=== PATIENT | female | born 1985 | race Caucasian/White ===

== ENCOUNTER 2024-01-22 07:29 | Outpatient (OUT) | payer BC, SELFPAY ==
--- NOTE | 2024-01-22 07:35 | MM_ITS ---
Patient Name: ANGELINA EDWARDS MR#: [id number] : 1985 Exam Date: 01/22/2024 Ordering Doctor: NON-STAFF PHYSICIAN RADIOLOGY REPORT PROCEDURE: MM TOMOSYNTHESIS SCREENING BI COMPARISON: MG MAMM SCREEN 3D JESS CAD, 01/12/2023. INDICATIONS: Screening Calculator Name NCI Breast Cancer Risk Assessment Tool 5 Year Breast Cancer Risk 1.20% Lifetime Breast Cancer Risk 18.60% Personal Breast Cancer No Personal Ovarian Cancer No Treatments None Family Cancers Mother with breast cancer at age ~50. LOCATION: [facility] BREAST COMPOSITION: There are scattered areas of fibroglandular density. FINDINGS: DIAGNOSTIC CATEGORY 1--NEGATIVE. NO CHANGE FROM COMPARISON ASSESSMENT. Scattered benign-appearing calcifications are present. Scattered benign-appearing lymph nodes are present. RIGHT BREAST: No significant suspicious finding. LEFT BREAST: No significant suspicious finding. RECOMMENDATIONS: ROUTINE MAMMOGRAM AND CLINICAL EVALUATION IN 12 MONTHS. PLEASE NOTE: A NORMAL MAMMOGRAM DOES NOT EXCLUDE THE POSSIBILITY OF BREAST CANCER. A CLINICALLY SUSPICIOUS PALPABLE LUMP SHOULD BE BIOPSIED. Dictated by: Radames Figueredo MD on 01/22/2024 at 09:18 Approved by: Radames Figueredo MD on 01/22/2024 at 09:19
== END 2024-01-22 07:30 | disposition home or self-care (01) ==
LOC: RAD 07:32
PROVIDERS: PCP Family Medicine
DX: Z12.31 Encounter for screening mammogram for malignant neoplasm of breast (principal); Z80.3 Family history of malignant neoplasm of breast
CPT/HCPCS: 77063; 77067

== ENCOUNTER 2024-05-23 06:59 | Outpatient (OUT) | payer BC, SELFPAY ==
--- OUTSIDE RECORDS SUMMARY | 2024-05-23 07:03 | XMS_ITS | CCD ---
Author Organization [facility] Inform ion Partnership [facility] Care Team Providers Care Photolettering Machine Operator Name Role Phone ShaijonassharitaDenice Ada Primary Care Physician Abby Patterson Attending Unavailable Abby Patterson Admitting Unavailable QUANG, DR JUAREZ Admitting Unavailable QUANG, DR JUAREZ Attending Unavailable NADERER, DR NYDIA Valentine Primary Care Unavailable QUANG, DR JUAREZ Consulting Unavailable WEST, DR TROY Pineda Consulting Unavailable LAUREL, ANASTACIO Admitting Unavailable LAUREL, ANASTACIO Attending Unavailable LAUREL, ANASTACIO Consulting Unavailable HOY ., DR MALLORY Admitting Unavailable HOY ., DR MALLORY Attending Unavailable HOY ., DR MALLORY Consulting Unavailable NADERER, DR NYDIA Valentine Admitting Unavailable NADERER, DR NYDIA Valentine Attending Unavailable NADERER, DR NYDIA Valentine Primary Care Unavailable NADERER, DR NYDIA Valentine Consulting Unavailable LAURENT FUENTES Attending Unavailable Allergies Allergy Classification Reported Allergen(s) Allergy Type Date of Onset Reaction(s) Facility (2 sources) Erythromycin; Translations: [erythromycin] Drug Allergy [facility] (1 source) Erythromycin Drug Allergy 07-24-2022 [facility] Repository Problems Active Problems Problem Classification Problem Date Documented Da te Episodic/Chronic Other screening for suspected conditions (not mental disorders or infectious disease) (4 sources) Encounter for screening mammogram for malignant neoplasm of breast; Translations: [ENC SCR MAMMO MALIG NEOPLASM BREAST] Onset: 01-12-2023 Episodic Residual codes; unclassified (1 source) Family history of malignant neoplasm of breast; Translations: [FAMILY HX MALIG NEOPLASM OF BREAST] Onset: 01-20-2023 Episodic Past or Other Problems Problem Classification Problem Date Documented Da te Episodic/Chronic Administrative/social admission (4 sources) Encounter for pre-employment examination; Translations: [ENCOUNTER FOR PRE-EMPLOYMENT EXAM] Onset: 03-26-2022 Episodic Results Test Name Value Interpretation Reference Range Facility MG MAMM SCREEN 3D JESS CADon 01-12-2023 MG MAMM SCREEN 3D JESS CAD Patient: ANGELINA EDWARDS Exam Date: 01/12/2023 : 1985 Gender:F Ordering : DR LARRY DEL RIO M.D. Admission #: [id number] Family : Order #: [id number] CLICK HERE TO VIEW EXAM RADIOLOGY REPORT PROCEDURE: MAMMOGRAM SCREENING 3D BILATERAL CAD COMPARISON: None. INDICATIONS: Family history of malignant neoplasm of breast Calculator Name NCI Breast Cancer Risk Assessment Tool 5 Year Breast Cancer Risk 1.10% Lifetime Breast Cancer Risk 18.80% Personal Breast Cancer No Personal Ovarian Cancer No Treatments None Family Cancers Mother with breast cancer at age 50. LOCATION: [facility] BREAST COMPOSITION: Scattered areas fibroglandular density. FINDINGS: DIAGNOSTIC CATEGORY 1--NEGATIVE. Scattered benign-appearing calcifications are present. Scattered benign-appearing lymph nodes are present. RIGHT BREAST: No significant suspicious finding. LEFT BREAST: No significant suspicious finding. RECOMMENDATIONS: ROUTINE MAMMOGRAM AND CLINICAL EVALUATION IN 12 MONTHS. PLEASE NOTE: A NORMAL MAMMOGRAM DOES NOT EXCLUDE THE POSSIBILITY OF BREAST CANCER. A CLINICALLY SUSPICIOUS PALPABLE LUMP SHOULD BE BIOPSIED. Dictated by: Troy Figueredo MD on 01/12/2023 at 10:38 Approved by: Troy Figueredo MD on 01/12/2023 at 10:40 Normal [facility] PAP [id number] 01-01-2023 Cytology report Cyto stain Doc (Cvx/Vag) Note Invalid Interpretation Code [facility] Comment on above: Result Comment: TEST S RESULT FLAG UNITS REF RANGE LAB Clinician Provided Cytology Information Source.............Endocervix No. of containers..01 ThinPrep Vial DIAGNOSIS: 01 NEGATIVE FOR INTRAEPITHELIAL LESION OR MALIGNANCY. Specimen adequacy: 01 Satisfactory for evaluation. Endocervical and/or squamous metaplastic cells (endocervical component) are present. Performed by: Felix Moctezuma Surveillance Systems Engineer (ASCP) . 01 Note: Note 01 The Pap smear is a screening test designed to aid in the detection of premalignant and malignant conditions of the uterine cervix. It is not a diagnostic procedure and should not be used as the sole means of detecting cervical cancer. Both false-positive and false-negative reports do occur. Test Methodology: Note 01 This liquid based ThinPrep(R) pap test was screened with the use of an image guided system. FLAG LEGEND: L-Low Normal,H-High Normal,LL-Alert Low,HH-Alert High <-Panic Low,>-Panic High,A-Abnormal,AA-Critical Abnormal Performed at: [address] [place] [address] Orin Acharya MD, Performed By: #### 3 [id number] #### [facility] [address] [place] [address] HPV 16+18+31+33+35+39+45 +51+52+56+58+59+66+6 8 DNA Probe+sig amp Ql (Cvx) Negative Invalid Interpretation Code Negative [facility] Comment on above: Result Comment: This nucleic acid amplification test detects fourteen high-risk HPV types (16,18,31,33,35,39,45,51,52,56,58,59,66,68) without differentiation. Performed at: [facility] [place] [id number] MD Patrizia Sr Performed at: =[facility] [address] [id number] MD Patrizia Sr Performed By: #### 3 [id number] #### [facility] [address] [place] [address] [place] [address] Coding Summary.on 12-31-2022 Coding Summary. CD:[id number] Ww +PGhlYWQ+HV5IDEDmD83ss PXcrH1qR6WTAHiEDbqmSSY LNAtWOyBsbxSfUM4drNBvH XJu IC8+IJ3pSIZxUzldhAVnj8 F9mCH6A77jxc7qDPwspIV6 RXVpPfKjlbubc3yjcCf4PH cuNmluOyBt AHSsoZ35WSG3sF28Rv85oX LoqPFdw7lwbHn1WhMkSLEz ABY0sXycTZtvv3MhZOGzU3 6abHQtm8U0 EXEjiZiseHWmCxElbMS0aF 3qFQezckrna6slbvhzTrt0 fm45zOOko2X0vUU4S1Rsnr P2SQDfySTx NmylpCGOyA4cnzfnu9fwdt hpZnChWXVuNOl6QJq1BHZq hJnsJoJcLY60SXZ2CVOkxf ViH2TdTGWu xUguOoI2m3T0Lc6NR3ULRb ucU1NDRDAYQEwtbOT+PC90 aj05R3AfVaelWhj8FHHdRB T5dNA0dV7r PUTgCSyus5Z7aQH2L6Mcpr Fyel7kb5yoUFXjNVkeZ80d iMJoz6A8WETnfGU8RBDaoA xkDzYyrB18 Oyc+NUGptTouv3ZhEclqi5 efr2pjmOr7CieaFSEsbqGg tLcvUEQ7m3GfFb6gBQKxbA W1rAR9iC1t BjBtOwE7FNbyT534QbNnjS XtZxipU20jH7YxjEQ+PHRy Mkt3GYXfiPtiES4qW3InZP RpbmctbGVm jVywSH1pPHLflokeKHWgrT 2dFAXqQ6o1BeIoQxQ1UDll F9PeUTNswnguPn52qQ2iGc ThQfS8HQbq D2QodqD4PFAlhSBgXAjpWE G0K79oi2M1QWLsJHAmUSW9 yNM5oN6rlLxfsogmdPHroI sgdmVydGlj NVleAXgyW542YDGvfDiuSs NvZGluZyBEYXRlOiAgMDQv MDUvMjAyMzwvdGQ+PHRkIH M4jVurMGVo zIDhPPusQc5ijQegmYahCF 0hVOEubkpiWPIqpY3qPGUy gPVtvVprEI1gFACcoqblr4 66NiNcNKP7 USXrpGGxT6BchQ9qHrZdTR UbQLWdJ3QddRPwIPodA468 ULisJdR6NKIokfVpY5HrZH FsaWduOiB0 k5Q1Ep6Yu2IcnkxbR8PokO BnLsJcMwupRRv5U5TpKyzi dHI+OK18KGNpSE25LMk8BZ R8gOlrWDgd JQSgG3KruD8bHhRjDKEnOX RkOyc+PHRhYmxlIHdpZHRo SNoiNNUjLuRaxPsvXX1rSc 9yZGVyLWNv aXmnfTRsGcWsm1ucPIUeNA hcJU2ddNwjJ2TbhYW5AFLc t3l4Cv56R61rE2MygBT+PG YciUD0yKN3 jT1lSwKeQeX3XZjnD945Vy WulYLrQkfyn0edb4avaTp1 OpN2JLKwpzUylIxtJJV1o6 KgDu52Y37m IHdpZHRoPSIxNSUiIHZhbG mzad5tmK2sCh0+PGNvbCB3 uKL7eF6uMuIoAuY5EZloQ9 49InRvcCIv Qhtfs7bhd0ltmNm9OgNmSD PyhhOnkNxkFQB3r4CiJs25 X6VooLpqo2AiMph6xq21nU Uct5P9lJM0 T8AmLBGwdcostBQrwZgtPT 2xPSXhnmjeJCUdcL8mFKVr F2s2LlIxIlE7DLpmK6Buen X5EMFvzBNl AKFfzMMGrU4xvwrbz6tnft ebLrFiOCSaTQc2QQr6DMRj fViyOyLrHKS6RnB1IXP4xN GkiM7qoJso nokbzC2mUlr+CXU4zNEhcD ERYT5wHlappUU+PHRkIHN0 pVioTTlaOZBwpX4mBCDrX3 r2GfXdNcB4 PRqcR1ZllsH4UBOphNLlOZ IwfDYQpZ7vwvdto5hdwxtj McDrOPMwSId7IGp9GVFrcN duOiBsZWZ0 FsO6NKJ4rMGkoO5viXpdif mndF1yTfb+QmlydGggRGF0 RXa0L2NwYyy7CCAthMytZL 0ncGFkZGlu Wb2hdPlheRrmVW1mXBEjub egh161CpEvl5scMVJzkLJh XUcgNYP0I94lo0H2VDPtGZ HjOJB3xFQ1 oW1wyPdebatywTFqoLnplx MzlCcdHDvmNPidD984IBRh lYjbUtZjTGk8J0KhTbv9XD ZwzSrjEM6i uIHvXZnyTn4whIhdeKbcJU 2vINBpsxdmw971WaOaq6ql WKCnpAXpRXlcNFD4S25nn0 P1LTXiOXXm EFG7jKT3uJ2rfQxtujipbU VmdDsgdmVydGljYWwtYWxp K284TLDyyXasAcEckNc4H8 LeQff3CJHd kWtuVY5iuFTjTBzbCo1yeD crvBhpJR4xQWFnhokqu664 RtIsn9ajMNUhyUHnEVpuRC U3O50ga5K8 RQQvPNXhUVP8dRR9cC8poI lnbjogbGVmdDsgdmVydGlj HKvhNEzqW678DROvgZxrTx BhdGllbnQg CCohZTf6B3ZwXfbyrMC+PC 47MQUxEZ46uLUwmOSwx3jj vIp6FjCwIAOeGIB7dEadNA djr2UpWTLm F60pxUPec6V3DODyfEsitA ScBjZdoUT4vR4aDAxusxan r5jalsazSwbqo1ekrx48xN 09R92wTCek ZHRoPSIzMCUiIHZhbGlnbj 7piP8eZq3+TGTntFP6wCE8 vQ9xUBHnFvQ5DLobK735Ju RvcCIvPjxj x1vsh6doaVa3TmF2ELEazf RcrHyoZGE8p6CjRp19W29e IHdpZHRoPSIyMCUiIHZhbG mthm1agB3v Ii8+WTZtvCV3uCA4iT7gBt NoUeE3DHcbR815BySfeOPq XmmzB85hV7OgyTX+PHRyPj l1TJWymNsl YK6qeOZuRXztFx3xPJC8Nn IkSsRaNLbzQ0AwPAQkgyuk qahlnVB8LQGiWVNskR94Zn 9udDogMTBw jJHDpF4ladfit1geapywKu LdJIOpIPg6HWg4PZFgrPly HhIxQBV1TbG5LUD4zBMwaD 1hbGlnbjog iA0zY7BwEHOlzoxeXz25eS 7pQrPiLbB7RHabFvz+S0FN ZO7CWEOAIG7PN9QZHL30V4 KrFfn0QWMv zXnqNX1mvMIwSHqqGx2beQ awcZdqKD5xXUAjtpxlLBWr bS8hPUCmnACwqMmgJK3jMO Zclcxfm474 NiEnVJJ0KHVtiMTeX5SjfK 3iSrUbJGSjJONlZ6SawSGv TXztN344SUoqBiC0UXUwfx MaQ5JmNZAb oEjuGtN1r6P1Br2nWN5rLZ 5gXJdaWZ82FB47lVXfb1Z4 kFI2F2SvVNXpdrvurkydeK G3QUJwHNBn uJ74qOXnFLllTp8fs8B0p4 72DILgMBHznQ16Kq7xpDyf FAHazWBRtN1jurxro6glgo ogIzAwMDAw XKg3STb2IGMnsSzrQbZoAR A0CsD3MWZ8wSUpyW5pgCzt bmpczN8mHxt+MzkgWWVhcn M6L5PaGms2 IFBdlBkvLL0vwYEwXUgzJb 8xpLglvVtaOK4rYUFmwctp CFIslB5xRWGauYMrqMxtYM 4wNTBpbjtm v508IuViWLH3IZRbrFQgT1 IqyC3bVzLtRGDoCWAoG0Mq tZOhEDefL978PXobMvN4QA CidtBgH6En IOUkrAggMrO3u5E4Yo0RAT 7csBC7E2CyJlr9RQAnlTzb YJ4iwLPwAPkxYs9fdDecbN qxJO8dUGPm xesnIVYgnT9iORNtkIOigB zjAO3cVCBbwxgwu790XkFu LBI9HUVaqQHrE3MhlI6wJb AjMDAwMDAw M8GqhWWdZLrhF811XArmVm H4ACAqosHyO4FiHOEnhGra GyE3v1K1Ca8WSWJcEPRfmP QuSqX6K4Oh PjwvdHI+GB68FAFxRF33uW XesZFup3lmkEo0UdZaAXKx LXP7oSjaOHwao4CfCFXhV7 7kkJYzw5Y9 ZMRnyStnjAOhXkKohZC5lJ 3uMIngdnrqe0cobhpyYpfp b0kduv86xY17Q29uLHanSH RoPSIzMCUi OINoeNgjlx4jfW1gHq4+PG TgsSX3xXC5uH3qKuLeNvZ1 HAkwT407SpQmzBIuHcwjc2 grc9imsKy2 QhWwVUQhkjKcsWunPCM9r9 FqHq53J96bIIdaUYZnKHEf LXJjZIBmtWnuzn7kaC5fNu 8+LO3qn9qy sq95oI38wOX+SZDzUXT8lA tuGCvxTPNmsB8iVPdvJqK9 MENpGbRkvT17wNWlZNmfSh 1yaWdodDog DU9kDXMndubpu401AzHuo3 tdJJYvfRSaLEisAUY0M49e m1S2ATVbRCHaLTW0aYY6pG 1hbGlnbjog bGVmdDsgdmVydGljYWwtYW idT028FMCuaOqfEvWclZIa G1zeirXYJT5hXyqfgZL+PH RdDIU9aOcf KUpqEXUzkA5gOVLiA1f9Wl GmJfO0SFhaV1CoskJ6ZNCt mCTmUKLlxDOYoN2zcbfco5 xvcjogIzAw BCUiZFo4ELq5OXVkbIrtCq HbERT5UeK7IUM9eQDyaT4a tSqqfqvmoD8jLiz+RklOOj wvdGQ+PHRk QXH7aDagXGfoCYUcsW6lIW KqN4f9DvBbGmD3DXmsE0Db crW4TXKofQLkDRJlgIJSnF 0oybxtz8fk zmmlAmZvICVnPCi3FCd8ND WahHjuNfGmLAS6SjV1TSY8 jVEvhL0puYvueziroJ6eOl c+TVJOOjwv dGQ+GNTqZAN0xEtjVZelDF OxgD7qVBEqW1b5YqSdPiA1 CAojH0OjueA5LYDgvXJbXP CwoXUEoC7l ohqbs4udzxccLlVaDPAfIB b1DSk4AEOydSyrOuPfAVU4 FbB2YGP9hQFacA5rwQxbdb plaL5nVvv+ ZZB8JBP1UK15EH86C7YiPf wvdGFibGU+PHRhYmxlIHdp ZHRoPScxMDAlJyBzdHlsZT 3kEu4jOCHv LWNvbGxh (more content not included)... Normal [facility] CBC AUTO DIFFon 12-30-2022 BASO # 0.0 103/ul Normal 0.0-0.1 [facility] Comment on above: Performed By: #### C BC #### [facility] [address] [address] [address] Josephine Dutta Basophils/100 WBC (Bld) 0.4 % Normal 0.2-2.0 [facility] Comment on above: Performed By: #### C BC #### [facility] [address] [address] [address] Josephine Dutta EO # 0.2 103/ul Normal 0.0-0.7 [facility] Comment on above: Performed By: #### C BC #### [facility] [address] [address] [address] Josephine Dutta Eosinophils/100 WBC (Bld) 3.2 % Normal 0.9-7.0 [facility] Comment on above: Performed By: #### C BC #### [facility] [address] [address] [address] Josephine Dutta Erythrocyte distribution width (RBC) [Ratio] 12.9 % Normal 11.0-15.0 [facility] Comment on above: Performed By: #### C BC #### [facility] [address] [address] [address] Josephine Dutta Hematocrit (Bld) [Volume fraction] 40.9 % Normal 36.0-48.0 [facility] Comment on above: Performed By: #### C BC #### [facility] [address] [place] [address] Dr. Josephine Dutta Hemoglobin (Bld) [Mass/Vol] 14.5 g/dL Normal 12.0-16.0 [facility] Comment on above: Performed By: #### C BC #### [facility] [address] [place] [address] Dr. Josephine Dutta IG # 0.03 10e3/ul Normal 0.00-0.03 [facility] Comment on above: Performed By: #### C BC #### [facility] [address] [place] [address] Dr. Josephine Dutta IG % 0.4 % Normal 0.0-0.5 [facility] Comment on above: Performed By: #### C BC #### [facility] [address] [place] [address] Dr. Josephine Dutta LYMPH # 2.1 103/ul Normal 1.2-3.8 [facility] Comment on above: Performed By: #### C BC #### [facility] [address] [place] [address] Dr. Josephine Dutta Lymphocytes/100 WBC (Bld) 29.1 % Normal 20.5-60.0 [facility] Comment on above: Performed By: #### C BC #### [facility] [address] [place] [address] Dr. Josephine Dutta MANUAL DIFF REQ NO Normal [facility] Comment on above: Performed By: #### C BC #### [facility] [address] [place] [address] Dr. Josephine Dutta MCH (RBC) [Entitic mass] 31.0 pg Normal 26.7-34.0 [facility] Comment on above: Performed By: #### C BC #### [facility] [address] [place] [address] Dr. Josephine Dutta MCHC (RBC) [Mass/Vol] 35.5 g/dL Critically high 29.9-35.2 [facility] Comment on above: Performed By: #### C BC #### [facility] [address] [address] [address] Josephine Dutta MCV (RBC) [Entitic vol] 87.6 fL Normal 81.0-99.0 [facility] Comment on above: Performed By: #### C BC #### [facility] [address] [address] [address] Josephine Dutta MONO # 0.7 103/ul Normal 0.3-0.8 [facility] Comment on above: Performed By: #### C BC #### [facility] [address] [address] [address] Josephine Dutta Monocytes/100 WBC (Bld) 9.3 % Normal 1.7-12.0 [facility] Comment on above: Performed By: #### C BC #### [facility] [address] [place] [address] Dr. Josephine Dutta NEUT # 4.1 103/ul Normal 1.4-6.5 [facility] Comment on above: Performed By: #### C BC #### [facility] [address] [place] [address] Dr. Josephine Dutta Neutrophils/100 WBC (Bld) 57.6 % Normal 43.0-75.0 [facility] Comment on above: Performed By: #### C BC #### [facility] [address] [place] [address] Dr. Josephine Dutta Platelet mean volume (Bld) [Entitic vol] 9.6 fL Normal 9.5-13.5 [facility] Comment on above: Performed By: #### C BC #### [facility] [address] [place] [address] Dr. Josephine Dutta PLT 211 103/ul Normal 150-450 [facility] Comment on above: Performed By: #### C BC #### [facility] [address] [place] [address] Dr. Josephine Dutta RBC 4.67 106/ul Normal 4.20-5.40 [facility] Comment on above: Performed By: #### C BC #### [facility] [address] [place] [address] Dr. Josephine Dutta WBC 7.1 103/ul Normal 4.0-11.0 [facility] Comment on above: Performed By: #### C BC #### [facility] [address] [place] [address] Dr. Josephine Dutta GLYCOHEMOGLOBIN A1Con 2022 ADA RECOMMENDATION SEE BELOW Normal [facility] Comment on above: Result Comment: ADA RECOMMENDED LIMIT 4.0 - 6.0 ADA THERAPEUTIC TARGET < 7.0 ACTION SUGGESTED > 7.0 Performed By: #### A 1C #### [facility] [address] [place] [address] Dr. Josephine Dutta Glucose [Mass/Vol] 77 mg/dL Normal [facility] Comment on above: Performed By: #### A 1C #### [facility] [address] [place] [address] Dr. Josephine Dutta HbA1c (Bld) [Mass fraction] 4.3 % Critically low 4.5-6.2 [facility] Comment on above: Performed By: #### A 1C #### [facility] [address] [place] [address] Dr. Josephine Dutta LIPID PROFILEon 12-30-2022 CHOL-HDL RATIO NORM SEE BELOW Normal [facility] Comment on above: Result Comment: 3.3 - 4.4 LOW RISK 4.4 - 7.1 AVERAGE RISK 7.1 - 11.0 MODERATE RISK >11.0 HIGH RISK Performed By: #### C MP, LIPID, TSH #### [facility] [address] [place] [address] Dr. Josephine Dutta Cholesterol [Mass/Vol] 176 mg/dL Normal <=200 [facility] Comment on above: Performed By: #### C MP, LIPID, TSH #### [facility] [address] [place] [address] Dr. Josephine Dutta Cholesterol in HDL [Mass/Vol] 50 mg/dL Normal 40-60 [facility] Comment on above: Performed By: #### C MP, LIPID, TSH #### [facility] [address] [place] [address] Dr. Josephine Dutta Cholesterol in LDL [Mass/Vol] 99.0 mg/dL Normal [facility] Comment on above: Performed By: #### C MP, LIPID, TSH #### [facility] [address] [address] [address] Josephine Dutta Cholesterol.total/Ch olesterol in HDL [Mass ratio] 3.5 {ratio} Normal [facility] Comment on above: Performed By: #### C MP, LIPID, TSH #### [facility] [address] [address] [address] Josephine Dutta HDL NORMAL > or = 60 mg/dl - LO W CARDIOVASCULAR RISK <40 mg/dl - HIGH CARDIOVASCULAR RISK Normal [facility] Comment on above: Performed By: #### C MP, LIPID, TSH #### [facility] [address] [place] [address] Dr. Josephine Dutta LDL CALC NORMAL SEE BELOW Normal [facility] Comment on above: Result Comment: <100 mg/dl OPTIMAL 100 - 129 mg/dl NEAR OR ABOVE OPTIMAL 130 - 159 mg/dl BORDERLINE HIGH 160 - 189 mg/dl HIGH >190 mg/dl VERY HIGH Performed By: #### C MP, LIPID, TSH #### [facility] [address] [address] [address] Josephine Dutta Triglyceride [Mass/Vol] 135 mg/dL Normal <=150 [facility] Comment on above: Performed By: #### C MP, LIPID, TSH #### [facility] [address] [address] [address] Josephine Dutta VLDL CALC 27.0 mg/dL Normal [facility] Comment on above: Performed By: #### C MP, LIPID, TSH #### [facility] [address] [address] [address] Josephine Dutta PROF 14(COMP METB)on 023 Albumin [Mass/Vol] 4.1 g/dL Normal 3.4-5.0 [facility] Comment on above: Performed By: #### C MP, LIPID, TSH #### [facility] [address] [address] [address] Josephine Dutta Albumin/Globulin [Mass ratio] 1.2 {ratio} Normal [facility] Comment on above: Performed By: #### C MP, LIPID, TSH #### [facility] [address] [address] [address] Josephine Dutta ALP [Catalytic activity/Vol] 44 U/L Critically low 46-116 [facility] Comment on above: Performed By: #### C MP, LIPID, TSH #### [facility] [address] [address] [address] Josephine Dutta ALT [Catalytic activity/Vol] 34 U/L Normal 14-59 [facility] Comment on above: Performed By: #### C MP, LIPID, TSH #### [facility] [address] [place] [address] Dr. Josephine Dutta Anion gap [Moles/Vol] 13.6 mmol/L Normal [facility] Comment on above: Performed By: #### C MP, LIPID, TSH #### [facility] [address] [place] [address] Dr. Josephine Dutta AST [Catalytic activity/Vol] 24 U/L Normal 15-37 [facility] Comment on above: Performed By: #### C MP, LIPID, TSH #### [facility] [address] [place] [address] Dr. Josephine Dutta Bilirubin [Mass/Vol] 1.0 mg/dL Normal 0.2-1.0 [facility] Comment on above: Performed By: #### C MP, LIPID, TSH #### [facility] [address] [place] [address] Dr. Josephine Dutta Calcium [Mass/Vol] 9.4 mg/dL Normal 8.5-10.1 [facility] Comment on above: Performed By: #### C MP, LIPID, TSH #### [facility] [address] [place] [address] Dr. Josephine Dutta Chloride [Moles/Vol] 99 mmol/L Normal 98-107 [facility] Comment on above: Performed By: #### C MP, LIPID, TSH #### [facility] [address] [place] [address] Dr. Josephine Dutta CO2 [Moles/Vol] 27.5 mmol/L Normal 21.0-32.0 [facility] Comment on above: Performed By: #### C MP, LIPID, TSH #### [facility] [address] [address] [address] Josephine Dutta Creatinine [Mass/Vol] 0.66 mg/dL Normal 0.55-1.02 [facility] Comment on above: Performed By: #### C MP, LIPID, TSH #### [facility] [address] [address] [address] Josephine Dutta EGFR-AF CHILEAN >60 Normal >=60 [facility] Comment on above: Performed By: #### C MP, LIPID, TSH #### [facility] [address] [address] [address] Josephine Dutta EGFR-NON AF CHILEAN >60 Normal >=60 [facility] Comment on above: Performed By: #### C MP, LIPID, TSH #### [facility] [address] [address] [address] Josephine Dutta Globulin (S) [Mass/Vol] 3.3 g/dL Normal [facility] Comment on above: Performed By: #### C MP, LIPID, TSH #### [facility] [address] [address] [address] Josephine Dutta Glucose [Mass/Vol] 85 mg/dL Normal 74-106 [facility] Comment on above: Performed By: #### C MP, LIPID, TSH #### [facility] [address] [address] [address] Josephine Dutta Potassium [Moles/Vol] 4.1 mmol/L Normal 3.5-5.1 [facility] Comment on above: Performed By: #### C MP, LIPID, TSH #### [facility] [address] [address] [address] Josephine Dutta Protein [Mass/Vol] 7.4 g/dL Normal 6.4-8.2 [facility] Comment on above: Performed By: #### C MP, LIPID, TSH #### [facility] [address] [address] [address] Josephine Dutta Sodium [Moles/Vol] 136 mmol/L Normal 136-145 [facility] Comment on above: Performed By: #### C MP, LIPID, TSH #### [facility] [address] [place] [address] Dr. Josephine Dutta Urea nitrogen [Mass/Vol] 12.0 mg/dL Normal 7.0-18.0 [facility] Comment on above: Performed By: #### C MP, LIPID, TSH #### [facility] [address] [place] [address] Dr. Josephine Dutta Urea nitrogen/Creatinine [Mass ratio] 18.2 mg/mg Normal [facility] Comment on above: Performed By: #### C MP, LIPID, TSH #### [facility] [address] [place] [address] Dr. Josephine Dutta TSHon 12-30-2022 TSH 5.052 uIU/mL Critically high 0.358-3.740 [facility] Comment on above: Performed By: #### C MP, LIPID, TSH #### [facility] [address] [place] [address] Dr. Josephine Dutta PAP [id number] 12-24-2022 Collection Technique BRUSH-SPATULA Normal F [facility] Comment on above: Performed By: #### 3 [id number] #### [facility] [address] [place] [address] Gynecological Body Site ENDOCERVIX Normal [facility] Comment on above: Performed By: #### 3 [id number] #### [facility] [address] [place] [address] Previous Cytology Negative Normal [facility] Comment on above: Performed By: #### 3 [id number] #### [facility] [address] [place] [address] Previous Treatment NONE Normal [facility] Comment on above: Performed By: #### 3 [id number] #### [facility] [address] [place] [address] Physician Orderon 12-24-2022 Physician Order [id number] Normal [facility] QUANTIFERON TB GOLD PLUSon 0 03-28-2022 QuantiFERON Criteria Comment Normal [facility] Comment on above: Result Comment: The QuantiFERON-TB Gold Plus result is determined by subtracting the Nil value from either TB antigen (Ag) tube. The mitogen tube serves as a control for the test. Performed By: #### Q NTTB #### [facility] [address] [place] [address] Dr. Josephine Dutta QuantiFERON Incubation Incubation performed. Normal [facility] Comment on above: Performed By: #### Q NTTB #### [facility] [address] [place] [address] Dr. Josephine Dutta QuantiFERON Mitogen Value >10.00 Normal [facility] Comment on above: Performed By: #### Q NTTB #### [facility] [address] [place] [address] Dr. Josephine Dutta QuantiFERON Nil Value 0.00 IU/mL Normal [facility] Comment on above: Performed By: #### Q NTTB #### [facility] [address] [place] [address] Dr. Josephine Dutta QuantiFERON TB1 Ag Value 0.00 IU/mL Normal [facility] Comment on above: Performed By: #### Q NTTB #### [facility] [address] [place] [address] Dr. Josephine Dutta QuantiFERON TB2 Ag Value 0.01 IU/mL Normal [facility] Comment on above: Performed By: #### Q NTTB #### [facility] [address] [place] [address] Dr. Josephine Dutta QuantiFERON-TB Gold Plus Negative Normal Negative [facility] Comment on above: Result Comment: Chem iluminescence immunoassay methodology Performed By: #### Q NTTB #### [facility] [address] [place] [address] Dr. Josephine Dutta HEPATITIS B SURFACE ANTIBODY , QUANTon 03-27-2022 Hepatitis B Surf AB Quant >1000.0 Normal Immunity>9.9 [facility] Comment on above: Result Comment: Stat us of Immunity Anti-HBs Level Inconsistent with Immunity 0.0 - 9.9 Consistent with Immunity >9.9 Performed By: #### H EPBSRF #### [facility] [address] [place] [address] Dr. Josephine Dutta MMR IMMUNITYon 03-27-2022 Mumps Abs, IgG 94.8 AU/mL Normal Immune >10.9 [facility] Comment on above: Result Comment: Nega tive <9.0 Equivocal 9.0 - 10.9 Positive >10.9 A positive result generally indicates past exposure to Mumps virus or previous vaccination. Performed By: #### M MRIMMU #### [facility] [address] [place] [address] Dr. Josephine Dutta Rubella Antibodies, IgG 2.04 index Normal Immune >0.99 [facility] Comment on above: Result Comment: Non- immune <0.90 Equivocal 0.90 - 0.99 Immune >0.99 Performed By: #### M MRIMMU #### [facility] [address] [place] [address] Dr. Josephine Dutta Rubeola Ab, IgG >300.0 Normal Immune >16.4 [facility] Comment on above: Result Comment: Nega tive <13.5 Equivocal 13.5 - 16.4 Positive >16.4 Presence of antibodies to Rubeola is presumptive evidence of immunity except when acute infection is suspected. Performed By: #### M MRIMMU #### [facility] [address] [place] [address] Dr. Josephine Dutta VARICELLA IGG ABon 2 Varicella Zoster IgG 964 index Normal Immune >165 [facility] Comment on above: Result Comment: Nega tive <135 Equivocal 135 - 165 Positive >165 A positive result generally indicates exposure to the pathogen or administration of specific immunoglobulins, but it is not indication of active infection or stage of disease. Performed By: #### V CHAUNCEY #### [facility] [address] [place], [place] [address] Dr. Josephine Dutta Encounters Encounter Date Encounter Type Care Provider Facility Start: 05-18-2024 End: 05-18-2024 ambulatory LAURENT FUENTES Not Available Start: 01-12-2023 End: 01-13-[address] LARRY DEL RIO Facility:[facility] Start: 01-03-2023 Encounter for genera l adult medical examination without abnormal findings DR NYDIA INGRAM [facility] Start: 12-30-2022 End: 12-31-[address] NYDIA INGRAM Facility:[facility] Start: 12-30-2022 End: 12-31-2022 Encounter for general adult medical examination without abnormal findings DR NYDIA INGRAM Facility:[facility] Start: 12-24-2022 End: 12-25-2022 ambulatory Abby [place] [place]: 12-24-2022 End: 12-24-2022 Lab Drop off Abby Patterson [facility] Start: 07-24-2022 End: 07-25-[address] MOHAMUD VAUGHAN . Facility:[facility] Start: 03-26-2022 End: 03-27-2022 ambulatory ANASTACIO BARRAGAN Facility:[facility] Payers Date Payer Category Payer Unknown [id number] 1985 Unknown [id number] 2.16.8 [id number] 1985 Unknown [id number] 2.16.84 [id number] 1985 Unknown [id number] 2.16.84 [id number] 1983 Unknown [id number] 2.16.84 [id number] 1961 Self-pay Unknown [id number] 2.16.84 [id number] Unknown [id number] 2.16.84 [id number] Social History Date Type Detail Facility Tobacco smoking status No Smoking Status Entered [facility] Sex Assigned At Female [facility] Evaluation + Plan note 12-24-2022 Note Date & Type Note Facility 12-24-2022 Evaluation + Plan note Diagnostic Tests PendingPAP [id number]/24/22 [facility] Hospital course Narrative Note Date & Type Note Facility Hospital course Narrative No data available for this section [facility] Hospital Discharge instructions Note Date & Type Note Facility Hospital Discharge instructions No data available for this section [facility] Progress note Note Date & Type Note Facility Progress note No data available for this section [facility] Summary Purpose Family History No Family History Records FoundNo Family History Records FoundNo Family History Records Found Advance Directives No Advanced Directives Records FoundNo Advanced Directives Records FoundNo Advanced Directives Records Found Additional Source Comments Patient Care team informatio n (unrecognized section and content) Personnel Name: Denice Pedro DO Address: Address: [address] [place] [address] INFORMATION SOURCE (unrecogn ized section and content) DATE CREATED AUTHOR 01/02/2023 [facility] DATE CREATED AUTHOR AUTHOR'S ORGANIZ ATION 01/21/2023 [facility] DATE CREATED AUTHOR AUTHOR'S ORGANIZ ATION 05/20/2024 [facility] EPIC FOR RECORDS PERTAINING TO PATIENTS WHO ARE OR HAVE BEEN ENROLLED IN A CHEMICAL DEPENDENCY/SUBSTANCEABUSE PROGRAM, SOME INFORMATION MAY BE OMITTED. This clinical summary was aggregated from multiple sources. Caution should be exercised in using it in the provision of clinical care. This summary normalizes information from multiple sources, and as a consequence, information in this document may materially change the coding, format and clinical context of patient data. In addition, data may be omitted in some cases. CLINICAL DECISIONS SHOULD BE BASED ON THE PRIMARY CLINICAL RECORDS. [facility] [employer] provides no warranty or guarantee of the accuracy or completeness of information in this document.
[2024-05-23 07:38] LABS: Basophils Percent Auto 0.3 % (0.2-2.0); Eosinophils Absolute Auto 0.2 10^3/uL (0.0-0.7); Hematocrit 37.3 % (36.0-48.0); Hemoglobin 13.1 g/dL (12.0-16.0); Immature Granulocytes Abs Auto 0.02 10^3/uL (0.00-0.03); Immature Granulocytes Pct Auto 0.3 % (0.0-0.5); Lymphocytes Absolute Auto 1.9 10^3/uL (1.2-3.8); Lymphocytes Percent Auto 28.5 % (20.5-60.0); Mean Corpuscular HGB Conc 35.1 g/dL (29.9-35.2); Mean Corpuscular Volume 88.4 fL (81.0-99.0); Mean Platelet Volume 10.2 fL (9.5-13.5); Monocytes Absolute Auto 0.5 10^3/uL (0.3-0.8); Monocytes Percent Auto 7.8 % (1.7-12.0); Neutrophils Absolute Auto 4.1 10^3/uL (1.4-6.5); Neutrophils Percent Auto 60.1 % (43.0-75.0); Platelet Count 189 10^3/uL (150-450); Red Blood Count 4.22 10^6/uL (4.20-5.40); Red Cell Distribution Width 13.2 % (11.0-15.0); White Blood Count 6.8 10^3/uL (4.0-11.0)
[2024-05-23 07:58] LABS: Alanine Aminotransferase 25 U/L (14-59); Albumin Globulin Ratio 1.3; Albumin Level 3.6 g/dL (3.4-5.0); Alkaline Phosphatase 44 U/L (46-116); Anion Gap 12.8; Aspartate Amino Transferase 16 U/L (15-37); Bilirubin Total 0.7 mg/dL (0.2-1.0); Calcium 9.1 mg/dL (8.5-10.1); Carbon Dioxide 25.2 mmol/L (21.0-32.0); Chloride 105 mmol/L (98-107); Chol HDL Ratio 3.8; Cholesterol 150 mg/dL (<=200); Estimated GFR (African America >60 (>=60); Estimated GFR (Non-African Ame >60 (>=60); Globulin 2.8 g/dL; Glucose 88 mg/dL (74-106); HDL Cholesterol 40 mg/dL (40-60); Sodium 139 mmol/L (136-145); Thyroid Stimulating Hormone 5.246 uIU/mL (0.358-3.740); Total Protein 6.4 g/dL (6.4-8.2); Triglycerides 182 mg/dL (<=150); VLDL CHOLESTEROL 36.4 mg/dL
[2024-05-23 07:59] LABS: Estimated Average Glucose 74 mg/dL; Glycohemoglobin A1C 4.2 % (4.5-6.2)
== END 2024-05-23 07:00 | disposition home or self-care (01) ==
LOC: LAB 07:01
PROVIDERS: PCP Family Medicine; Visit Provider Family Medicine
DX: Z00.00 Encounter for general adult medical examination without abnormal findings (principal)
CPT/HCPCS: 36415; 80053; 80061; 83036; 84443; 85025

== ENCOUNTER 2024-09-07 09:47 | Outpatient (OUT) | payer BC, SELFPAY ==
[2024-09-07 11:53] LABS: Free T4 0.97 ng/dL (0.76-1.46)
--- OUTSIDE RECORDS SUMMARY | 2024-09-12 10:07 | XMS_ITS | CCD ---
Author Organization [facility] Care Team Providers Care Prepress Supervisor Name Role Phone Annabella Pedrofer Ada Primary Care Physician [phone] Abby Patterson Attending Unavailable Abby Patterson Admitting Unavailable QUANG, DR JUAREZ Admitting Unavailable QUANG, DR JUAREZ Attending Unavailable JUAN JOSE, DR NYDIA Valentine Primary Care Unavailable QUANG, DR JUAREZ Consulting Unavailable WINDSOR, DR TROY Pineda Consulting Unavailable LAUREL, ANASTACIO Admitting Unavailable LAUREL, ANASTACIO Attending Unavailable LAUREL, ANASTACIO Consulting Unavailable ALEXUS ., DR MALLORY Admitting Unavailable HOY ., DR MALLORY Attending Unavailable HOY ., DR MALLORY Consulting Unavailable JUAN JOSE, DR NYDIA Valentine Admitting Unavailable JUAN JOSE, DR NYDIA Valentine Attending Unavailable JUAN JOSE, DR NYDIA Valentine Primary Care Unavailable JUAN JOSE, DR NYDIA Valentine Consulting Unavailable LAURENT FUENTES Attending Unavailable Laurent Fuentes MD Primary Care Provider Allergies Allergy Classification Reported Allergen(s) Allergy Type Date of Onset Reaction(s) Facility (4 sources) Erythromycin; Translations: [erythromycin] Drug Allergy 05-18-2024 [facility] (1 source) Erythromycin Drug Allergy 07-24-2022 [facility] Repository Medications Current Medications Medication Drug Class(es) Dates Sig (Normalized) Sig (Original) cetirizine hydrochloride 10 mg oral tablet (2 sources) Histamine-1 Receptor Antagonist Start: 11-26-2023 take 1 tablet by mouth once daily cetirizine (ZyrTEC) 10 MG tablet Indications: Seasonal allergic rhinitis due to pollen Take 1 tablet (10 mg) by mouth Daily 90 tablet 3 11/26/2023 Active ethinyl estradiol 0.02 mg / levonorgestrel 0.1 mg oral tablet (2 sources) Progestin, Estrogen, Progestin-containi ng Intrauterine Device levonorgestrel-ethi nyl estradiol (Lessina) 0.1-20 MG-MCG tablet 1 (one) time each day at the same time Active ibuprofen 800 mg oral tablet (2 sources) Nonsteroidal Anti-inflammatory Drug Start: 05-18-2024 End: 05-18-2025 take 1 tablet by mouth every six hours for pain ibuprofen 800 MG tablet Indications: Polyarthralgia Take 1 tablet (800 mg) by mouth every 6 (six) hours if needed for mild pain 90 tablet 3 05/18/2024 05/18/2025 Active levothyroxine sodium 0.05 mg oral tablet (3 sources) l-Thyroxine Start: 06-08-2024 End: 08-13-2024 take 1 tablet by mouth before mealtime levothyroxine (Synthroid, Levoxyl) 50 MCG tablet Indications: Adult hypothyroidism (CMS/HCC) TAKE 1 TABLET BY MOUTH IN THE MORNING BEFORE A MEAL 90 tablet 08/13/2024 Active meclizine hydrochloride 25 mg oral tablet (2 sources) Antiemetic Start: 05-18-2024 End: 05-18-2025 take 1 tablet by mouth three times daily as needed for dizziness meclizine (Antivert) 25 MG tablet Indications: Dizziness Take 1 tablet (25 mg) by mouth 3 (three) times a day as needed for dizziness 20 tablet 3 05/18/2024 05/18/2025 Active omeprazole 20 mg delayed release oral capsule (2 sources) Proton Pump Inhibitor Start: 11-25-2023 take 1 capsule by mouth once daily omeprazole (PriLOSEC) [address] capsule Indications: Gastro-esophageal reflux disease without esophagitis , Esophageal reflux Take 1 capsule (20 mg) by mouth Daily 90 capsule 3 11/25/2023 Active Problems Active Problems Problem Classification Problem Date Documented Date Episodic/Chronic Esophageal disorders (2 sources) Gastroesophageal reflux disease without esophagitis; Translations: [Gastro-esophageal reflux disease without esophagitis] Onset: 11-26-2023 11-26-2023 Chronic Other screening for suspected conditions (not mental disorders or infectious disease) (4 sources) Encounter for screening mammogram for malignant neoplasm of breast; Translations: [ENC SCR MAMMO MALIG NEOPLASM BREAST] Onset: 01-12-2023 Episodic Other upper respiratory disease (2 sources) Allergic rhinitis due to pollen; Translations: [Allergic rhinitis due to pollen] Onset: 11-26-2023 11-26-2023 Chronic Residual codes; unclassified (1 source) Family history of malignant neoplasm of breast; Translations: [FAMILY HX MALIG NEOPLASM OF BREAST] Onset: 01-20-2023 Episodic Thyroid disorders (3 sources) Hypothyroidism; Translations: [Hypothyroidism, unspecified] Onset: 11-26-2023 08-09-2024 Chronic Past or Other Problems Problem Classification Problem Date Documented Da te Episodic/Chronic Administrative/social admission (4 sources) Encounter for pre-employment examination; Translations: [ENCOUNTER FOR PRE-EMPLOYMENT EXAM] Onset: 03-26-2022 Episodic Results Test Name Value Interpretation Reference Range Facility ALL THYROXINE (T4) FREEon Free T4 [Mass/Vol] 0.97 ng/dL 0.76 - 1. 46 ng/dL [facility] MG MAMM SCREEN 3D JESS CADon 01-12-2023 MG MAMM SCREEN 3D JESS CAD Patient: YEIMY EDWARDS Exam Date: 01/12/2023 : 1985 Gender:F Ordering : DR LARRY DEL RIO M.D. Admission #: [id number] Family : Order #: [id number] CLICK HERE TO VIEW EXAM RADIOLOGY REPORT PROCEDURE: MAMMOGRAM SCREENING 3D BILATERAL CAD COMPARISON: None. INDICATIONS: Family history of malignant neoplasm of breast Calculator Name NCI Breast Cancer Risk Assessment Tool 5 Year Breast Cancer Risk 1.10% Lifetime Breast Cancer Risk 18.80% Personal Breast Cancer No Personal Ovarian Cancer No Treatments None Family Cancers Mother with breast cancer at age 50. LOCATION: [facility] BREAST COMPOSITION: Scattered areas fibroglandular density. [...] MD on 01/12/2023 at 10:40 Normal [facility] PAP [id number] 01-01-2023 Cytology report Cyto stain Doc (Cvx/Vag) Note Invalid Interpretation Code [facility] Comment on above: Result Comment: TEST S RESULT FLAG UNITS REF RANGE LAB Clinician Provided Cytology Information Source.............[employer] No. of containers..01 ThinPrep Vial DIAGNOSIS: 01 NEGATIVE FOR INTRAEPITHELIAL LESION OR MALIGNANCY. Specimen adequacy: 01 Satisfactory for evaluation. Endocervical and/or squamous metaplastic cells (endocervical component) are present. Performed by: Felix Moctezuma Telegraph Lineman (ASC) . 01 Note: Note 01 The Pap [...] <-Panic Low,>-Panic High,A-Abnormal,AA-Critical Abnormal Performed at: [address] [facility] [address] [place] [id number] Orin Acharya MD, Performed By: #### 3 [id number] #### [facility] [address] [place] [address] HPV 16+18+31+33+35+39+4 5+51+52+56+58+59+66 +68 DNA Probe+sig amp Ql (Cvx) Negative Invalid Interpretation Code Negative [facility] Comment on above: Result Comment: This nucleic acid amplification test detects fourteen high-risk HPV types (16,18,31,33,35,39,45,51,52,56,58,59,66,68) without differentiation. Performed at: [address] [id number] MD Patrizia Sr Performed at: =G [address] [id number] MD Patrizia Sr Performed By: #### 3 [id number] #### [facility] [address] [place] [id number] Coding Summary.on 12-31-2022 Coding Summary. CD:[id number] W w+PGhlYWQ+PL9UNPNzO79 uiTApzF6xB6JDQWdSDhyl PRTPJHfLWfQfhqFzVT6tu XNjZXJu IC8+NU2wQYYjQpiltECsv 7C4eMC1P90ahn0gIWpvsH A1JFObDdRynqhjg1qsuQo 6IDcuNmluOyBt ZLUkfI60TOG0yC47Fp91l LQwlRKkj4yhoBn9MvKgCF OyHCP9pEvcAEfxl4LqGKH uI82gyPRup8M3 KFVzkMhxrLSgNaAaqTK5j S6rIUuvcpoge3vpxfftCq m0bu54zSDkd5M9vYA8F4M lkwL8HYFvdWXv GldfiINVeM7bklfsd0ygi driBmIqEBBxHWx2HPo3LM DblMsmTqSqWG96IET1QTJ aqoEsJ3BoJEBy sPaiMyZ1t9X1Jf9AP9NVE yqkQ4MDYTCNMUhgkYN+PC 33er81V1LnQgdiRap1BSE xOBR4yGU5rQ8w WZVfQCrha8I8hCN7K4Wjq uUqkx4dw2bsYAKqYYzzC5 8qpVWht9U6NCCrqWB9UTM ucIlbJzIctN41 Oyc+QXLkzCgka2PvRbdeo 3ucz6yxzNb6ClztBZDovv JfwTnrTWP0h3IfDe0uPTO wlNV2oXG6qY4u ZbGaGoL9YJfjS930IwLsq JHaLcehZ15yO4QlnNP+PH JdHjm7ZLYxzMolJR3pS0I hZGRpbmctbGVm gTxbZJ3kHRWmvhcoGFDqu K5eRJAkH5o4JxCfJwR2VV lgR4GwNSLmszmxCa30wZ8 uYdAxFzN4WIfv O4BifqH5PKGxwODwHWkjZ JC7N06yz2L7RCOhVARiYY Z8zHI3xS7kbYxijcvwrVP mdDsgdmVydGlj CVwxZCjoM768FYOdaPypA kNvZGluZyBEYXRlOiAgMD QvMDUvMjAyMzwvdGQ+PHR eEWW6zEnqNVTu iCXfXXpxLk8xwZiokNmlM C2fJCUfyrsdNIUcfJ6dTE ZudSHruFprYD3cXUWxktw nt459VnAbCGG9 WPVwuTAnA2UmaD8jIpRgE ZNzHBQqE8VseVUcVQzwY8 18QKtqEgH2OLPwnuBkK0U sLWFsaWduOiB0 j5J3Ce8Xw3WrllefN0Ghs HJeLpEwAaghETc6Q1GbRk wvdHI+WN75LKQkQM71VUw 3KMM8yRcjAJjm XXFaP6ArdM9bLhJeERHhM GRkOyc+PHRhYmxlIHdpZH RoPScxMDAlJyBzdHlsZT0 rOr2qWIUqFMFe aHoidVUrXdQqo5auUQAqD KdiBP7mgQihT5DabXH4ZF Bkx0z9Jx94R67yH9NviIF +YTEqxNI8rLC9 bJ9yCcZsEqD8UEgqP074G pZqvFJvWsmaj2qfa6gctF w0SyE1BOMiapNeaDrjJUW 9o7FuZy25J37m IHdpZHRoPSIxNSUiIHZhb Luotq9ouJ2kBg0+PGNvbC C5qFF5mD5vHgWxPoV9APa mV961VpQclFLl Mdrfh5odc9gnyGr0JnWhJ DClguSlrSwpHJM3o5AjGt 70H2UqfWhyn9VmGlf9mr4 9yOUlf8Y9nRO9 X5TvTFRupjcxcDDnxJdrP P3hCGZcsofeLKIirF8uLV AgT5g1RuDuSsW7YXpqO9F qpiY1MXUdcKRk ZNOcyZMIjV2mgepqg9lrc hdoRtVxRZXqLTa6IIn9UF PxnIvcBqLoBBS2SyQ8BYD 0iPJcgX4coUnk ytnqmB6qTxo+OIC2lXFul AEMEX3cLlklpCA+PHRkIH Y1mPprZSjxHJQlvR3gXQN zH6l1SfYgAgI6 PWhaN3JxszF5RTRktQHxU QHdeZBUxB5dkfexf4evvy jrEjTpCANlLNt1VTc0JJQ saWduOiBsZWZ0 UaC6GIK2wMArjH4feFsti hgncY7wBpw+QmlydGggRG X9BBh3A0RjMnt7NBMeqUr kXF0rxASvDXku Jl0olXrgnUtnET6aXPNxr jzvb510MoViw5aqBABzmN AtWCczTAN6K13iv6P1WBV kDMJcGTD1kZO6 sU1vtJlavpnigSVdqPgwj zTloJwcUQqjLNqhE626CO VfwXadTkDdONy2T2VtIjz 8UXSpcZmfYZ0k wZKlZPfvHy9kbNrplHymI H7tPHXnmajsn911RqQoc1 fpCIDolXJxFHfeLGA5Q44 tc6F7XIIbCTIu CCB9yOF2nE5bmWcplipfd GVmdDsgdmVydGljYWwtYW wuV289LIAeeUqbFyJqhDr 5B3BjKzu1QXDx wEalCB5oaHUwJWlrRk0qg EgicAseDP3xXPVckqpxn4 56FxBsw1ezKCDigGWxKCa bGKR8U16qt9C2 TNJoTXHwGOD4uCK7qX9yy GlnbjogbGVmdDsgdmVydG xaAIrnFBrjJ554ZDNfcXl nPlBhdGllbnQg WHqoVMx9V5JiNwtljPZ+P D94GZIcDV83sIUfwZUuo6 nknXx9XsIjOGUkQMK1xDn qTQpce3VwKPVe N21utTClz1H9GDCftIvcl CYrUkKdpSV1bF2uXJpwtx jeb8clwcdzOluvu7pzbk8 6xD36W67bEBst ZHRoPSIzMCUiIHZhbGlnb q4sqT8nLo0+DSJkwZF5bD T2uO6bNIIoNrY4CSkfV06 9InRvcCIvPjxj s4hep6iyfTy2ObI5YODfx qKctScuBQO0g9GzCj74P2 9sIHdpZHRoPSIyMCUiIHZ ncNazpb9yqW2c Ii8+FCRjgBA1tHM1aE7rF lYnDlZ1OTqhI761IqLbtA FjVcbxS54xN0MijTR+PHR iBde1XEXebYbq FQ1ucOOsEPnbYa2tSFM4K wLgHhSnGLnbX9TmFDTnbi amucjyrAL4THHbZRZehZ2 2Ol8dlGcxOGIx nSEQxV6obdsex1qqvqoyY yLiMMBaZSt3PDl7AMZhwF rsQjZtGXG3AtG5XDN6cBR fuJ0hvXedjdnv tX4sZ8YmGQXbiygvBr32l N5mNcUjAvS9SNfbVns+S0 LBQM3RFDGDNB8DM9JZYE2 4C1DsBdh8ITVf nWzsDS5zyZRhUPuyVl5ax ZqnpQdrLR6fVULmhnvfIB LjtF5wXPPhnTJsbZwlHC3 kIWZitvgqw597 RfUbQLC2STKndMLgI9Hqn K0tSaJmERJxSCVrV3PmzL OfDIwnT157WBxvThH1OJX qwzSeQ8LfDSOs aNngObQ0j7U9Pl8sUB0sX F5dAPbwMM64IY76sQGtm5 D5dWD9U6UcIGHxoppwils ksWE2QPZqNPEb hU81tXDdPDuyMp4cp4F8j 534RKYqFSQqxS19Na4vnR ofSMAvaZWJhO4qvapqx6x vcjogIzAwMDAw QQh5LAe1VZAupPgxEoBuB VA1YaX6YKS0vFAibZ5khF aomcpdwD3dIun+MzkgWWV pcdU2G6LbKum1 SRJuaQqqIG4suZWtSDupT k3miDnueJaxLY7sSHLunu hbKVCyhT0qYIEygJSbqHz gVJ4pFFUxpdpr e523OrMeHTP8IXNukKMrR 2MdaU8yYdWuKRXrWARdB8 GsoENsPAwlQ816TSebTaR 8RUJwrtQtW9Cy YWCixZjgMfD9z6U4Cc1LX I3gcEX7S4CjYhd3YNVthI yfPA5qbYNxPWgqYe6tmZu zpOjiHD2mELAa ccugPGVewI2yPVDawCIwm JqaXU3mBDIpiysfh213Nu IuCGM8UFQzvJTkY3PprY9 yOiAjMDAwMDAw M6AlaHUjQCcwN486HXvaH iV3DFKkbfYvM0KrODEaeG lvFwK8t5H1Kh9URFTyMLW ubTKtTwY3L4Os PjwvdHI+GP23RKYiAB56j XYcwDLoq2ewrMo1VdEoUV GgXMM9eGulNLshz1IfPPM oD75weOStv3U3 XYJbzVypjBGnVyFscFG6r K5zBHtoaimrs0ibxvftSv hgc2eaod70yS39B60bTCt pZHRoPSIzMCUi HWTkyPpkia4cjL1wQd5+P NEoaYV6cIH5oK9hHfIwHa Y4APrzG677PmJovAEzMif fj9hfq2pifMw0 YwBsYUJiinYhfJffOZD0v 4UxMx04Q65dYMawEZMxXH AgADRrGFAlcIrwfk4taU1 wIi8+GJ8ca3ps de86rI75jRJ+GFByZCJ3b QwvIZklLUFxiN1aDOjpCg O1OPHkYnIkzY89wZOpSSm cQx3kwJwdqEtd WS1zIVZqpjbgm275AzCqs 5ouBJMxbRGaJQebNHS4J1 8qj4N8GJWzZVWfIMJ6qQE 7fZ4ivCeuvfas bGVmdDsgdmVydGljYWwtY UlpA704AKQvjQygWtMtyJ VxL8swueUKAS4fWkcibPI +EGNzWDL1yGcb OMtoIIFeuH3wYEJhG3b5C dQsKaY9IQaqC6EzpzS9TR AkmVHuAOXheGIXmE7ikep ic6hkfefwXfDf NBEuJYf0LZy2APXhvTbdX hXmBQS1YpN0MEC0pRGzuC 0bqPgpxmtbiA4iAqh+Rkl OOjwvdGQ+PHRk CGE0dAcaVPpoDXNqmN3gH JGeO1x2IcFwHdM6YMsqV2 EjksC9AFIwqHGvQNQdwFK KoO8rzaqeh2fo dpvdYmKbLUTyCOt0HJz7S KRnhRosUkMnKLL7EkO9JA X3cWGywV9tdAqrampieT5 wOyc+TVJOOjwv dGQ+MYWgPUP2jUzmXAtmG CEqrB1nPUZzO7c0GhPgSn B9GEdjR4WvscA8SEAxyRE qDGFzjFRUbA2s jbrww6ycoomlFuScHWDrA Lj5NEb2PNMldKuaEaLsHL A7WxV2QSQ7cJZpiI4xrAv ugpcanK5eTmx+ HPC3UUR4QA35PC47R5GzD jwvdGFibGU+PHRhYmxlIH dpZHRoPScxMDAlJyBzdHl kKS5uLn9jDFOq LWNvbGxh (more content not included)... Normal [facility] CBC AUTO DIFFon 12-30-2022 BASO # 0.0 103/ul Normal 0.0-0.1 [facility] Comment on above: Performed By: #### C BC #### [facility] [address] [place] [address] Dr. Josephine Dutta Basophils/100 WBC (Bld) 0.4 % Normal 0.2-2.0 [facility] Comment on above: Performed By: #### C BC #### [facility] [address] [place] [address] Dr. Josephine Dutta EO # 0.2 103/ul Normal 0.0-0.7 [facility] Comment on above: Performed By: #### C BC #### [facility] [address] [place] [address] Dr. Josephine Dutta Eosinophils/100 WBC (Bld) 3.2 % Normal 0.9-7.0 [facility] Comment on above: Performed By: #### C BC #### [facility] [address] [place] [address] Dr. Josephine Dutta Erythrocyte distribution width (RBC) [Ratio] 12.9 % Normal 11.0-15.0 [facility] Comment on above: Performed By: #### C BC #### [facility] [address] [place] [address] Dr. Josephine Dutta Hematocrit (Bld) [Volume fraction] 40.9 % Normal 36.0-48.0 [facility] Comment on above: Performed By: #### C BC #### [facility] [address] [place] [address] Dr. Josephine Dutta Hemoglobin (Bld) [Mass/Vol] 14.5 g/dL Normal 12.0-16.0 [facility] Comment on above: Performed By: #### C BC #### [facility] [address] [place] [address] Dr. Josephine Dutta IG # 0.03 10e3/ul Normal 0.00-0.03 [facility] Comment on above: Performed By: #### C BC #### [facility] [address] [place] [address] Dr. Josephine Dutta IG % 0.4 % Normal 0.0-0.5 [facility] Comment on above: Performed By: #### C BC #### [facility] [address] [place] [address] Dr. Josephine Dutta LYMPH # 2.1 103/ul Normal 1.2-3.8 [facility] Comment on above: Performed By: #### C BC #### [facility] [address] [place] [address] Dr. Josephine Dutta Lymphocytes/100 WBC (Bld) 29.1 % Normal 20.5-60.0 [facility] Comment on above: Performed By: #### C BC #### [facility] [address] [place] [address] Dr. Josephine Dutta MANUAL DIFF REQ NO Normal [facility] Comment on above: Performed By: #### C BC #### [facility] [address] [place] [address] Dr. Josephine Dutta MCH (RBC) [Entitic mass] 31.0 pg Normal 26.7-34.0 [facility] Comment on above: Performed By: #### C BC #### [facility] [address] [place] [address] Dr. Josephine Dutta MCHC (RBC) [Mass/Vol] 35.5 g/dL Critically high 29.9-35.2 [facility] Comment on above: Performed By: #### C BC #### [facility] [address] [place] [address] Dr. Josephine Dutta MCV (RBC) [Entitic vol] 87.6 fL Normal 81.0-99.0 [facility] Comment on above: Performed By: #### C BC #### [facility] [address] [place] [address] Dr. Josephine Dutta MONO # 0.7 103/ul Normal 0.3-0.8 [facility] Comment on above: Performed By: #### C BC #### [facility] [address] [place] [address] Dr. Josephine Dutta Monocytes/100 WBC (Bld) 9.3 % Normal 1.7-12.0 [facility] Comment on above: Performed By: #### C BC #### [facility] [address] [place] [address] Dr. Josephine Dutta NEUT # 4.1 103/ul Normal 1.4-6.5 [facility] Comment on above: Performed By: #### C BC #### [facility] [address] [place] [address] Dr. Josephine Dutta Neutrophils/100 WBC (Bld) 57.6 % Normal 43.0-75.0 [facility] Comment on above: Performed By: #### C BC #### [facility] [address] [place] [address] Dr. Josephine Dutta Platelet mean volume (Bld) [Entitic vol] 9.6 fL Normal 9.5-13.5 [facility] Comment on above: Performed By: #### C BC #### [facility] [address] [place] [address] Dr. Josephine Dutta PLT 211 103/ul Normal 150-450 [facility] Comment on above: Performed By: #### C BC #### [facility] [address] [address] [address] Josephine Dutta RBC 4.67 106/ul Normal 4.20-5.40 [facility] Comment on above: Performed By: #### C BC #### [facility] [address] [place] [address] Dr. Josephine Dutta WBC 7.1 103/ul Normal 4.0-11.0 [facility] Comment on above: Performed By: #### C BC #### [facility] [address] [place] [address] Dr. Josephine Dutta GLYCOHEMOGLOBIN A1Con 2022 ADA RECOMMENDATION SEE BELOW Normal [facility] Comment on above: Result Comment: ADA RECOMMENDED LIMIT 4.0 - 6.0 ADA THERAPEUTIC TARGET < 7.0 ACTION SUGGESTED > 7.0 Performed By: #### A 1C #### [facility] [address] [place] [address] Dr. Josephine Dutta Glucose [Mass/Vol] 77 mg/dL Normal [facility] Comment on above: Performed By: #### A 1C #### [facility] [address] [place] [address] Dr. Josephine Dutta HbA1c (Bld) [Mass fraction] 4.3 % Critically low 4.5-6.2 [facility] Comment on above: Performed By: #### A 1C #### [facility] [address] [place] [address] Dr. Josephine Dutta LIPID PROFILEon 12-30-2022 CHOL-HDL RATIO NORM SEE BELOW Normal [facility] Comment on above: Result Comment: 3.3 - 4.4 LOW RISK 4.4 - 7.1 AVERAGE RISK 7.1 - 11.0 MODERATE RISK >11.0 HIGH RISK Performed By: #### C MP, LIPID, TSH #### [facility] [address] [address] [address] Josephine Dutta Cholesterol [Mass/Vol] 176 mg/dL Normal <=200 [facility] Comment on above: Performed By: #### C MP, LIPID, TSH #### [facility] [address] [address] [address] Josephine Dutta Cholesterol in HDL [Mass/Vol] 50 mg/dL Normal 40-60 [facility] Comment on above: Performed By: #### C MP, LIPID, TSH #### [facility] [address] [address] [address] Josephine Dutta Cholesterol in LDL [Mass/Vol] 99.0 mg/dL Normal [facility] Comment on above: Performed By: #### C MP, LIPID, TSH #### [facility] [address] [place] [address] Dr. Josephine Dutta Cholesterol.total/C holesterol in HDL [Mass ratio] 3.5 {ratio} Normal [facility] Comment on above: Performed By: #### C MP, LIPID, TSH #### [facility] [address] [place] [address] Dr. Josephine Dutta HDL NORMAL > or = 60 mg/dl - LO W CARDIOVASCULAR RISK <40 mg/dl - HIGH CARDIOVASCULAR RISK Normal [facility] Comment on above: Performed By: #### C MP, LIPID, TSH #### [facility] [address] [address] [address] Josehpine Dutta LDL CALC NORMAL SEE BELOW Normal [facility] Comment on above: Result Comment: <100 mg/dl OPTIMAL 100 - 129 mg/dl NEAR OR ABOVE OPTIMAL 130 - 159 mg/dl BORDERLINE HIGH 160 - 189 mg/dl HIGH >190 mg/dl VERY HIGH Performed By: #### C MP, LIPID, TSH #### [facility] [address] [address] [address] Josephine Dutta Triglyceride [Mass/Vol] 135 mg/dL Normal <=150 [facility] Comment on above: Performed By: #### C MP, LIPID, TSH #### [facility] [address] [address] [address] Josephine Dutta VLDL CALC 27.0 mg/dL Normal [facility] Comment on above: Performed By: #### C MP, LIPID, TSH #### [facility] [address] [address] [address] Josephine Dutta PROF 14(COMP METB)on 023 Albumin [Mass/Vol] 4.1 g/dL Normal 3.4-5.0 [facility] Comment on above: Performed By: #### C MP, LIPID, TSH #### [facility] [address] [address] [address] Josephine Dutta Albumin/Globulin [Mass ratio] 1.2 {ratio} Normal [facility] Comment on above: Performed By: #### C MP, LIPID, TSH #### [facility] [address] [address] [address] Josephine Dutta ALP [Catalytic activity/Vol] 44 U/L Critically low 46-116 [facility] Comment on above: Performed By: #### C MP, LIPID, TSH #### [facility] [address] [address] [address] Josephine Dutta ALT [Catalytic activity/Vol] 34 U/L Normal 14-59 [facility] Comment on above: Performed By: #### C MP, LIPID, TSH #### [facility] [address] [address] [address] Josephine Dutta Anion gap [Moles/Vol] 13.6 mmol/L Normal [facility] Comment on above: Performed By: #### C MP, LIPID, TSH #### [facility] [address] [address] [address] Josephine Dutta AST [Catalytic activity/Vol] 24 U/L Normal 15-37 [facility] Comment on above: Performed By: #### C MP, LIPID, TSH #### [facility] [address] [address] [address] Josephine Dutta Bilirubin [Mass/Vol] 1.0 mg/dL Normal 0.2-1.0 [facility] Comment on above: Performed By: #### C MP, LIPID, TSH #### [facility] [address] [address] [address] Josephine Dutta Calcium [Mass/Vol] 9.4 mg/dL Normal 8.5-10.1 [facility] Comment on above: Performed By: #### C MP, LIPID, TSH #### [facility] [address] [place] [address] Dr. Josephine Dutta Chloride [Moles/Vol] 99 mmol/L Normal 98-107 [facility] Comment on above: Performed By: #### C MP, LIPID, TSH #### [facility] [address] [place] [address] Dr. Josephine Dutta CO2 [Moles/Vol] 27.5 mmol/L Normal 21.0-32.0 [facility] Comment on above: Performed By: #### C MP, LIPID, TSH #### [facility] [address] [place] [address] Dr. Josephine Dutta Creatinine [Mass/Vol] 0.66 mg/dL Normal 0.55-1.02 [facility] Comment on above: Performed By: #### C MP, LIPID, TSH #### [facility] [address] [place] [address] Dr. Josephine Dutta EGFR-AF [place] >60 Normal >=60 [facility] Comment on above: Performed By: #### C MP, LIPID, TSH #### [facility] [address] [place] [address] Dr. Josephine Dutta EGFR-NON AF [place] >60 Normal >=60 [facility] Comment on above: Performed By: #### C MP, LIPID, TSH #### [facility] [address] [place] [address] Dr. Josephine Dutta Globulin (S) [Mass/Vol] 3.3 g/dL Normal [facility] Comment on above: Performed By: #### C MP, LIPID, TSH #### [facility] [address] [place] [address] Dr. Josephine Dutta Glucose [Mass/Vol] 85 mg/dL Normal 74-106 [facility] Comment on above: Performed By: #### C MP, LIPID, TSH #### [facility] [address] [place] [address] Dr. Josephine Dutta Potassium [Moles/Vol] 4.1 mmol/L Normal 3.5-5.1 [facility] Comment on above: Performed By: #### C MP, LIPID, TSH #### [facility] [address] [place] [address] Dr. Josephine Dutta Protein [Mass/Vol] 7.4 g/dL Normal 6.4-8.2 [facility] Comment on above: Performed By: #### C MP, LIPID, TSH #### [facility] [address] [place] [address] Dr. Josephine Dutta Sodium [Moles/Vol] 136 mmol/L Normal 136-145 [facility] Comment on above: Performed By: #### C MP, LIPID, TSH #### [facility] [address] [place] [address] Dr. Josephine Dutta Urea nitrogen [Mass/Vol] 12.0 mg/dL Normal 7.0-18.0 [facility] Comment on above: Performed By: #### C MP, LIPID, TSH #### [facility] [address] [place] [address] Dr. Josephine Dutat Urea nitrogen/Creatinine [Mass ratio] 18.2 mg/mg Normal [facility] Comment on above: Performed By: #### C MP, LIPID, TSH #### [facility] [address] [place] [address] Dr. Josephine Dutta TSHon 12-30-2022 TSH 5.052 uIU/mL Critically high 0.358-3.740 [facility] Comment on above: Performed By: #### C MP, LIPID, TSH #### [facility] [address] [place] [address] Dr. Josephine Dutta PAP [id number] 12-24-2022 Collection Technique BRUSH-SPATULA Normal [facility] Comment on above: Performed By: #### 3 [id number] #### [facility] [address] [place] [address] Gynecological Body Site ENDOCERVIX Normal [facility] Comment on above: Performed By: #### 3 [id number] #### [facility] [address] [place] [address] Previous Cytology Negative Normal [facility] Comment on above: Performed By: #### 3 [id number] #### [facility] [address] [place] [address] Previous Treatment NONE Normal [facility] Comment on above: Performed By: #### 3 [id number] #### [facility] [address] [place] [address] Physician Orderon 12-24-2022 Physician Order [id number] Normal [facility] QUANTIFERON TB GOLD PLUSon 0 03-28-2022 QuantiFERON Criteria Comment Normal [facility] Comment on above: Result Comment: The QuantiFERON-TB Gold Plus result is determined by subtracting the Nil value from either TB antigen (Ag) tube. The mitogen tube serves as a control for the test. Performed By: #### Q NTTB #### [facility] [address] [place] [address] Dr. Josephine Dutta QuantiFERON Incubation Incubation performed. Normal [facility] Comment on above: Performed By: #### Q NTTB #### [facility] [address] [place] [address] Dr. Josephine Dutta QuantiFERON Mitogen Value >10.00 [facility] Comment on above: Performed By: #### Q NTTB #### [facility] [address] [place] [address] Dr. Josephine Dutta QuantiFERON Nil Value 0.00 IU/mL [facility] Comment on above: Performed By: #### Q NTTB #### [facility] [address] [place] [address] Dr. Josephine Dutta QuantiFERON TB1 Ag Value 0.00 IU/mL [facility] Comment on above: Performed By: #### Q NTTB #### [facility] [address] [place] [address] Dr. Josephine Dutta QuantiFERON TB2 Ag Value 0.01 IU/mL Normal [facility] Comment on above: Performed By: #### Q NTTB #### [facility] [address] [place] [address] Dr. Josephine Dutta QuantiFERON-TB Gold Plus Negative Normal Negative [facility] Comment on above: Result Comment: Chem iluminescence immunoassay methodology Performed By: #### Q NTTB #### [facility] [address] [place] [address] Dr. Josephine Dutta HEPATITIS B SURFACE ANTIBODY , QUANTon 03-27-2022 Hepatitis B Surf AB Quant >1000.0 Normal Immunity>9.9 [facility] Comment on above: Result Comment: Stat us of Immunity Anti-HBs Level Inconsistent with Immunity 0.0 - 9.9 Consistent with Immunity >9.9 Performed By: #### H EPBSRF #### [facility] [address] [place] [address] Dr. Josephine Dutta MMR IMMUNITYon 03-27-2022 Mumps Abs, IgG 94.8 AU/mL Normal Immune >10.9 [facility] Comment on above: Result Comment: Nega tive <9.0 Equivocal 9.0 - 10.9 Positive >10.9 A positive result generally indicates past exposure to Mumps virus or previous vaccination. Performed By: #### M MRIMMU #### [facility] [address] [place] [address] Dr. Josephine Dutta Rubella Antibodies, IgG 2.04 index Normal Immune >0.99 [facility] Comment on above: Result Comment: Non- immune <0.90 Equivocal 0.90 - 0.99 Immune >0.99 Performed By: #### M MRIMMU #### [facility] [address] [place] [address] Dr. Josephine Dutta Rubeola Ab, IgG >300.0 Normal Immune >16.4 [facility] Comment on above: Result Comment: Nega tive <13.5 Equivocal 13.5 - 16.4 Positive >16.4 Presence of antibodies to Rubeola is presumptive evidence of immunity except when acute infection is suspected. Performed By: #### M MRIMMU #### [facility] [address] [place], [place] [address] Dr. Josephine Dutta VARICELLA IGG ABon 2 Varicella Zoster IgG 964 index Normal Immune >165 [facility] Comment on above: Result Comment: Nega tive <135 Equivocal 135 - 165 Positive >165 A positive result generally indicates exposure to the pathogen or administration of specific immunoglobulins, but it is not indication of active infection or stage of disease. Performed By: #### V ARCEL #### [facility] [address] [place] [address] [address] Josephine Dutta Encounters Encounter Date Encounter Type Care Provider Facility Start: 09-07-2024 End: 09-07-2024 Clinisync Result Encounter Laurent Fuentes MD Work Phone: [facility] Unsolicited Start: 09-07-2024 End: 09-07-2024 Clinisync Result Encounter Laurent Fuentes MD Work Phone: [facility] Unsolicited Start: 08-09-2024 End: 08-13-2024 Refill Laurent Fuentes MD Work Phone: [facility] Comment on above: Adult hypothyroidism (CMS/HCC) Start: 05-18-2024 End: 05-18-2024 ambulatory LAURENT FUENTES Not Available Start: 01-12-2023 End: 01-13-[address] LARRY DEL RIO Facility:[facility] Start: 01-03-2023 Encounter for genera l adult medical examination without abnormal findings DR NYDIA INGRAM [facility] Start: 12-30-2022 End: 12-31-[address] NYDIA INGRAM Facility:[facility] Start: 12-30-2022 End: 12-31-2022 Encounter for general adult medical examination without abnormal findings DR NYDIA INGRAM Facility: Start: 12-24-2022 End: 12-25-2022 ambulatory Abby Patterson Facility:[facility] Start: 12-24-2022 End: 12-24-2022 Lab Drop off Abby Patterson [facility] Start: 07-24-2022 End: 07-25-[address] MOHAMUD VAUGHAN . Facility:[facility] Start: 03-26-2022 End: 03-27-2022 ambulatory ANASTACIO BARRAGAN Facility: Procedures Date Procedure Procedure Detail Performing Clinician Start: 09-07-2024 ALL THYROXINE (T4) FREE Laurent Fuentes MD Work Phone: Start: 01-22-2024 Mammography Laurent khan MD Work Phone: Plan of Treatment Date Care Activity Detail Author Start: 01-21-2025 Screening for malign ant neoplasm of breast Mammogram [facility] Start: 05-29-2024 Influenza vaccination Influenza Vacc ine (#1) [facility] Start: 2013 Screening for malign ant neoplasm of cervix [facility] Start: 01-11-2004 Screening for malign ant neoplasm of cervix Pap Smear [facility] Payers Date Payer Category Payer [facility] BCBS [id number] 2022 Unknown [id number] 1983 Unknown [id number] 1983 Unknown [id number] 1983 Unknown [id number] [id number] 1983 Unknown [id number] 1959 Self-pay Unknown [id number] Unknown [id number] [id number] Social History Date Type Detail Facility Tobacco smoking status [facility] [place] [facility] Start: 05-18-2024 Sex Assigned At Female F [facility] Start: 05-18-2024 [facility] Start: 05-18-2024 Tobacco use and exposure Smokeless tobacco non-user [facility] Start: 05-18-2024 Alcoholic beverage intake Current drinker of alcohol (finding) [facility] Start: 05-18-2024 History of Social function [facility] Start: 1985 Sex assigned at Female [facility] Start: 05-17-2024 Gender identity Identifies as female gender (finding) [facility] Evaluation + Plan note 12-24-2022 Note Date & Type Note Facility 12-24-2022 [id number] Evaluation note Note Date & Type Note Facility Evaluation note Diagnosis Adult hypothyroidism (CMS/HCC) Unspecified hypothyroidism documented in this encounter [facility] Hospital course Narrative Note Date & Type Note Facility Hospital course Narrative No data available for this section [facility] Hospital Discharge instructions Note Date & Type Note Facility Hospital Discharge instructions No data available for this section [facility] Progress note Note Date & Type Note Facility Progress note No data available for this section [facility] Summary Purpose Family History No Family History Records FoundNo Family History Records FoundNo Family History Records Found Advance Directives No Advanced Directives Records FoundNo Advanced Directives Records FoundNo Advanced Directives Records Found Additional Source Comments Patient Care team informatio n (unrecognized section and content) Prepress Supervisor Relationship Specialty Start Date End Date Laurent Fuentes MD [address] [place] [address] PCP - General Family Medicine 05/18/24 Prepress Supervisor Relationship Specialty Start Date End Date Laurent Fuentes MD [address] [place] [address] PCP - General Family Medicine 05/18/24 INFORMATION SOURCE (unrecogn ized section and content) DATE CREATED AUTHOR 01/02/2023 [facility] DATE CREATED AUTHOR AUTHOR'S ORGANIZ ATION 01/21/2023 [facility] DATE CREATED AUTHOR AUTHOR'S ORGANIZ ATION 05/20/2024 [facility] EPIC Reason for Visit (unrecogniz ed section and content) Reason Comments Med Refill FOR RECORDS PERTAINING TO PATIENTS WHO ARE [...] BE BASED ON THE PRIMARY CLINICAL RECORDS. [employer] provides no warranty or guarantee of the accuracy or completeness of information in this document.
== END 2024-09-07 09:48 | disposition home or self-care (01) ==
LOC: LAB 09-12 09:48
PROVIDERS: PCP Family Medicine; Visit Provider Family Medicine
DX: E03.9 Hypothyroidism, unspecified (principal)
CPT/HCPCS: 36415; 84439; 84443

== ENCOUNTER 2024-12-16 06:54 | Outpatient (OUT) | payer BC, SELFPAY ==
--- OUTSIDE RECORDS SUMMARY | 2024-12-16 06:56 | XMS_ITS | CCD ---
Author Organization [facility] Care Team Providers Care Ordnance Officer Name Role Phone Denice Pedro Primary Care Physician Abby Patterson Attending Unavailable Abby Patterson Admitting Unavailable QUANG, DR JUAREZ Admitting Unavailable QUANG, DR JUAREZ Attending Unavailable NADERER, DR NYDIA Valentine Primary Care Unavailable QUANG, DR JURAEZ Consulting Unavailable WEST, DR TROY Pineda Consulting Unavailable LAUREL, ANASTACIO Admitting Unavailable LAUREL, ANASTACIO Attending Unavailable LAUREL, ANASTACIO Consulting Unavailable LAEXUS ., DR MALLORY Admitting Unavailable HOY ., DR MALLORY Attending Unavailable HOY ., DR MALLORY Consulting Unavailable JUAN JOSE, DR NYDIA Valentine Admitting Unavailable JUAN JOSE, DR NYDIA Valentine Attending Unavailable JUAN JOSE, DR NYDIA Valentine Primary Care Unavailable JUAN JOSE, DR NYDIA Valentine Consulting Unavailable Laurent Fuentes MD Primary Care Provider LAURENT FUENTES Attending Unavailable LAURENT FUENTES Attending Unavailable Allergies Allergy Classification Reported Allergen(s) Allergy Type Date of Onset Reaction(s) Facility (7 sources) Erythromycin; Translations: [erythromycin] Drug Allergy 05-18-2024 [facility] (1 source) Erythromycin Drug Allergy 07-24-[address] [facility] Repository Medications Current Medications Medication Drug Class(es) Dates Sig (Normalized) Sig (Original) cetirizine hydrochloride 10 mg oral tablet (7 sources) Histamine-1 Receptor Antagonist Start: 11-26-2023 End: 11-08-2024 take 1 tablet by mouth once daily cetirizine (ZyrTEC) 10 MG tablet Indications: Seasonal allergic rhinitis due to pollen TAKE 1 TABLET (10 MG) BY MOUTH DAILY. 90 tablet 3 11/08/2024 Active ethinyl estradiol 0.02 mg / levonorgestrel 0.1 mg oral tablet (5 sources) Progestin, Estrogen, Progestin-containi ng Intrauterine Device levonorgestrel-ethi nyl estradiol (Lessina) 0.1-20 MG-MCG tablet 1 (one) time each day at the same time Active ibuprofen 800 mg oral tablet (5 sources) Nonsteroidal Anti-inflammatory Drug Start: 05-18-2024 End: 05-18-2025 take 1 tablet by mouth every six hours for pain ibuprofen 800 MG tablet Indications: Polyarthralgia Take 1 tablet (800 mg) by mouth every 6 (six) hours if needed for mild pain 90 tablet 3 05/18/2024 05/18/2025 Active levothyroxine sodium 0.05 mg oral tablet (8 sources) l-Thyroxine Start: 09-23-2024 take 1 tablet by mouth before mealtime levothyroxine (Synthroid, Levoxyl) 50 MCG tablet Indications: Adult hypothyroidism (CMS/HCC) TAKE 1 TABLET BY MOUTH IN THE MORNING BEFORE A MEAL 90 tablet 3 09/23/2024 Active Start: 06-08-2024 End: 09-23-2024 take 1 tablet by mouth before mealtime levothyroxine (Synthroid, Levoxyl) 50 MCG tablet Indications: Adult hypothyroidism (CMS/HCC) TAKE 1 TABLET BY MOUTH IN THE MORNING BEFORE A MEAL 90 tablet 08/13/2024 09/23/2024 Discontinued Start: 11-25-2023 take 1 tablet by jewell th once daily levothyroxine (Synthroid, Levoxyl) 25 MCG tablet Indications: Gastro-esophageal reflux disease without esophagitis , Esophageal reflux Take 1 tablet (25 mcg) by mouth Daily 90 tablet 3 11/25/2023 Active meclizine hydrochloride 25 mg oral tablet (6 sources) Antiemetic Start: 05-18-2024 End: 05-18-2025 take 1 tablet by mouth three times daily as needed for dizziness meclizine (Antivert) 25 MG tablet Indications: Dizziness Take 1 tablet (25 mg) by mouth 3 (three) times a day as needed for dizziness 20 tablet 3 05/18/2024 05/18/2025 Active Start: 09-10-2023 take 1 tablet by jewell th every eight hours as needed for dizziness meclizine (Antivert) 25 MG tablet Indications: Dizziness TAKE 1 TABLET BY MOUTH EVERY 8 HOURS NEEDED FOR DIZZINESS 20 tablet 09/10/2023 Active omeprazole 20 mg delayed release oral capsule (7 sources) Proton Pump Inhibitor Start: 09-23-2024 take 1 capsule by mouth once daily omeprazole (PriLOSEC) [address] capsule Indications: Gastro-esophageal reflux disease without esophagitis , Esophageal reflux Take 1 capsule (20 mg) by mouth Daily 90 capsule 3 09/23/2024 Active Start: 11-25-2023 End: 09-23-2024 take 1 capsule by mouth once daily omeprazole (PriLOSEC) [address] capsule Indications: Gastro-esophageal reflux disease without esophagitis , Esophageal reflux Take 1 capsule (20 mg) by mouth Daily 90 capsule 3 11/25/2023 09/23/2024 Discontinued (Reorder) Problems Active Problems Problem Classification Problem Date Documented Date Episodic/Chronic Esophageal disorders (8 sources) Gastroesophageal reflux disease without esophagitis; Translations: [Gastro-esophageal reflux disease without esophagitis] Onset: 11-26-2023 11-26-2023 Chronic Other screening for suspected conditions (not mental disorders or infectious disease) (4 sources) Encounter for screening mammogram for malignant neoplasm of breast; Translations: [ENC SCR MAMMO MALIG NEOPLASM BREAST] Onset: 01-12-2023 Episodic Other upper respiratory disease (7 sources) Allergic rhinitis due to pollen; Translations: [Allergic rhinitis due to pollen] Onset: 11-26-2023 11-26-2023 Chronic Residual codes; unclassified (1 source) Family history of malignant neoplasm of breast; Translations: [FAMILY HX MALIG NEOPLASM OF BREAST] Onset: 01-20-2023 Episodic Thyroid disorders (8 sources) Hypothyroidism; Translations: [Hypothyroidism, unspecified] Onset: 11-26-2023 08-09-2024 Chronic Past or Other Problems Problem Classification Problem Date Documented Da te Episodic/Chronic Administrative/social admission (4 sources) Encounter for pre-employment examination; Translations: [ENCOUNTER FOR PRE-EMPLOYMENT EXAM] Onset: 03-26-2022 Episodic Results Test Name Value Interpretation Reference Range Facility ALL THYROXINE (T4) FREEon Free T4 [Mass/Vol] 0.97 ng/dL 0.76 - 1. 46 ng/dL [facility] ALL CBC WITH AUTO DIFFon BASOPHILS ABSOLUTE AUTO 0.0 [facility] Basophils/100 WBC (Bld) 0.3 % 0.2 - 2.0 % [facility] Eosinophils/100 WBC (Bld) 3.0 % 0.9 - 7.0 % [facility] Erythrocyte distribution width (RBC) [Ratio] 13.2 % 11.0 - 15.0 % [facility] Hematocrit (Bld) [Volume fraction] 37.3 % 36.0 - 48.0 % [facility] Hemoglobin (Bld) [Mass/Vol] 13.1 g/dL 12.0 - 16.0 g/dL [facility] IMMATURE GRANULOCYTES ABS AUTO 0.02 [facility] Immature granulocytes/100 WBC (Bld) 0.3 % 0.0 - 0.5 % [facility] LYMPHOCYTES ABSOLUTE AUTO 1.9 [facility] Lymphocytes/100 WBC (Bld) 28.5 % 20.5 - 60.0 % [facility] MCH (RBC) [Entitic mass] 31.0 pg 26.7 - 34.0 pg [facility] MCHC (RBC) [Mass/Vol] 35.1 g/dL 29.9 - 35.2 g/dL [facility] MCV (RBC) [Entitic vol] 88.4 fL 81.0 - 99.0 fL [facility] MONOCYTES ABSOLUTE AUTO 0.5 [facility] Monocytes/100 WBC (Bld) 7.8 % 1.7 - 12.0 % [facility] NEUTROPHILS ABSOLUTE AUTO 4.1 [facility] Neutrophils/100 WBC (Bld) 60.1 % 43.0 - 75.0 % [facility] Platelet mean volume (Bld) [Entitic vol] 10.2 fL 9.5 - 13.5 fL [facility] # 0.2 [facility]H PLT [address] [facility] RBC 4.22 [facility] WBC 6.8 [facility] MG MAMM SCREEN 3D JESS CADon 01-12-2023 MG MAMM SCREEN 3D JESS CAD Patient: YEIMY EDWARDS Exam Date: 01/12/2023 : 1985 Gender:F Ordering : DR LARRY DEL RIO M.D. Admission #: [id number] Family : Order #: [id number] CLICK HERE TO VIEW EXAM RADIOLOGY REPORT PROCEDURE: MAMMOGRAM SCREENING 3D BILATERAL CAD COMPARISON: None. INDICATIONS: Family history of malignant neoplasm of breast Calculator Name NCI Breast Cancer Risk Assessment Tool 5 Year Breast Cancer Risk 1.10% Lifetime Breast Cancer Risk 18.80% Personal Breast Cancer No Personal Ovarian Cancer No Treatments None Family Cancers Mother with breast cancer at age 50. LOCATION: [facility] BREAST COMPOSITION: Scattered areas fibroglandular density. [...] MD on 01/12/2023 at 10:[address] [facility] PAP [id number] 01-01-2023 Cytology report Cyto stain Doc (Cvx/Vag) Note Invalid Interpretation Code [facility] Comment on above: Result Comment: TEST S RESULT FLAG UNITS REF RANGE LAB Clinician Provided Cytology Information Source.............[employer] No. of containers..01 ThinPrep Vial DIAGNOSIS: 01 NEGATIVE FOR INTRAEPITHELIAL LESION OR MALIGNANCY. Specimen adequacy: 01 Satisfactory for evaluation. Endocervical and/or squamous metaplastic cells (endocervical component) are present. Performed by: Felix Moctezuma Ekg Monitor (ASCP) . 01 Note: Note 01 The [...] <-Panic Low,>-Panic High,A-Abnormal,AA-Critical Abnormal Performed at: [address] [id number] Orin Acharya MD, Performed By: #### 3 [id number] #### [facility] [address] [place] [address] HPV 16+18+31+33+35+39+4 5+51+52+56+58+59+66 +68 DNA Probe+sig amp Ql (Cvx) Negative Invalid Interpretation Code Negative [facility] Comment on above: Result Comment: This nucleic acid amplification test detects fourteen high-risk HPV types (16,18,31,33,35,39,45,51,52,56,58,59,66,68) without differentiation. Performed at: [address] [id number] MD Patrizia Sr Performed at: =G [address] [id number] MD Patrizia Sr Performed By: #### 3 [id number] #### [facility] [address] [place] [address] Coding Summary.on 12-31-2022 Coding Summary. CD:[id number] W w+PGhlYWQ+UI1JKPRbW66 duSIhfW6uK0NQJZsBWnqm LSOBNYuWAfFgzjPgNU9ws XNjZXJu IC8+QB3jRGGgPepknGTfu 2X7gOL1Z55ump1kCXtvcK K0VLGnWuSehksqf3bcrCa 6IDcuNmluOyBt QLAfsJ18EFA7cR15Ob18x EBowBQps1awbRs8KrQfDP TiEEU5bUovBMqgl5BdCTH kZ23hiZRfn3D1 ZMWoiQcxlMEsZzSuhOT3e Q1nGHvsvlfkf6thyzykQh g3jr31oFWsv3X5zEG9H1D csaF9APFioDVu WgswxPFZfB1moocig0tdp xagHoFvVEFdKQn7QBt3LU QkrMrzKjQgFM20UGD9YRV hvpQfR5QcCCNg jAksNwZ9i9N8Dp3GP7DLT zxoE6LESPBCCFdsdHO+PC 09ku52Y8UvMjfwIca6LAL bUHJ1mZF1iF1k FLBeYFlst7E1aOU4P9Icl aGbkz7eb9rjIAOvPOyyC6 3otUIxg5Z5POZpgFW1GNA htMdeQcDmjJ91 Oyc+QJKaiRcvy8HcPlelc 3csc5hkeYh8VxsbMHWbpn LqsPocTWG1f8XjAx0bAHI gcCP7zFV9dU5v ElTjLzZ7IRgeB383QpFrc QYuXgmeP55dS4PzbTU+PH NzZob0DJDxaCkvCA8xM7E hZGRpbmctbGVm fSusGE0oHDRdzkdsBKBli W4dPORqN2v5VgPtZnQ4EL fgD5ZcKIMpbbvwCk58wD4 kRtUmRfF2FEci C9WuzvE3HKBnwLBvSIdjV JF0N93ge6K7WZBrYZVvHF S5dJI7oV3jgTrfmscjlVW mdDsgdmVydGlj CPodWInsL866YORnyKvjH kNvZGluZyBEYXRlOiAgMD QvMDUvMjAyMzwvdGQ+PHR fFWK6sFqvWNYq aKNpVQwjZi9srHtcqAkuH Z6uLTIjogwgCICqwY9wBH WizQXjkErdYC3yNLHtklt ca256ZnKdVDV8 VPOmrONaP0HmvM4rFcHhS YFtDKXqR7VxsTGcFUywE8 69PXarVeH2DQUcymFvI8S sLWFsaWduOiB0 k8R3Bq5Nt0BoxyiaC2Nya OCmNrDfCzypJUq5S0YzZz wvdHI+IZ49HJBwGS44DXo 4AJQ5cVbrKXcm CWKsM5LkxY7mDzDyOSXjW GRkOyc+PHRhYmxlIHdpZH RoPScxMDAlJyBzdHlsZT0 yKb9eHCVcLXRy qSmbjUTbNwJgn1tmTRKsE JzwDJ3cmZxlF7MawLR5KF Yjs4y0Pp07M21gI2NlxPX +VTUdhRT0bFQ9 zW4aRlPbBnK8ZIoxQ585F iAqmMSzOoonz5jgu8tedX j4BnI4ZZDmzoMipGukPVT 5j2GlVl37Q60r IHdpZHRoPSIxNSUiIHZhb Luapx8esB1cNh0+PGNvbC Q5pUN2xE5mXzTcViQ0MUc dA590CbYjjDGd Zmwbn1uom1yswRe9PxWfC BAflmTpmXjnWAU3o1EtAo 98B4KvjZsig9OkEaz0yk6 6yMBsi5G3gWS4 J8DuKDGjjfubzPNboNfbA D2vCIBczyahQNVssW5fSO WjD6e8GvYoGiO7GAenD0K kngK1EGLsjGWj WWAswIMThZ1cmpgnb1tgu uspDkUzVZQvHDg8BWz1NT AfuEdjMsGkRNC8GzQ9RWI 6xKOhgU2plCdj wgedwH0vJun+YFH7iBNmf ZWFSR0iAiiarCY+PHRkIH T7iFigJVbjKDEabI5aXZG dV4a7DfMbWaD0 XPovW9OtymZ6MMOpdUUdG FKwqJETtP9crucfn0negz cwBeUzZRJgIPh4RFn1PGO saWduOiBsZWZ0 EnW5QRU8hVNzlN0yzLzdv betlS3vFsj+QmlydGggRG P8PZa7N6SiCif1EMFzhSg dSP5xnLTdAPbu Oh6xzVbecXbjRY2wEZRbf kqfa849TzUrv0vtMBVtbH KfKDijXBM2Y89np4H9ELW uTEGsVBD6oXI9 aS8olJamtmdylVOacTwqw uVhpCulRHekBAcyS605GF RrhUtpXqPwDCz1A3AoJns 3AKRxyWyhRL8o sHPyHTkiAd2neShyjJarM C5aIBPmpnspc478WoAfw5 ujEGPrbJXiBDkjHZD3P43 sh5P5HIBhQONt BMF0cKZ1fK1ldYfadvlhy GVmdDsgdmVydGljYWwtYW gjK510OLSewCiqHiZklNj 6O6BzXgl1DQXn qNvuXQ9lzGVdDAegFe4qe OjudPuvYB1cBGXxyetil7 92NdHvn4hoWYKysUOgXSg mFNN7E80jk2P3 GGWoAIRlKWY4kKH1lW9do GlnbjogbGVmdDsgdmVydG fgGMfyEEieC456BFAnxYo nPlBhdGllbnQg DKpoRWe7T7WwPxtcwLO+P M87SZPuDP48wBUxsAXoy0 wppRr8QjQgFNOwLEU4fCp nAChyv1IkMVGa C92mjJJnr8B1LCPibQtro XPrBxYhjRP9wH0uBVgbht dar1uhnlrxIbdxw1fiev6 3iH54U01kDCdh ZHRoPSIzMCUiIHZhbGlnb t7zaM0cVz9+RIUcaAA8jM N4yH5sATSuXpQ1ZMkdM21 9InRvcCIvPjxj w8iou2rpcGs8HdO4BWRhe uPhuMvjGSJ4a0PdUl74F0 9sIHdpZHRoPSIyMCUiIHZ cqIknec6srG0f Ii8+JTPrhTV2cGS5dQ5sG cKlItE3LVglL394DjUwfD IqOokrT77xE3KfvQE+PHR tVku5IHZlbMwk SH9ncBNhAStbFn8wBVJ4B jOtNsNxUJnjH0GyEBIrwu kacibycNR4EPBjAJWgwA8 6Kp0mfKhgUFBd zMQPaY3gadqqa0pprnxjA rFmHMBiWVh8LQa6XEBivH xeDvCrPTH9OoX8VTE9lYX gbH8kzHzhvjya vH7gT6GcOMBmrpwhEq54b A0aBbUtAgJ5YYqgZuy+S0 KTFC9JOTBXRN0NM2QNFN9 8U4BwUjp9KFPl oZqqPP8sgDKqINosCv3ly YlfqZksWX1iXLWdydpfIE PsbI6wUIKluSAflCpuFN5 xFKMczvrmw196 IxMqAYR0LMJmqXNlN7Nkc R8oOqYsXXJkYSEeF0LzrA QjWIarI925JKvtAvG9NYN vqvAqX5HdGZYb zSmzVzF2k8U1Cb5dRW4bS B5lISgfGA63VU69bNGmi3 E7yTT2L6IdAUGtdwlrkum leKP8LODqUBWp iP46xMVjQCqaGl7ex3Y6c 366VBVkMZTlgF78Ns1awD xuDLHkxCTPkK8nivxkm4r vcjogIzAwMDAw CUb8DKg6FTDheLntMeUxO WW1TcZ3NKL7oXBiyX7duW bkyogqzH3uZxw+MzkgWWV achA0J6FxTaw5 BKPwrPyoOF3vfSFfMVofZ q6dyUtwnTmeLS7qEPIydz vpWOOfzA0wPAXheAOtkRy qXP6tCYDpqtaw q479WlVcKON5YUDohCUxS 5JttO3tHdDzHDRxUQZsP6 BavCGkNQmzN538HRlnUeQ 9RKKvrhRwC0Ut FYCsgPizDwJ4k7O1Jw5CL V2caXX1K2OsDwe3UUAfrU toGM5tfXQdFIhnKx2fwVm seKleBP9yYBTa ulijMJLluT1gZJEniKCqg UzuVC8uXYVrigyic383Vu HkBEF4JAQqsDPcS3AqwY0 yOiAjMDAwMDAw Q8RvaURsPOroB516WNjmM kE2OYNpjwYdR4LwGFFjkE ojRnK8v1E3Sq2BDDEvOLE dcZSkTrW1Q1Eh PjwvdHI+UM19UPXtEU07j BEekHXeb1nosLk9BjBkYP UbQCM8hReaFGdti3SqRPF tF62exLTzf7Y4 YZGzpMlmxWDqMbKapBO8t O8dOMfyjaqeh5sxqfulNu mgj2gtqs87xS92Z19lBPq pZHRoPSIzMCUi XXUucEmwfm4xfS6kWp2+P XPswAM7cVI2xK7qQeDlPr J3UBzqO359LjEkqHWqZmo fs3ght8ewwSq5 SbMzPTPmezCnbJfcEWV4h 6GsVe05A60dMUsaZQRiPY TvGUFeKQLczUmlcp9bfR7 wIi8+PK5ba4sv kq40tA21tFH+FASlILK2n YrqODsgHIQyzL6kYBnuBh E4JKHgRwWerE32rLPoKWo nGi7jyMqjrKdj XG2hRSOvgojca958SxQye 4aeCDHdtMBzVDoaYLC7Q8 3rm3P1QTLjSCDvYYF0dLH 3qK7zhMqelpvn bGVmdDsgdmVydGljYWwtY WamP099TALzbKpdWyPfpB HmA1dlngEZNE3iBkrfvQX +YQDhTVF0hXnb BVhfMSLcuH9aTOBbC4h9L eRaUoE3AVmcF5FproU1EN SyvWYkBHXnmAGKpI1dlle fq6cwcuwmLoTc YUHzZKu5NFb4QNVreMgpX xUdDTO1RhO6AUQ7vEFplF 8mmFdoeuwlbH9jLxy+Rkl OOjwvdGQ+PHRk RVB9fUysZNqyYRBrjU3jU SBkP1j9TpTtNaX9OVcyO8 UtbjO8WMXtyWGnYLWdoED FuJ8invqhg2ip fauxDjYuXCWdQJm1BNq8I XCcvKmoCiRgWOW5MaD9TE J9bFQrzN3xoTmgxcqkgI1 wOyc+TVJOOjwv dGQ+EWJtDZM4dLkkHXbyP TYiuE3hNFXoW7a9UiXeCh L0CPqgG5VuhiH5PFKpaAZ pWKMsmXAClH6h astee2wsypfpFwRkJLCbM Rk9WZq0ALUpqXmbMbItQY X3TxK4USI6dQNchE7akBf zcqfokT1zVjx+ TBA1WPR1SR03CI90J1MaB jwvdGFibGU+PHRhYmxlIH dpZHRoPScxMDAlJyBzdHl mKC6lOu7lIAYj LWNvbGxh (more content not included)... Normal [facility] CBC AUTO DIFFon 12-30-2022 BASO # 0.0 103/ul Normal 0.0-0.[address] [facility] Comment on above: Performed By: #### C BC #### [facility] [address] [address] [address] Josephine Dutta Basophils/100 WBC (Bld) 0.4 % Normal 0.2-2.[address] [facility] Comment on above: Performed By: #### C BC #### [facility] [address] [address] [address] Josephine Dutta EO # 0.2 103/ul Normal 0.0-0.[address] [facility] Comment on above: Performed By: #### C BC #### [facility] [address] [address] [address] Josephine Dutta Eosinophils/100 WBC (Bld) 3.2 % Normal 0.9-7.[address] [facility] Comment on above: Performed By: #### C BC #### [facility] [address] [address] [address] Josephine Dutta Erythrocyte distribution width (RBC) [Ratio] 12.9 % Normal 11.0-15.[address] [facility] Comment on above: Performed By: #### C BC #### [facility] [address] [address] [address] Josephine Dutta Hematocrit (Bld) [Volume fraction] 40.9 % Normal 36.0-48.[address] [facility] Comment on above: Performed By: #### C BC #### [facility] [address] [address] [address] Josephine Dutta Hemoglobin (Bld) [Mass/Vol] 14.5 g/dL Normal 12.0-16.[address] [facility] Comment on above: Performed By: #### C BC #### [facility] [address] [address] [address] Josephine Dutta IG # 0.03 10e3/ul Normal 0.00-0.[address] [facility] Comment on above: Performed By: #### C BC #### [facility] [address] [place] [address] Dr. Josephine Dutta IG % 0.4 % Normal 0.0-0.[address] [facility] Comment on above: Performed By: #### C BC #### [facility] [address] [place] [address] Dr. Josephine Dutta LYMPH # 2.1 103/ul Normal 1.2-3.[address] [facility] Comment on above: Performed By: #### C BC #### [facility] [address] [place] [address] Dr. Josephine Dutta Lymphocytes/100 WBC (Bld) 29.1 % Normal 20.5-60.[address] [facility] Comment on above: Performed By: #### C BC #### [facility] [address] [place] [address] Dr. Josephine Dutta MANUAL DIFF REQ NO Normal [facility] Comment on above: Performed By: #### C BC #### [facility] [address] [place] [address] Dr. Josephine Dutta MCH (RBC) [Entitic mass] 31.0 pg Normal 26.7-34.[address] [facility] Comment on above: Performed By: #### C BC #### [facility] [address] [place] [address] Dr. Josephine Dutta MCHC (RBC) [Mass/Vol] 35.5 g/dL Critically high 29.9-35.[address] [facility] Comment on above: Performed By: #### C BC #### [facility] [address] [place] [address] Dr. Josephine Dutta MCV (RBC) [Entitic vol] 87.6 fL Normal 81.0-99.[address] [facility] Comment on above: Performed By: #### C BC #### [facility] [address] [place] [address] Dr. Josephine Dutta MONO # 0.7 103/ul Normal 0.3-0.[address] [facility] Comment on above: Performed By: #### C BC #### [facility] [address] [place] [address] Dr. Josephine Dutta Monocytes/100 WBC (Bld) 9.3 % Normal 1.7-12.[address] [facility] Comment on above: Performed By: #### C BC #### [facility] [address] [place] [address] Dr. Josephine Dutta NEUT # 4.1 103/ul Normal 1.4-6.[address] [facility] Comment on above: Performed By: #### C BC #### [facility] [address] [place] [address] Dr. Josephine Dutta Neutrophils/100 WBC (Bld) 57.6 % Normal 43.0-75.[address] [facility] Comment on above: Performed By: #### C BC #### [facility] [address] [place] [address] Dr. Josephine Dutta Platelet mean volume (Bld) [Entitic vol] 9.6 fL Normal 9.5-13.[address] [facility] Comment on above: Performed By: #### C BC #### [facility] [address] [place] [address] Dr. Josephine Dutta PLT 211 103/ul Normal 150-[address] [facility] Comment on above: Performed By: #### C BC #### [facility] [address] [place] [address] Dr. Josephine Dutta RBC 4.67 106/ul Normal 4.20-5.[address] [facility] Comment on above: Performed By: #### C BC #### [facility] [address] [place] [address] Dr. Josephine Dutta WBC 7.1 103/ul Normal 4.0-11.[address] [facility] Comment on above: Performed By: #### C BC #### [facility] [address] [place] [address] Dr. Josephine Dutta GLYCOHEMOGLOBIN A1Con 2022 ADA RECOMMENDATION SEE BELOW Normal [facility] Comment on above: Result Comment: ADA RECOMMENDED LIMIT 4.0 - 6.0 ADA THERAPEUTIC TARGET < 7.0 ACTION SUGGESTED > 7.0 Performed By: #### A 1C #### [facility] [address] [address] [address] Josephine Dutta Glucose [Mass/Vol] 77 mg/dL Normal [facility] Comment on above: Performed By: #### A 1C #### [facility] [address] [address] [address] Josephine Dutta HbA1c (Bld) [Mass fraction] 4.3 % Critically low 4.5-6.[address] [facility] Comment on above: Performed By: #### A 1C #### [facility] [address] [place] [address] Dr. Josephine Dutta LIPID PROFILEon 12-30-2022 CHOL-HDL RATIO NORM SEE BELOW Normal [facility] Comment on above: Result Comment: 3.3 - 4.4 LOW RISK 4.4 - 7.1 AVERAGE RISK 7.1 - 11.0 MODERATE RISK >11.0 HIGH RISK Performed By: #### C MP, LIPID, TSH #### [facility] [address] [place] [address] Dr. Josephine Dutta Cholesterol [Mass/Vol] 176 mg/dL Normal <=[address] [facility] Comment on above: Performed By: #### C MP, LIPID, TSH #### [facility] [address] [place] [address] Dr. Josephine Dutta Cholesterol in HDL [Mass/Vol] 50 mg/dL Normal 40-[address] [facility] Comment on above: Performed By: #### C MP, LIPID, TSH #### [facility] [address] [address] [address] Josephine Dutta Cholesterol in LDL [Mass/Vol] 99.0 mg/dL Normal [facility] Comment on above: Performed By: #### C MP, LIPID, TSH #### [facility] [address] [place] [address] Dr. Josephine Dutta Cholesterol.total/C holesterol in HDL [Mass ratio] 3.5 {ratio} Normal [facility] Comment on above: Performed By: #### C MP, LIPID, TSH #### [facility] [address] [place] [address] Dr. Josephine Dutta HDL NORMAL > or = 60 mg/dl - LO W CARDIOVASCULAR RISK <40 mg/dl - HIGH CARDIOVASCULAR RISK Normal [facility] Comment on above: Performed By: #### C MP, LIPID, TSH #### [facility] [address] [address] [address] Josephine Dutta LDL CALC NORMAL SEE BELOW Normal [facility] Comment on above: Result Comment: <100 mg/dl OPTIMAL 100 - 129 mg/dl NEAR OR ABOVE OPTIMAL 130 - 159 mg/dl BORDERLINE HIGH 160 - 189 mg/dl HIGH >190 mg/dl VERY HIGH Performed By: #### C MP, LIPID, TSH #### [facility] [address] [address] [address] Josephine Dutta Triglyceride [Mass/Vol] 135 mg/dL Normal <=[address] [facility] Comment on above: Performed By: #### C MP, LIPID, TSH #### [facility] [address] [place] [address] Dr. Josephine Dutta VLDL CALC 27.0 mg/dL Normal [facility] Comment on above: Performed By: #### C MP, LIPID, TSH #### [facility] [address] [address] [address] Josephine Dutta PROF 14(COMP METB)on 023 Albumin [Mass/Vol] 4.1 g/dL Normal 3.4-5.0 [facility] Comment on above: Performed By: #### C MP, LIPID, TSH #### [facility] [address] [place] [address] Dr. Josephine Dutta Albumin/Globulin [Mass ratio] 1.2 {ratio} Normal [facility] Comment on above: Performed By: #### C MP, LIPID, TSH #### [facility] [address] [place] [address] Dr. Josephine Dutta ALP [Catalytic activity/Vol] 44 U/L Critically low 46-[address] [facility] Comment on above: Performed By: #### C MP, LIPID, TSH #### [facility] [address] [place] [address] Dr. Josephine Dutta ALT [Catalytic activity/Vol] 34 U/L Normal 14-[address] [facility] Comment on above: Performed By: #### C MP, LIPID, TSH #### [facility] [address] [place] [address] Dr. Josephine Dutta Anion gap [Moles/Vol] 13.6 mmol/L Normal [facility] Comment on above: Performed By: #### C MP, LIPID, TSH #### [facility] [address] [place] [address] Dr. Josephine Dutta AST [Catalytic activity/Vol] 24 U/L Normal 15-[address] [facility] Comment on above: Performed By: #### C MP, LIPID, TSH #### [facility] [address] [place] [address] Dr. Josephine Dutta Bilirubin [Mass/Vol] 1.0 mg/dL Normal 0.2-1.[address] [facility] Comment on above: Performed By: #### C MP, LIPID, TSH #### [facility] [address] [place] [address] Dr. Josephine Dutta Calcium [Mass/Vol] 9.4 mg/dL Normal 8.5-10.1 [facility] [facility] Comment on above: Performed By: #### C MP, LIPID, TSH #### [facility] [address] [place] [address] Dr. Josephine Dutta Chloride [Moles/Vol] 99 mmol/L Normal 98-[address] [facility] Comment on above: Performed By: #### C MP, LIPID, TSH #### [facility] [address] [place] [address] Dr. Josephine Dutta CO2 [Moles/Vol] 27.5 mmol/L Normal 21.0-32.0 [facility] Comment on above: Performed By: #### C MP, LIPID, TSH #### [facility] [address] [place] [address] Dr. Josephine Dutta Creatinine [Mass/Vol] 0.66 mg/dL Normal 0.55-1.[address] [facility] Comment on above: Performed By: #### C MP, LIPID, TSH #### [facility] [address] [address] [address] Josephine Dutta EGFR-AF GREEK >60 Normal >=60 [facility] Comment on above: Performed By: #### C MP, LIPID, TSH #### [facility] [address] [address] [address] Josephine Dutta EGFR-NON AF GREEK >60 Normal >=[address] [facility] Comment on above: Performed By: #### C MP, LIPID, TSH #### [facility] [address] [address] [address] Josephine Dutta Globulin (S) [Mass/Vol] 3.3 g/dL Normal [facility] Comment on above: Performed By: #### C MP, LIPID, TSH #### [facility] [address] [place] [address] Dr. Josephine Dutta Glucose [Mass/Vol] 85 mg/dL Normal 74-106 [facility] Comment on above: Performed By: #### C MP, LIPID, TSH #### [facility] [address] [place] [address] Dr. Josephine Dutta Potassium [Moles/Vol] 4.1 mmol/L Normal 3.5-5.[address] [facility] Comment on above: Performed By: #### C MP, LIPID, TSH #### [facility] [address] [place] [address] Dr. Josephine Dutta Protein [Mass/Vol] 7.4 g/dL Normal 6.4-8.2 [facility] Comment on above: Performed By: #### C MP, LIPID, TSH #### [facility] [address] [place] [address] Dr. Josephine Dutta Sodium [Moles/Vol] 136 mmol/L Normal 136-145 [facility] Comment on above: Performed By: #### C MP, LIPID, TSH #### [facility] [address] [place] [address] Dr. Josephine Dutta Urea nitrogen [Mass/Vol] 12.0 mg/dL Normal 7.0-18.[address] [facility] Comment on above: Performed By: #### C MP, LIPID, TSH #### [facility] [address] [address] [address] Josephine Dutta Urea nitrogen/Creatinine [Mass ratio] 18.2 mg/mg [facility] Comment on above: Performed By: #### C MP, LIPID, TSH #### [facility] [address] [address] [address] Josephine Dutta TSHon 12-30-2022 TSH 5.052 uIU/mL Critically high 0.358-3.740 [facility] Comment on above: Performed By: #### C MP, LIPID, TSH #### [facility] [address] [address] [address] Josephine Dutta PAP [id number] 12-24-2022 Collection Technique BRUSH-SPATULA Normal [facility] Comment on above: Performed By: #### 3 [id number] #### [facility] [address] [place] [address] Gynecological Body Site ENDOCERVIX Normal [facility] Comment on above: Performed By: #### 3 [id number] #### [facility] [address] [place] [address] Previous Cytology Negative Normal [facility] Comment on above: Performed By: #### 3 [id number] #### [facility] [address] [place] [address] Previous Treatment NONE Normal [facility] Comment on above: Performed By: #### 3 [id number] #### [facility] [address] [id number] Physician Orderon 12-24-2022 Physician Order [id number] Normal [facility] QUANTIFERON TB GOLD PLUSon 0 03-28-2022 QuantiFERON Criteria Comment Normal [facility] Comment on above: Result Comment: The QuantiFERON-TB Gold Plus result is determined by subtracting the Nil value from either TB antigen (Ag) tube. The mitogen tube serves as a control for the test. Performed By: #### Q NTTB #### [facility] [address] [place] [address] Dr. Josephine Dutta QuantiFERON Incubation Incubation performed. Normal [facility] Comment on above: Performed By: #### Q NTTB #### [facility] [address] [place] [address] Dr. Josephine Dutta QuantiFERON Mitogen Value >10.[address] [facility] Comment on above: Performed By: #### Q NTTB #### [facility] [address] [place] [address] Dr. Josephine Dutta QuantiFERON Nil Value 0.00 IU/mL Normal [facility] Comment on above: Performed By: #### Q NTTB #### [facility] [address] [place] [address] Dr. Josephine Dutta QuantiFERON TB1 Ag Value 0.00 IU/mL Normal [facility] Comment on above: Performed By: #### Q NTTB #### [facility] [address] [place] [address] Dr. Josephine Dutta QuantiFERON TB2 Ag Value 0.01 IU/mL Normal [facility] Comment on above: Performed By: #### Q NTTB #### [facility] [address] [place] [address] Dr. Josephine Dutta QuantiFERON-TB Gold Plus Negative Normal Negative [facility] Comment on above: Result Comment: Chem iluminescence immunoassay methodology Performed By: #### Q NTTB #### [facility] [address] [place] [address] Dr. Josephine Dutta HEPATITIS B SURFACE ANTIBODY , QUANTon 03-27-2022 Hepatitis B Surf AB Quant >1000.0 Normal Immunity>9.[address] [facility] Comment on above: Result Comment: Stat us of Immunity Anti-HBs Level Inconsistent with Immunity 0.0 - 9.9 Consistent with Immunity >9.9 Performed By: #### H EPBSRF #### [facility] [address] [place] [address] Dr. Josephine Dutta MMR IMMUNITYon 03-27-2022 Mumps Abs, IgG 94.8 AU/mL Normal Immune >10.9 [facility] Comment on above: Result Comment: Nega tive <9.0 Equivocal 9.0 - 10.9 Positive >10.9 A positive result generally indicates past exposure to Mumps virus or previous vaccination. Performed By: #### M MRIMMU #### [facility] [address] [place], [place] [address] Dr. Josephine Dutta Rubella Antibodies, IgG 2.04 index Normal Immune >0.[address] [facility] Comment on above: Result Comment: Non- immune <0.90 Equivocal 0.90 - 0.99 Immune >0.99 Performed By: #### M MRIMMU #### [facility] [address] [address] [address] Josephine Dutta Rubeola Ab, IgG >300.0 Normal Immune >16.4 [facility] Comment on above: Result Comment: Nega tive <13.5 Equivocal 13.5 - 16.4 Positive >16.4 Presence of antibodies to Rubeola is presumptive evidence of immunity except when acute infection is suspected. Performed By: #### M MRIMMU #### [facility] [address] [place], [place] [address] Dr. Josephine Dutta VARICELLA IGG ABon 2 Varicella Zoster IgG 964 index Normal Immune >[address] [facility] Comment on above: Result Comment: Nega tive <135 Equivocal 135 - 165 Positive >165 A positive result generally indicates exposure to the pathogen or administration of specific immunoglobulins, but it is not indication of active infection or stage of disease. Performed By: #### V ARCEL #### [facility] [address] [place], [place] [address] Dr. Josephine Dutta Encounters Encounter Date Encounter Type Care Provider Facility Start: 12-06-2024 End: 12-06-2024 ambulatory LAURENT FUENTES Not Available Start: 11-08-2024 End: 11-08-2024 Yuan Fuentes MD Work Phone: [facility] Comment on above: Seasonal allergic rh initis due to pollen Start: 09-23-2024 End: 09-23-2024 Refcristy Fuentes MD Work Phone: [facility] Comment on above: Adult hypothyroidism (CMS/HCC); Gastro-esophageal reflux disease without esophagitis; Esophageal reflux Start: 09-07-2024 End: 09-07-2024 Clinisync Result Encounter Laurent Fuentes MD Work Phone: [facility] Unsolicited Start: 09-07-2024 End: 09-07-2024 Clinisync Result Encounter Laurent Fuentes MD Work Phone: [facility] Unsolicited Start: 08-09-2024 End: 08-13-2024 Refill Laurent Fuentes MD Work Phone: [facility] Comment on above: Adult hypothyroidism (CMS/HCC) Start: 05-23-2024 End: 05-23-2024 Clinisync Result Encounter Laurent Fuentes MD Work Phone: [facility] Unsolicited Start: 05-23-2024 End: 05-23-2024 Clinisync Result Encounter Laurent Fuentes MD Work Phone: [facility] Unsolicited Start: 05-18-2024 End: 05-18-2024 Bamboo flowsheet Laurent Fuentes MD Work Phone: [facility] Start: 05-18-2024 End: 05-18-2024 Bamboo flowsheet Laurent Fuentes MD Work Phone: [facility] Start: 05-18-2024 End: 05-18-2024 ambulatory LAURENT FUENTES Not Available Start: 01-12-2023 End: 01-13-[address] LARRY DEL RIO Facility:[facility] Start: 01-03-2023 Encounter for genera l adult medical examination without abnormal findings DR NYDIA INGRAM [facility] Start: 12-30-2022 End: 12-31-[address] NYDIA INGRAM Facility:[facility] Start: 12-30-2022 End: 12-31-2022 Encounter for general adult medical examination without abnormal findings DR NYDIA INGRAM Facility:[facility] Start: 12-24-2022 End: 12-25-2022 ambulatory Abby Patterson Facility:[facility] Start: 12-24-2022 End: 12-24-2022 Lab Drop off Abby Patterson [facility] Start: 07-24-2022 End: 07-25-[address] MOHAMUD VAUGHAN . Facility:[facility] Start: 03-26-2022 End: 03-27-2022 ambulatory ANASTACIO BARRAGAN Facility: Procedures Date Procedure Procedure Detail Performing Clinician Start: 09-07-2024 ALL THYROXINE (T4) FREE Laurent Fuentes MD Work Phone: Start: 05-23-2024 ALL CBC WITH AUTO DIFF Laurent Fuentes MD Work Phone: Start: 01-22-2024 Mammography Laurent khan MD Work Phone: Plan of Treatment Date Care Activity Detail Author Start: 01-21-2025 Screening for malign ant neoplasm of breast Mammogram [facility] Start: 05-29-2024 Influenza vaccination Influenza Vacc ine (#1) [facility] Start: 05-18-2024 End: 05-18-2024 Patient encounter procedure 05/18/2024 1:45 PM EDT Office Visit [facility] [address] [place] [phone] Laurent Fuentes MD [address] [place] [phone] Arrived [facility] Comment on above: Arrived Start: 2013 Screening for malign ant neoplasm of cervix [facility] Start: 01-11-2004 Screening for malign ant neoplasm of cervix Pap Smear [facility] Payers Date Payer Category Payer [facility] Shield BCBS [id number] 2022 Unknown BCBS BCBS [id number] 2022-Present [phone] [address] [place] [address] [id number] 2022 Unknown [id number] 1985 Unknown [id number] [id number] 1985 Unknown [id number] [id number] 1985 Unknown [id number] [id number] 1985 Unknown [id number] [id number] 1985 Unknown [id number] [id number] 1961 Self-pay Unknown [id number] [id number] Unknown [id number] [id number] Social History Date Type Detail Facility Tobacco smoking status [facility] Start: 05-18-2024 Sex Assigned At Female F [facility] Start: 05-18-2024 [facility] Start: 05-18-2024 Tobacco use and exposure Smokeless tobacco non-user [facility] Start: 05-18-2024 Alcoholic beverage intake Current drinker of alcohol (finding) [facility] Start: 05-18-2024 History of Social function [facility] Start: 1985 Sex assigned at Female [facility] Start: 05-17-2024 Gender identity Identifies as female gender (finding) [facility] Tobacco smoking stat us NHIS Tobacco smoking consumption unknown [facility] Evaluation + Plan note 12-24-2022 Note Date & Type Note Facility 12-24-2022 Evaluation + Plan note Diagnostic Tests PendingPAP [id number]/24/22 [facility] Evaluation note Note Date & Type Note Facility Evaluation note Diagnosis Adult hypothyroidism (CMS/HCC) Unspecified hypothyroidism documented in this encounter [facility] Evaluation note Note Date & Type Note Facility Evaluation note Diagnosis Adult hypothyroidism (CMS/HCC) Unspecified hypothyroidism Gastro-esophageal reflux disease without esophagitis Esophageal reflux documented in this encounter [facility] Evaluation note Note Date & Type Note Facility Evaluation note Diagnosis Seasonal allergic rhinitis due to pollen documented in this encounter [facility] Hospital course Narrative Note Date & Type Note Facility Hospital course Narrative No data available for this section [facility] Hospital Discharge instructions Note Date & Type Note Facility Hospital Discharge instructions No data available for this section [facility] Progress note Note Date & Type Note Facility Progress note No data available for this section [facility] Summary Purpose Family History No Family History Records FoundNo Family History Records FoundNo Family History Records Found Advance Directives No Advanced Directives Records FoundNo Advanced Directives Records FoundNo Advanced Directives Records Found Additional Source Comments Patient Care team informatio n (unrecognized section and content) Ordnance Officer Relationship Specialty Start Date End Date Laurent Fuentes MD [address] [place] [phone] PCP - General Family Medicine 05/18/24 Ordnance Officer Relationship Specialty Start Date End Date Laurent Fuentes MD [address] [place] [phone] PCP - General Family Medicine 05/18/24 Ordnance Officer Relationship Specialty Start Date End Date Laurent Fuentes MD [address] [place] [address] PCP - General Family Medicine 05/18/24 Ordnance Officer Relationship Specialty Start Date End Date Laurent Fuentes MD [address] [place] [phone] PCP - General Family Medicine 05/18/24 Ordnance Officer Relationship Specialty Start Date End Date Laurent Fuentes MD [address] [place] [phone] PCP - General Family Medicine 05/18/24 INFORMATION SOURCE (unrecogn ized section and content) DATE CREATED AUTHOR 01/02/2023 [facility] DATE CREATED AUTHOR AUTHOR'S ORGANIZ ATION 01/21/2023 [facility] DATE CREATED AUTHOR AUTHOR'S ORGANIZ ATION 12/08/2024 [facility] EPIC Reason for Visit (unrecogniz ed [...] BE BASED ON THE PRIMARY CLINICAL RECORDS. [employer] provides no warranty or guarantee of the accuracy or completeness of information in this document.
[2024-12-16 08:53] LABS: Chol HDL Ratio 3.7; Cholesterol 131 mg/dL (<=200); Glucose 92 mg/dL (74-106); HDL Cholesterol 35 mg/dL (40-60); Thyroid Stimulating Hormone 2.532 uIU/mL (0.358-3.740); Triglycerides 175 mg/dL (<=150)
== END 2024-12-16 06:55 | disposition home or self-care (01) ==
LOC: LAB 06:54
PROVIDERS: PCP Family Medicine; Visit Provider Family Medicine
DX: E03.9 Hypothyroidism, unspecified (principal); Z13.220 Encounter for screening for lipoid disorders; Z13.1 Encounter for screening for diabetes mellitus
CPT/HCPCS: 36415; 80061; 82947; 84443

== ENCOUNTER 2025-02-08 06:59 | Outpatient (OUT) | payer BC, SELFPAY ==
--- NOTE | 2025-02-08 | MM_ITS ---
Patient Name: ANGELINA EDWARDS MR#: [id number] : 1985 Exam Date: 02/08/2025 Ordering Doctor: [facility] REPORT PROCEDURE: MM TOMOSYNTHESIS SCREENING BI COMPARISON: MM TOMOSYNTHESIS SCREENING BI, 01/22/2024. MG MAMM SCREEN 3D JESS CAD, 01/12/2023. INDICATIONS: SCREENING Calculator Name NCI Breast Cancer Risk Assessment Tool 5 Year Breast Cancer Risk 1.30% Lifetime Breast Cancer Risk 18.50% Personal Breast Cancer No Personal Ovarian Cancer No Treatments None Family Cancers Mother with breast cancer at age ~50. LOCATION: [facility] BREAST COMPOSITION: There are scattered areas of fibroglandular density. FINDINGS: DIAGNOSTIC CATEGORY 2--BENIGN FINDING: RIGHT BREAST: No significant suspicious finding. Punctate benign-appearing calcifications are present. Benign-appearing lymph nodes are noted along the chest wall. LEFT BREAST: No significant suspicious finding. Punctate benign-appearing calcifications are present. Benign-appearing lymph nodes are noted along the chest wall. RECOMMENDATIONS: ROUTINE MAMMOGRAM AND CLINICAL EVALUATION IN 12 MONTHS. PLEASE NOTE: A NORMAL MAMMOGRAM DOES NOT EXCLUDE THE POSSIBILITY OF BREAST CANCER. A CLINICALLY SUSPICIOUS PALPABLE LUMP SHOULD BE BIOPSIED. Dictated by: Erick Alvarenga MD on 02/08/2025 at 09:48 Approved by: Erick Alvarenga MD on 02/08/2025 at 09:52
--- OUTSIDE RECORDS SUMMARY | 2025-02-08 07:01 | XMS_ITS | CCD ---
Author Organization [facility] Care Team Providers Care Service Coordinator Elderly Facility Name Role Phone Annabella Pedrofer Ada Primary Care Physician QUANG, DR JUAREZ Admitting Unavailable QUANG, DR JUAREZ Attending Unavailable JUAN JOSE, DR NYDIA Valentine Primary Care Unavailable QUANG, DR JUAREZ Consulting Unavailable GREENBRAE, DR TROY Pineda Consulting Unavailable LAUREL, ANASTACIO Admitting Unavailable LAUREL, ANASTACIO Attending Unavailable LAUREL, ANASTACIO Consulting Unavailable HOAsad ., DR MALLORY Admitting Unavailable HOY ., DR MALLORY Attending Unavailable HOY ., DR MALLORY Consulting Unavailable JUAN JOSE, DR NYDIA Valentine Admitting Unavailable NADERER, DR NYDIA Valentine Attending Unavailable JUAN JOSE, DR NYDIA Valentine Primary Care Unavailable JUAN JOSE, DR NYDIA Valentine Consulting Unavailable Laurent Fuentes MD Primary Care Provider LAURENT FUENTES Attending Unavailable LAURENT FUENTES Attending Unavailable Abby Patterson Attending Unavailable Allergies Allergy Classification Reported Allergen(s) Allergy Type Date of Onset Reaction(s) Facility (8 sources) Erythromycin; Translations: [erythromycin] Drug Allergy 05-18-2024 [facility] (1 source) Erythromycin Drug Allergy 07-24-2022 [facility] Repository Medications Current Medications Medication Drug [...] Test Name Value Interpretation Reference Range Facility PAP [id number] 01-30-2025 Cytology report Cyto stain Doc (Cvx/Vag) Note Invalid Interpretation Code [facility] Comment on above: Result Comment: TEST S RESULT FLAG UNITS REF RANGE LAB Clinician Provided Cytology Information Source.............[employer] No. of containers..01 ThinPrep Vial DIAGNOSIS: 01 NEGATIVE FOR INTRAEPITHELIAL LESION OR MALIGNANCY. FUNGAL ORGANISMS MORPHOLOGICALLY CONSISTENT WITH ANG SPECIES ARE PRESENT. CELLULAR CHANGES ASSOCIATED WITH INFLAMMATION ARE PRESENT. Specimen adequacy: 01 Satisfactory for evaluation. No endocervical component is identified. Performed by: 01 Humza Valdes Dredge Operator ([facility]) . 01 Note: Note 01 The Pap [...] <-Panic Low,>-Panic High,A-Abnormal,AA-Critical Abnormal Performed at: [address] [facility] [id number] Orin Acharya MD, Performed By: #### 3 [id number] #### [facility] [address] [place] [id number] HPV 16+18+31+33+35+39+4 5+51+52+56+58+59+66 +68 DNA Probe+sig amp Ql (Cvx) Negative Invalid Interpretation Code Negative [facility] Comment on above: Result Comment: This nucleic acid amplification test detects fourteen high-risk HPV types (16,18,31,33,35,39,45,51,52,56,58,59,66,68) without differentiation. Performed at: [facility] [address], [place] [id number] MD Patrizia Sr Performed at: =[facility] [address], [place] [id number] MD Patrizia Sr Performed By: #### 3 [id number] #### [facility] [address] [place] [address] PAP [id number] 01-25-2025 Collection Technique BRUSH-SPATULA Normal [facility] Comment on above: Performed By: #### 3 [id number] #### [facility] [address] [place] [address] Gynecological Body Site ENDOCERVIX Normal [facility] Comment on above: Performed By: #### 3 [id number] #### [facility] [address] [place] [address] ALL THYROXINE (T4) FREEon Free T4 [Mass/Vol] 0.97 ng/dL 0.76 - 1. 46 ng/dL [facility] ALL CBC WITH AUTO DIFFon BASOPHILS ABSOLUTE AUTO 0.0 [facility] Basophils/100 WBC (Bld) 0.3 % 0.2 - 2.0 % [facility] Eosinophils/100 WBC (Bld) 3.0 % 0.9 - 7.0 % [facility] Erythrocyte distribution width (RBC) [Ratio] 13.2 % 11.0 - 15.0 % [facility] Hematocrit (Bld) [Volume fraction] 37.3 % 36.0 - 48.0 % [facility] Hemoglobin (Bld) [Mass/Vol] 13.1 g/dL 12.0 - 16.0 g/dL [facility] IMMATURE GRANULOCYTES ABS AUTO 0.02 [facility] Immature granulocytes/100 WBC (Bld) 0.3 % 0.0 - 0.5 % [facility] LYMPHOCYTES ABSOLUTE AUTO 1.9 [facility] Lymphocytes/100 WBC (Bld) 28.5 % 20.5 - 60.0 % [facility] MCH (RBC) [Entitic mass] 31.0 pg 26.7 - 34.0 pg [facility] MCHC (RBC) [Mass/Vol] 35.1 g/dL 29.9 - 35.2 g/dL [facility] MCV (RBC) [Entitic vol] 88.4 fL 81.0 - 99.0 fL [facility] MONOCYTES ABSOLUTE AUTO 0.5 [facility] Monocytes/100 WBC (Bld) 7.8 % 1.7 - 12.0 % [facility] NEUTROPHILS ABSOLUTE AUTO 4.1 [facility] Neutrophils/100 WBC (Bld) 60.1 % 43.0 - 75.0 % [facility] Platelet mean volume (Bld) [Entitic vol] 10.2 fL 9.5 - 13.5 fL [facility] TBH EO # 0.2 [facility]H PLT 189 [facility] TB RBC 4.22 [facility] TBH WBC 6.8 [facility] MG MAMM SCREEN 3D JESS CADon 01-12-2023 MG MAMM SCREEN 3D JESS CAD Patient: YEIMY EDWARDS Exam Date: 01/12/2023 : 1985 Gender:F Ordering : DR LARRY DEL RIO M.D. Admission #: [id number] Family : Order #: [id number] CLICK HERE TO VIEW EXAM RADIOLOGY REPORT PROCEDURE: MAMMOGRAM SCREENING 3D BILATERAL CAD COMPARISON: None. INDICATIONS: Family history of malignant neoplasm of breast Calculator Name NCI Breast Cancer Risk Assessment Tool 5 Year Breast Cancer Risk 1.10% Lifetime Breast Cancer Risk 18.80% Personal Breast Cancer No Personal Ovarian Cancer No Treatments None Family Cancers Mother with breast cancer at age 50. LOCATION: [facility] BREAST COMPOSITION: Scattered areas fibroglandular density. FINDINGS: [...] MD on 01/12/2023 at 10:40 Normal [facility] CBC AUTO DIFFon 12-30-2022 BASO # 0.0 103/ul Normal 0.0-0.1 [facility] Comment on above: Performed By: #### C BC #### [facility] [address] [place] [address] Dr. Josephine Dutta Basophils/100 WBC (Bld) 0.4 % Normal 0.2-2.0 [facility] Comment on above: Performed By: #### C BC #### [facility] [address] [place] [address] Dr. Josephine Dutta EO # 0.2 103/ul Normal 0.0-0.7 [facility] Comment on above: Performed By: #### C BC #### [facility] [address] [place] [address] Dr. Josephine Dutta Eosinophils/100 WBC (Bld) 3.2 % Normal 0.9-7.0 [facility] Comment on above: Performed By: #### C BC #### [facility] [address] [place] [address] Dr. Josephine Dutta Erythrocyte distribution width (RBC) [Ratio] 12.9 % Normal 11.0-15.0 [facility] Comment on above: Performed By: #### C BC #### [facility] [address] [place] [address] Dr. Josephine Dutta Hematocrit (Bld) [Volume fraction] 40.9 % Normal 36.0-48.0 [facility] Comment on above: Performed By: #### C BC #### [facility] [address] [place] [address] Dr. Josephine Dutta Hemoglobin (Bld) [Mass/Vol] 14.5 g/dL Normal 12.0-16.0 [facility] Comment on above: Performed By: #### C BC #### [facility] [address] [place] [address] Dr. Josephine Dutta IG # 0.03 10e3/ul Normal 0.00-0.03 [facility] Comment on above: Performed By: #### C BC #### [facility] [address] [place] [address] Dr. Josephine Dutta IG % 0.4 % Normal 0.0-0.5 [facility] Comment on above: Performed By: #### C BC #### [facility] [address] [place] [address] Dr. Josephine Dutta LYMPH # 2.1 103/ul Normal 1.2-3.8 [facility] Comment on above: Performed By: #### C BC #### [facility] [address] [place] [address] Dr. Josephine Dutta Lymphocytes/100 WBC (Bld) 29.1 % Normal 20.5-60.0 [facility] Comment on above: Performed By: #### C BC #### [facility] [address] [place] [address] Dr. Josephine Dutta MANUAL DIFF REQ NO Normal [facility] Comment on above: Performed By: #### C BC #### [facility] [address] [place] [address] Dr. Josephine Dutta MCH (RBC) [Entitic mass] 31.0 pg Normal 26.7-34.0 [facility] Comment on above: Performed By: #### C BC #### [facility] [address] [place] [address] Dr. Josephine Dutta MCHC (RBC) [Mass/Vol] 35.5 g/dL Critically high 29.9-35.2 [facility] Comment on above: Performed By: #### C BC #### [facility] [address] [place] [address] Dr. Josephine Dutta MCV (RBC) [Entitic vol] 87.6 fL Normal 81.0-99.0 [facility] Comment on above: Performed By: #### C BC #### [facility] [address] [place] [address] Dr. Josephine Dutta MONO # 0.7 103/ul Normal 0.3-0.8 [facility] Comment on above: Performed By: #### C BC #### [facility] [address] [place] [address] Dr. Josephine Dutta Monocytes/100 WBC (Bld) 9.3 % Normal 1.7-12.0 [facility] Comment on above: Performed By: #### C BC #### [facility] [address] [place] [address] Dr. Josephine Dutta NEUT # 4.1 103/ul Normal 1.4-6.5 [facility] Comment on above: Performed By: #### C BC #### [facility] [address] [place] [address] Dr. Josephine Dutta Neutrophils/100 WBC (Bld) 57.6 % Normal 43.0-75.0 [facility] Comment on above: Performed By: #### C BC #### [facility] [address] [place] [address] Dr. Josephine Dutta Platelet mean volume (Bld) [Entitic vol] 9.6 fL Normal 9.5-13.5 [facility] Comment on above: Performed By: #### C BC #### [facility] [address] [place] [address] Dr. Josephine Dutta PLT 211 103/ul Normal 150-450 [facility] Comment on above: Performed By: #### C BC #### [facility] [address] [place] [address] Dr. Josephine Dutta RBC 4.67 106/ul Normal 4.20-5.40 [facility] Comment on above: Performed By: #### C BC #### [facility] [address] [place] [address] Dr. Josephine Dutta WBC 7.1 103/ul Normal 4.0-11.0 [facility] Comment on above: Performed By: #### C BC #### [facility] [address] [place] [address] Dr. Josephine Dutta GLYCOHEMOGLOBIN A1Con 2022 ADA RECOMMENDATION SEE BELOW Normal [facility] Comment on above: Result Comment: ADA RECOMMENDED LIMIT 4.0 - 6.0 ADA THERAPEUTIC TARGET < 7.0 ACTION SUGGESTED > 7.0 Performed By: #### A 1C #### [facility] [address] [place] [address] [address] Josephine Dutta Glucose [Mass/Vol] 77 mg/dL Normal [facility] Comment on above: Performed By: #### A 1C #### [facility] [address] [place] [address] [address] Josephine Dutta HbA1c (Bld) [Mass fraction] 4.3 % Critically low 4.5-6.2 [facility] Comment on above: Performed By: #### A 1C #### [facility] [address] [place] [address] Dr. Josephine Dutta LIPID PROFILEon 12-30-2022 CHOL-HDL RATIO NORM SEE BELOW Normal [facility] Comment on above: Result Comment: 3.3 - 4.4 LOW RISK 4.4 - 7.1 AVERAGE RISK 7.1 - 11.0 MODERATE RISK >11.0 HIGH RISK Performed By: #### C MP, LIPID, TSH #### [facility] [address] [place] [address] Dr. Josephine Dutta Cholesterol [Mass/Vol] 176 mg/dL Normal <=200 [facility] Comment on above: Performed By: #### C MP, LIPID, TSH #### [facility] [address] [place] [address] Dr. Josephine Dutta Cholesterol in HDL [Mass/Vol] 50 mg/dL Normal 40-60 [facility] Comment on above: Performed By: #### C MP, LIPID, TSH #### [facility] [address] [place] [address] Dr. Josephine Dutta Cholesterol in LDL [Mass/Vol] 99.0 mg/dL Normal [facility] Comment on above: Performed By: #### C MP, LIPID, TSH #### [facility] [address] [place] [address] Dr. Josephine Dutta Cholesterol.total/C holesterol in HDL [Mass ratio] 3.5 {ratio} Normal [facility] Comment on above: Performed By: #### C MP, LIPID, TSH #### [facility] [address] [place] [address] [address] Josephine Dutta HDL NORMAL > or = 60 mg/dl - LO W CARDIOVASCULAR RISK <40 mg/dl - HIGH CARDIOVASCULAR RISK Normal [facility] Comment on above: Performed By: #### C MP, LIPID, TSH #### [facility] [address] [place] [address] [address] Josephine Dutta LDL CALC NORMAL SEE BELOW Normal [facility] Comment on above: Result Comment: <100 mg/dl OPTIMAL 100 - 129 mg/dl NEAR OR ABOVE OPTIMAL 130 - 159 mg/dl BORDERLINE HIGH 160 - 189 mg/dl HIGH >190 mg/dl VERY HIGH Performed By: #### C MP, LIPID, TSH #### [facility] [address] [place] [address] [address] Josephine Dutta Triglyceride [Mass/Vol] 135 mg/dL Normal <=150 [facility] Comment on above: Performed By: #### C MP, LIPID, TSH #### [facility] [address] [place] [address] [address] Josephine Dutta VLDL CALC 27.0 mg/dL Normal [facility] Comment on above: Performed By: #### C MP, LIPID, TSH #### [facility] [address] [place] [address] [address] Josephine Dutta PROF 14(COMP METB)on 023 Albumin [Mass/Vol] 4.1 g/dL Normal 3.4-5.0 [facility] Comment on above: Performed By: #### C MP, LIPID, TSH #### [facility] [address] [place] [address] [address] Josephine Dutta Albumin/Globulin [Mass ratio] 1.2 {ratio} Normal [facility] Comment on above: Performed By: #### C MP, LIPID, TSH #### [facility] [address] [place] [address] [address] Josephine Dutta ALP [Catalytic activity/Vol] 44 U/L Critically low 46-116 [facility] Comment on above: Performed By: #### C MP, LIPID, TSH #### [facility] [address] [place] [address] [address] Josephine Dutta ALT [Catalytic activity/Vol] 34 U/L Normal 14-59 [facility] Comment on above: Performed By: #### C MP, LIPID, TSH #### [facility] [address] [place] [address] [address] Josephine Dutta Anion gap [Moles/Vol] 13.6 mmol/L Normal [facility] Comment on above: Performed By: #### C MP, LIPID, TSH #### [facility] [address] [place] [address] [address] Josephine Dutta AST [Catalytic activity/Vol] 24 U/L Normal 15-37 [facility] Comment on above: Performed By: #### C MP, LIPID, TSH #### [facility] [address] [place] [address] [address] Josephine Dutta Bilirubin [Mass/Vol] 1.0 mg/dL Normal 0.2-1.0 [facility] Comment on above: Performed By: #### C MP, LIPID, TSH #### [facility] [address] [place] [address] Dr. Josephine Dutta Calcium [Mass/Vol] 9.4 mg/dL Normal 8.5-10.1 [facility] Comment on above: Performed By: #### C MP, LIPID, TSH #### [facility] [address] [place] [address] Dr. Josephine Dutta Chloride [Moles/Vol] 99 mmol/L Normal 98-107 [facility] Comment on above: Performed By: #### C MP, LIPID, TSH #### [facility] [address] [place] [address] Dr. Josephine Dutta CO2 [Moles/Vol] 27.5 mmol/L Normal 21.0-32.0 [facility] Comment on above: Performed By: #### C MP, LIPID, TSH #### [facility] [address] [place] [address] Dr. Josephine Dutta Creatinine [Mass/Vol] 0.66 mg/dL Normal 0.55-1.02 [facility] Comment on above: Performed By: #### C MP, LIPID, TSH #### [facility] [address] [place] [address] Dr. Josephine Dutta EGFR-AF MEXICAN >60 Normal >=60 [facility] Comment on above: Performed By: #### C MP, LIPID, TSH #### [facility] [address] [place] [address] Dr. Josephine Dutta EGFR-NON AF MEXICAN >60 Normal >=60 [facility] Comment on above: Performed By: #### C MP, LIPID, TSH #### [facility] [address] [place] [address] Dr. Josephine Dutta Globulin (S) [Mass/Vol] 3.3 g/dL Normal [facility] Comment on above: Performed By: #### C MP, LIPID, TSH #### [facility] [address] [place] [address] Dr. Josephine Dutta Glucose [Mass/Vol] 85 mg/dL Normal 74-106 [facility] Comment on above: Performed By: #### C MP, LIPID, TSH #### [facility] [address] [place] [address] Dr. Josephine Dutta Potassium [Moles/Vol] 4.1 mmol/L Normal 3.5-5.1 [facility] Comment on above: Performed By: #### C MP, LIPID, TSH #### [facility] [address] [place] [address] Dr. Josephine Dutta Protein [Mass/Vol] 7.4 g/dL Normal 6.4-8.2 [facility] Comment on above: Performed By: #### C MP, LIPID, TSH #### [facility] [address] [place] [address] Dr. Josephine Dutta Sodium [Moles/Vol] 136 mmol/L Normal 136-145 [facility] Comment on above: Performed By: #### C MP, LIPID, TSH #### [facility] [address] [place] [address] Dr. Josephine Dutta Urea nitrogen [Mass/Vol] 12.0 mg/dL Normal 7.0-18.0 [facility] Comment on above: Performed By: #### C MP, LIPID, TSH #### [facility] [address] [place] [address] Dr. Josephine Dutta Urea nitrogen/Creatinine [Mass ratio] 18.2 mg/mg [facility] Comment on above: Performed By: #### C MP, LIPID, TSH #### [facility] [address] [place] [address] Dr. Josephine Dutta TSHon 12-30-2022 TSH 5.052 uIU/mL Critically high 0.358-3.740 [facility] Comment on above: Performed By: #### C MP, LIPID, TSH #### [facility] [address] [place] [address] Dr. Josephine Dutta QUANTIFERON TB GOLD PLUSon 0 03-28-2022 QuantiFERON Criteria Comment [facility] Comment on above: Result Comment: The QuantiFERON-TB Gold Plus result is determined by subtracting the Nil value from either TB antigen (Ag) tube. The mitogen tube serves as a control for the test. Performed By: #### Q NTTB #### [facility] [address] [place] [address] Dr. Josephine Dutta QuantiFERON Incubation Incubation performed. Normal [facility] Comment on above: Performed By: #### Q NTTB #### [facility] [address] [place] [address] Dr. Josephine Dutta QuantiFERON Mitogen Value >10.00 [facility] Comment on above: Performed By: #### Q NTTB #### [facility] [address] [place] [address] Dr. Josephine Dutta QuantiFERON Nil Value 0.00 IU/mL [facility] Comment on above: Performed By: #### Q NTTB #### [facility] [address] [place] [address] Dr. Josephine Dutta QuantiFERON TB1 Ag Value 0.00 IU/mL [facility] Comment on above: Performed By: #### Q NTTB #### [facility] [address] [place] [address] Dr. Josephine Dutta QuantiFERON TB2 Ag Value 0.01 IU/mL [facility] Comment on above: Performed By: #### Q NTTB #### [facility] [address] [place] [address] Dr. Josephine Dutta QuantiFERON-TB Gold Plus Negative Normal Negative [facility] Comment on above: Result Comment: Chem iluminescence immunoassay methodology Performed By: #### Q NTTB #### [facility] [address] [place] [address] Dr. Josephine Dutta HEPATITIS B SURFACE ANTIBODY , QUANTon 03-27-2022 Hepatitis B Surf AB Quant >1000.0 Normal Immunity>9.9 [facility] Comment on above: Result Comment: Stat us of Immunity Anti-HBs Level Inconsistent with Immunity 0.0 - 9.9 Consistent with Immunity >9.9 Performed By: #### H EPBSRF #### [facility] [address] [place] [address] Dr. Josephine Dutta MMR IMMUNITYon 03-27-2022 Mumps Abs, IgG 94.8 AU/mL Normal Immune >10.9 [facility] Comment on above: Result Comment: Nega tive <9.0 Equivocal 9.0 - 10.9 Positive >10.9 A positive result generally indicates past exposure to Mumps virus or previous vaccination. Performed By: #### M MRIMMU #### [facility] [address] [place] [address] Dr. Josephine Dutta Rubella Antibodies, IgG 2.04 index Normal Immune >0.99 [facility] Comment on above: Result Comment: Non- immune <0.90 Equivocal 0.90 - 0.99 Immune >0.99 Performed By: #### M MRIMMU #### [facility] [address] [place] [address] Dr. Josephine Dutta Rubeola Ab, IgG >300.0 Normal Immune >16.4 [facility] Comment on above: Result Comment: Nega tive <13.5 Equivocal 13.5 - 16.4 Positive >16.4 Presence of antibodies to Rubeola is presumptive evidence of immunity except when acute infection is suspected. Performed By: #### M MRIMMU #### [facility] [address] [place], [place] [address] Dr. Josephine Dutta VARICELLA IGG ABon 2 Varicella Zoster IgG 964 index Normal Immune >165 [facility] Comment on above: Result Comment: Nega tive <135 Equivocal 135 - 165 Positive >165 A positive result generally indicates exposure to the pathogen or administration of specific immunoglobulins, but it is not indication of active infection or stage of disease. Performed By: #### V CHAUNCEY #### [facility] [address] [place], [place] [address] Dr. Josephine Dutta Encounters Encounter Date Encounter Type Care Provider Facility Start: 01-25-2025 End: 01-25-2025 ambulatory Abby Patterson Facility:[facility] Start: 01-25-2025 End: 01-25-2025 Lab Drop off Abby Juarez [facility] Start: 12-06-2024 End: 12-06-2024 ambulatory LAURENT FUENTES Not Available Start: 11-08-2024 End: 11-08-2024 Refill Laurent Fuentes MD Work Phone: [facility] Comment on above: Seasonal allergic rh initis due to pollen Start: 09-23-2024 End: 09-23-2024 Refill Laurent Fuentes MD Work Phone: [facility] [...] examination without abnormal findings DR NYDIA INGRAM [facility] Start: 12-30-2022 End: 12-31-[address] NYDIA INGRAM Facility:[facility]1 Start: 12-30-2022 End: 12-31-2022 Encounter for general adult medical examination without abnormal findings DR NYDIA INGRAM Facility:[facility] Start: 12-24-2022 End: 12-24-2022 Lab Drop off Abby Larry Patterson [facility] Start: 07-24-2022 End: 07-25-[address] MOHAMUD VAUGHAN . Facility:[facility] Start: 03-26-2022 End: 03-27-2022 ambulatory ANASTACIO BARRAGAN Facility:[facility]1 Procedures Date Procedure Procedure Detail Performing Clinician Start: 09-07-2024 ALL THYROXINE (T4) FREE Laurent Fuentes MD Work Phone: Start: 05-23-2024 ALL CBC WITH AUTO DIFF Laurent Fuentes MD Work Phone: Start: 01-22-2024 Mammography Laurent khan MD Work Phone: Plan of Treatment Date Care Activity Detail Author Start: 01-21-2025 Screening for malign ant neoplasm of breast Mammogram [facility] Start: 05-29-2024 Influenza vaccination Influenza Vacc ine (#1) [facility] Start: 05-18-2024 End: 05-18-2024 Patient encounter procedure 05/18/2024 1:45 PM EDT Office Visit [facility] [address] [place] [id number] Laurent Fuentes MD [address] [place] [address] Arrived [facility] Comment on above: Arrived Start: 2013 Screening for malign ant neoplasm of cervix [facility] Start: 01-11-2004 Screening for malign ant neoplasm of cervix Pap Smear [facility] Payers Date Payer Category Payer [facility] [id number] 2022 Unknown [id number] 2022 Unknown [id number] 1985 Unknown [id number] 1983 Unknown [id number] 1983 Unknown [id number] [id number] 1983 Unknown [id number] [id number] 1983 Unknown [id number] [id number] 1959 Self-pay Unknown [id number] Unknown [id number] [id number] Social History Date Type Detail Facility Tobacco smoking status [facility] Start: 05-18-2024 Sex Assigned At Female F [facility] Start: 05-18-2024 Tobacco smoking stat [facility] Never smoked tobacco [facility] Start: 05-18-2024 Tobacco use and exposure Smokeless tobacco non-user [facility] Start: 05-18-2024 Alcoholic beverage intake Current drinker of alcohol (finding) [facility] Start: 05-18-2024 History of Social function [facility] Start: 1985 Sex assigned at Female N [facility] Start: 05-17-2024 Gender identity Identifies as female gender (finding) [facility] Tobacco smoking stat [facility] Tobacco smoking consumption unknown [facility] Start: 01-09-2010 Sex Female (finding) [facility] Evaluation + Plan note 01-25-2025 Note Date & Type Note Facility 01-25-2025 Evaluation + Plan note Diagnostic Tests PendingPAP 1992123001/25/25 [facility] Evaluation + Plan note 12-24-2022 Note Date & Type Note Facility 12-24-2022 Evaluation + Plan note Diagnostic Tests PendingPAP 1992123012/24/22 [facility] Evaluation note Note Date & Type Note Facility Evaluation note Diagnosis Adult hypothyroidism (CMS/HCC) Unspecified hypothyroidism documented in this encounter [facility] Evaluation note Note Date & Type Note Facility Evaluation note Diagnosis Adult hypothyroidism (CMS/HCC) Unspecified hypothyroidism Gastro-esophageal reflux disease without esophagitis Esophageal reflux documented in this encounter [facility] Evaluation note Note Date & Type Note Facility Evaluation note Diagnosis Seasonal allergic rhinitis due to pollen documented in this encounter [facility] Hospital course Narrative Note Date & Type Note Facility Hospital course Narrative No data available for this section [facility] Hospital Discharge instructions Note Date & Type Note Facility Hospital Discharge instructions No data available for this section [facility] Progress note Note Date & Type Note Facility Progress note No data available for this section [facility] Summary Purpose Family History No Family History Records FoundNo Family History Records Found No data available for this section No Family History Records FoundNo Family History Records Found Advance Directives No Advanced Directives Records FoundNo Advanced Directives Records FoundNo Advanced Directives Records FoundNo Advanced Directives Records Found Additional Source Comments Patient Care team informatio n (unrecognized section and content) Service Coordinator Elderly Facility Relationship Specialty Start Date End Date Laurent Fuentes MD [address] [place] [address] PCP - General Family Medicine 05/18/24 Service Coordinator Elderly Facility Relationship Specialty Start Date End Date Laurent Fuentes MD [address] [place] [address] PCP - General Family Medicine 05/18/24 Service Coordinator Elderly Facility Relationship Specialty Start Date End Date Laurent Fuentes MD [address] [place] [address] PCP - General Family Medicine 05/18/24 Service Coordinator Elderly Facility Relationship Specialty Start Date End Date Laurent Fuentes MD [address] [place] [address] PCP - General Family Medicine 05/18/24 Service Coordinator Elderly Facility Relationship Specialty Start Date End Date Laurent Fuentes MD [address] [place] [address] PCP - General Family Medicine 05/18/24 INFORMATION SOURCE (unrecogn ized section and content) DATE CREATED AUTHOR 01/21/2023 Cecelia Lunsford [facility] pital DATE CREATED AUTHOR AUTHOR'S ORGANIZ ATION 12/08/2024 [facility] EPIC DATE CREATED AUTHOR AUTHOR'S ORGANIZ ATION 01/26/2025 [facility] DATE CREATED AUTHOR AUTHOR'S ORGANIZ ATION 02/02/2025 [facility] Reason for Visit (unrecogniz ed section and [...] BE BASED ON THE PRIMARY CLINICAL RECORDS. [employer] provides no warranty or guarantee of the accuracy or completeness of information in this document.
== END 2025-02-08 07:00 | disposition home or self-care (01) ==
LOC: MAMMO 06:59
PROVIDERS: PCP Family Medicine; Visit Provider Nurse Practitioner Adult Health
DX: Z12.31 Encounter for screening mammogram for malignant neoplasm of breast (principal); Z80.3 Family history of malignant neoplasm of breast
CPT/HCPCS: 77063; 77067

== ENCOUNTER 2025-03-23 06:53 | Outpatient (OUT) | payer BC, SELFPAY ==
--- OUTSIDE RECORDS SUMMARY | 2025-03-23 06:55 | XMS_ITS | Encounter Summary ---
Author Organization [facility] Address [address] [place] [address] Care Team Providers Care Assistant Inventory Manager Name Role Phone Seamus Red MD Primary Care Provider [phone] Seamus Red MD Unavailable [phone] Reason for Visit * Reason Onset Date Comments Care Coordination 03/14/2025 Encounter Details Date Type Department Care Team (Late st Contact Info) Description 03/14/2025 Telephone [facility] [address] [place] [phone] Seamus Red MD [address] [place] [address] Care Coordination Social History Tobacco Use Types Packs/Day Years Used Date Smoking Tobacco: Never Smokeless Tobacco: Never Alcohol Use Standard Drinks/Week Comments Yes 0 (1 standard drink = 0.6 oz pur e alcohol) Comments No Sex and Gender Information Value Date Recorded Sex Assigned at Female 05/17/2024 2:11 PM EDT Legal Sex Female 7:27 PM EDT Gender Identity Female 05/17/2024 2:11 PM EDT Sexual Orientation Not on file documented as of this encounter Miscellaneous Notes * Addendum Note - Crow Uribe MA - 03/15/2025 8:00 AM EDTAddended by: CROW URIBE on: 03/15/2025 08:00 AM Modules accepted: Orders * Telephone Encounter - Crow Uribe MA - 03/15/2025 7:59 AM EDT Labs ordered per patient request, okay'd by [employer] due to employment need. Paperwork completed. * Telephone Encounter - [place] Smart - 03/14/2025 3:57 PM EDT Pt insurance has changed over with [facility] [employer], to meant there standards for the year with thelabs that were drawn back in november could she have these labs created A1C, CMP, CBC. Could those be sent to [facility] and could the labs be coded as wellness Pt also needs a wellness form to be fill out she is going to fax it over. She has it all filled outfrom her wellness on 12/06/2024 Pt would like for the completed form sent to her by email on form and faxed over documented in this encounter Plan of Treatment Scheduled Orders Name Type Priority Associated Diagnoses Orde r Schedule CBC and differential Lab Routine Annual physical exam Expected: 03/15/2025 (Approximate), Expires: 03/15/2026 Hemoglobin A1c Lab Routine Annual physical exam Expected: 03/15/2025 (Approximate), Expires: 03/15/2026 Comprehensive metabolic panel Lab Routine Annual physical exam Expected: 03/15/2025 (Approximate), Expires: 03/15/2026 documented as of this encounter Visit Diagnoses Diagnosis Annual physical exam Routine general medical examination at a health care facility documented in this encounter Care Teams Assistant Inventory Manager Relationship Specialty Start Date End Date Seamus Red MD [address] [place] [address] PCP - General Family Medicine 05/18/24 Seamus Red MD [address] [place] [address] PCP - [place] [employer] 01/26/25 documented as of this encounter
--- OUTSIDE RECORDS SUMMARY | 2025-03-23 06:55 | XMS_ITS | Encounter Summary ---
Author Organization [facility] Address [address] [place] [address] Care Team Providers Care Barrel Handler Name Role Phone Denice Pedro DO Primary Care Provider Unav ailable Seamus Red MD Primary Care Provider [phone] Seamus Red MD Unavailable Encounter Details Date Type Department Care Team (Late st Contact Info) Description 01/22/2024 Clinisync Result Encounter [facility] External Department Unsolicited Provider, Generic External Data Social History Tobacco Use Types Packs/Day Years Used Date Smoking Tobacco: Never Assessed Comments Unknown Sex and Gender Information Value Date Recorded Sex Assigned at Female 05/17/2024 2:11 PM EDT Legal Sex Female 7:27 PM EDT Gender Identity Female 05/17/2024 2:11 PM EDT Sexual Orientation Not on file documented as of this encounter Plan of Treatment Not on file documented as of this encounter Procedures Procedure Name Priority Date/Time Associated Diagnosis Comments MM TOMOSYNTHESIS SCREENING BI 01/22/2024 9:20 AM EDT documented in this encounter Results * MM TOMOSYNTHESIS SCREENING BI (01/22/2024 9:20 AM EDT) Anatomical Region Laterality Modality Other 01/22/2024 9:20 AM EDT Narrative 01/22/2024 9:21 AM EDT The [address] [address] Mammography Report Signed Patient: YEIMY EDWARDS MR#: [id number] : 1985 Acct:[id number] Age/Sex: 39 / F ADM Date: 01/22/24 Loc: RAD Attending Dr: IoanaStaff Physician Barcenas Ordering Physician: Nataliia Palm M.D. Results: Date of Service: 01/22/24 Follow Up: Procedure(s): MM tomosynthesis screening BI Accession Number(s): [id number] cc: Dilan Richey M.D.; Natailia Palm M.D. Patient Name: YEIMY EDWARDS MR#: [id number] : 1985 Exam Date: 01/22/2024 Ordering Doctor: NON-STAFF PHYSICIAN RADIOLOGY REPORT PROCEDURE: MM TOMOSYNTHESIS SCREENING BI COMPARISON: MG MAMM SCREEN 3D JESS CAD, 01/12/2023. INDICATIONS: Screening Calculator Name NCI Breast Cancer Risk Assessment Tool 5 Year Breast Cancer Risk 1.20% Lifetime Breast Cancer Risk 18.60% Personal Breast Cancer No Personal Ovarian Cancer No Treatments None Family Cancers Mother with breast cancer at age 50. LOCATION: The [facility] BREAST COMPOSITION: There are scattered areas of fibroglandular density. FINDINGS: DIAGNOSTIC CATEGORY 1--NEGATIVE. NO CHANGE FROM COMPARISON ASSESSMENT. Scattered benign-appearing calcifications are present. Scattered benign-appearing lymph nodes are present. RIGHT BREAST: No significant suspicious finding. LEFT BREAST: No significant suspicious finding. RECOMMENDATIONS: ROUTINE MAMMOGRAM AND CLINICAL EVALUATION IN 12 MONTHS. PLEASE NOTE: A NORMAL MAMMOGRAM DOES NOT EXCLUDE THE POSSIBILITY OF BREAST CANCER. A CLINICALLY SUSPICIOUS PALPABLE LUMP SHOULD BE BIOPSIED. Dictated by: Radames Figueredo MD on 01/22/2024 at 09:18 Approved by: Radames Figueredo MD on 01/22/2024 at 09:19 Dictated By: Radames Figueredo M.D. Signed By: 01/22/24 0921 DD/ 9 TD/TT: Sharepoint Consultant: Procedure Note Radiology, RadiologistMD - 01/22/2024 [place] [address] Mammography Report Signed Patient: YEIMY EDWARDSMR#: [id number] : 1985Acct:[id number] Age/Sex: 39 / FADM Date: 01/22/24 Loc: RAD Attending Dr: IoanaStaff Physician Barcenas Ordering Physician: Nataliia Palm M.D.Results: Date of Service: 01/22/24Follow Up: Procedure(s): MM tomosynthesis screening BI Accession Number(s): [id number] cc: Dilan Richey M.D.; Nataliia Plam M.D. Patient Name: YEIMY EDWARDS MR#: [id number] : 1985 Exam Date: 01/22/2024 Ordering Doctor: NON-STAFF PHYSICIAN RADIOLOGY REPORT PROCEDURE: MM TOMOSYNTHESIS SCREENING BI COMPARISON: MG MAMM SCREEN 3D JESS CAD, 01/12/2023. INDICATIONS: Screening Calculator Name NCI Breast Cancer Risk Assessment Tool 5 Year Breast Cancer Risk 1.20% Lifetime Breast Cancer Risk 18.60% Personal Breast Cancer No Personal Ovarian Cancer No Treatments None Family Cancers Mother with breast cancer at age 50. LOCATION: The [facility] BREAST COMPOSITION: There are scattered areas of fibroglandulardensity. FINDINGS: DIAGNOSTIC CATEGORY 1--NEGATIVE. NO CHANGE FROM COMPARISON ASSESSMENT. Scattered benign-appearing calcifications are present. Scattered benign-appearing lymph nodes are present. RIGHT BREAST: No significant suspicious finding. LEFT BREAST: No significant suspicious finding. RECOMMENDATIONS: ROUTINE MAMMOGRAM AND CLINICAL EVALUATION IN 12 MONTHS. PLEASE NOTE: A NORMAL MAMMOGRAM DOES NOT EXCLUDE THE POSSIBILITY OFBREAST CANCER. A CLINICALLY SUSPICIOUS PALPABLE LUMP SHOULD BE BIOPSIED. Dictated by: Radames Figueredo MD on 01/22/2024 at 09:18 Approved by: Radames Figueredo MD on 01/22/2024 at 09:19 Dictated By: Radames Figueredo M.D. Signed By:01/22/24920 DD/ 9 TD/TT: Sharepoint Consultant: Generic External Data Provider [facility] Final Result documented in this encounter Visit Diagnoses Not on filedocumented in this encounter Care Teams Barrel Handler Relationship Specialty Start Date End Date Denice Pedro DO PCP - General Family Medicine 02/03/23 05/17/24 Seamus Red MD [address] [place] [address] PCP - General Family Medicine 05/18/24 Seamus Red MD [address] [place] [address] PCP - Elder Banuelos 01/26/25 documented as of this encounter
--- OUTSIDE RECORDS SUMMARY | 2025-03-23 06:55 | XMS_ITS | Clinical Summary ---
Author Organization [facility] Address [id number] [address] [place] [address] Care Team Providers Care Dermatologist Name Role Phone Unavailable Primary Care Provider Unavailabl e Social History Tobacco Use Types Packs/Day Years Used Date Smoking Tobacco: Never Assessed Comments Unknown Sex and Gender Information Value Date Recorded Sex Assigned at Not on file Legal Sex Female 5:25 PM EDT Gender Identity Not on file Sexual Orientation Not on file Plan of Treatment Not on file Medical Devices Not on file
--- OUTSIDE RECORDS SUMMARY | 2025-03-23 06:55 | XMS_ITS | Encounter Summary ---
Author Organization [facility] Address [address] [place] [address] Care Team Providers Care Shuttler Car Name Role Phone Seamus Red MD Primary Care Provider [phone] Seamus Red MD Unavailable [phone] Reason for Visit * Reason Comments Med Refill Encounter Details Date Type Department Care Team (Late st Contact Info) Description 09/16/2024 Refill [facility] [address] [place] [address] Dilan Richey MD [address] [place] [phone] Gastro-esophageal reflux disease without esophagitis; Esophageal reflux Social History Tobacco Use Types Packs/Day Years Used Date Smoking Tobacco: Never Smokeless Tobacco: Never Alcohol Use Standard Drinks/Week Comments Yes 0 (1 standard drink = 0.6 oz pur e alcohol) Comments Unknown Sex and Gender Information Value Date Recorded Sex Assigned at Female 05/17/2024 2:11 PM EDT Legal Sex Female 7:27 PM EDT Gender Identity Female 05/17/2024 2:11 PM EDT Sexual Orientation Not on file documented as of this encounter Plan of Treatment Not on file documented as of this encounter Visit Diagnoses Diagnosis Gastro-esophageal reflux disease without esophagitis Esophageal reflux documented in this encounter Care Teams Shuttler Car Relationship Specialty Start Date End Date Seamus Red MD [address] [place] [address] PCP - General Family Medicine 05/18/24 Seamus Red MD [address] [place] [address] PCP - Elder Banuelos 01/26/25 documented as of this encounter
--- OUTSIDE RECORDS SUMMARY | 2025-03-23 06:55 | XMS_ITS | Encounter Summary ---
Author Organization [facility] Address [address] [place] [address] Care Team Providers Care Delinquent Tax Collector Assistant Name Role Phone Seamus Red MD Primary Care Provider [phone] Seamus Red MD Unavailable [phone] Reason for Visit * Reason Comments Med Refill Encounter Details Date Type Department Care Team (Late st Contact Info) Description 11/03/2024 Refill [facility] [address] [place] [address] Dilan Richey MD [address] [place] [phone] Seasonal allergic rhinitis due to pollen Social History Tobacco Use Types Packs/Day Years [...] as of this encounter Visit Diagnoses Diagnosis Seasonal allergic rhinitis due to pollen documented in this encounter Care Teams Delinquent Tax Collector Assistant Relationship Specialty Start Date End Date Seamus Red MD [address] [place] [address] PCP - General Family Medicine 05/18/24 Seamus Red MD [address] [place] [address] PCP - [place] [employer] 01/26/25 documented as of this encounter
--- OUTSIDE RECORDS SUMMARY | 2025-03-23 06:55 | XMS_ITS | Clinical Summary ---
Author Organization [facility] Address [address] [place] [address] Care Team Providers Care Endoscopy Technican Name Role Phone Seamus Fuentes MD Primary Care Provider [phone] Seamus Fuentes MD Unavailable [phone] Allergies Active Allergy Reactions Criticality Noted Date Comments Erythromycin 05/18/2024 Other Reaction(s): Unknown - childhood Medications levonorgestrel-eth inyl estradiol (Lessina) 0.1-20 MG-MCG tablet 1 (one) time each day at the same time Active meclizine (Antivert) 25 MG tabletIndications: Dizziness Take 1 tablet (25 mg) by mouth 3 (three) times a day as needed for dizziness 20 tablet 3 4 05/18/20 25 Active levothyroxine (Synthroid, Levoxyl) 50 MCG tabletIndications: Adult hypothyroidism TAKE 1 TABLET BY MOUTH IN THE MORNING BEFORE A MEAL 90 tablet 3 4 Active omeprazole (PriLOSEC) [address] capsuleIndications :Gastro-esophageal reflux disease without esophagitis,Esopha geal reflux Take 1 capsule (20 mg) by mouth Daily 90 capsule 3 4 Active cetirizine (ZyrTEC) 10 MG tabletIndications: Seasonal allergic rhinitis due to pollen TAKE 1 TABLET (10 MG) BY MOUTH DAILY. 90 tablet 3 5 Active ibuprofen 800 MG tabletIndications: Polyarthralgia Take 1 tablet (800 mg) by mouth every 6 (six) hours if needed for mild pain 90 tablet 3 5 02/15/20 26 Active Active Problems Problem Noted Date Diagnosed Date Adult hypothyroidism 11/26/2023 Gastroesophageal reflux disease without esophagi tis 11/26/2023 Seasonal allergic rhinitis due to pollen 024 Encounters Date Type Department Care Team Description 03/14/2025 Telephone [facility] [address] [place] [id number] Seamus Fuentes MD Care Coordination 02/09/2025 Refill [facility] [address] [place] [address] BrownDyan correa Polyarthralgia 02/08/2025 Clinisync Result Encounter [facility] Unsolicited Provider, Generic External Data from Last 3 Months Social History Tobacco Use Types Packs/Day Years Used Date Smoking Tobacco: Never Smokeless Tobacco: Never Tobacco Cessation:Counseling Given: Not Answered Alcohol Use Standard Drinks/Week Comments Yes 0 (1 standard drink = 0.6 oz pur e alcohol) Comments No Sex and Gender Information Value Date Recorded Sex Assigned at Female 05/17/2024 2:11 PM EDT Legal Sex Female 7:27 PM EDT Gender Identity Female 05/17/2024 2:11 PM EDT Sexual Orientation Not on file Last Filed Vital Signs Vital Sign Reading Time Taken Comments Blood Pressure 114/82 12/06/2024 8:58 AM EDT Pulse 67 12/06/2024 8:58 AM EDT Temperature 36.8 C (98.2 F) 12/06/2024 8:58 AM EDT Respiratory Rate - - Oxygen Saturation 98% 12/06/2024 8:58 AM EDT Inhaled Oxygen Concentration - - Weight 81.9 kg (180 lb 9.6 oz) 12/06/2024 8:58 A M EDT Height 162.6 cm (5' 4 ) 12/06/2024 8:58 AM EDT Body Mass Index 31 12/06/2024 8:58 AM EDT Plan of Treatment Health Maintenance Due Date Last Done Comments Pap Smear 01/11/2004 Cervical Cancer Screening 2013 HPV/Cotest 2013 Mammogram 02/08/2026 02/08/2025, 01/22/2024, 12/28 Influenza Vaccine Completed 06/28/2024 Procedures Procedure Name Priority Date/Time Associated Diagnosis Comments MM TOMOSYNTHESIS SCREENING BI 02/08/2025 9:52 AM EDT from Last 3 Months Results * MM TOMOSYNTHESIS SCREENING BI (02/08/2025 9:52 AM EDT) Anatomical Region Laterality Modality Other 02/08/2025 9:52 AM EDT Narrative 02/08/2025 9:53 [place] [address] Mammography Report Signed Patient: YEIMY EDWARDS MR#: [id number] : 1985 Acct:[id number] Age/Sex: 40 / F ADM Date: 02/08/25 Loc: MAMMO Attending Dr: Abby Smallwood NP Ordering Physician: Abby Smallwood NP Results: Date of Service: 02/08/25 Follow Up: Procedure(s): MM tomosynthesis screening BI Accession Number(s): [id number] cc: SEAMUS FUNETES ; Abby Smallwood NP Patient Name: YEIMY EDWARDS MR#: [id number] : 1985 Exam Date: 02/08/2025 Ordering Doctor: ABBY SMALLWOOD RADIOLOGY REPORT PROCEDURE: MM TOMOSYNTHESIS SCREENING BI COMPARISON: MM TOMOSYNTHESIS SCREENING BI, 01/22/2024. MG MAMM SCREEN 3D JESS CAD, 01/12/2023. INDICATIONS: SCREENING Calculator Name NCI Breast Cancer Risk Assessment Tool 5 Year Breast Cancer Risk 1.30% Lifetime Breast Cancer Risk 18.50% Personal Breast Cancer No Personal Ovarian Cancer No Treatments None Family Cancers Mother with breast cancer at age 50. LOCATION: [facility] BREAST COMPOSITION: There are scattered areas of fibroglandular density. FINDINGS: DIAGNOSTIC CATEGORY 2--BENIGN FINDING: RIGHT BREAST: No significant suspicious finding. Punctate benign-appearing calcifications are present. Benign-appearing lymph nodes are noted along the chest wall. LEFT BREAST: No significant suspicious finding. Punctate benign-appearing calcifications are present. Benign-appearing lymph nodes are noted along the chest wall. RECOMMENDATIONS: ROUTINE MAMMOGRAM AND CLINICAL EVALUATION IN 12 MONTHS. PLEASE NOTE: A NORMAL MAMMOGRAM DOES NOT EXCLUDE THE POSSIBILITY OF BREAST CANCER. A CLINICALLY SUSPICIOUS PALPABLE LUMP SHOULD BE BIOPSIED. Dictated by: Erick Alvarenga MD on 02/08/2025 at 09:48 Approved by: Erick Alvarenga MD on 02/08/2025 at 09:52 Dictated By: Erick Alvarenga M.D. Signed By: 02/08/25 0953 DD/ TD/TT: White Shoe Examiner: Procedure Note Radiology, Radiologist, MD - 02/08/2025 [place] [address] Mammography Report Signed Patient: YEIMY EDWARDSMR#: [id number] : 1985Acct:[id number] Age/Sex: 40 / FADM Date: 02/08/25 Loc: MAMMO Attending Dr: Abby Smallwood TELEPHONE EXCHANGE OPERATOR Ordering Physician: Abby Smallwoodults: Date of Service: 02/08/25Follow Up: Procedure(s): MM tomosynthesis screening BI Accession Number(s): [id number] cc: SEAMUS FUENTES ; Abby Smallwood NP Patient Name: YEIMY EDWARDS MR#: [id number] : 1985 Exam Date: 02/08/2025 Ordering Doctor: ABBY SMALLWOOD RADIOLOGY REPORT PROCEDURE: MM TOMOSYNTHESIS SCREENING BI COMPARISON: MM TOMOSYNTHESIS SCREENING BI, 01/22/2024. MG MAMM [id number] JESS CAD, 01/12/2023. INDICATIONS: SCREENING Calculator Name NCI Breast Cancer Risk Assessment Tool 5 Year Breast Cancer Risk 1.30% Lifetime Breast Cancer Risk 18.50% Personal Breast Cancer No Personal Ovarian Cancer No Treatments None Family Cancers Mother with breast cancer at age 50. LOCATION: [facility] BREAST COMPOSITION: There are scattered areas of fibroglandulardensity. FINDINGS: DIAGNOSTIC CATEGORY 2--BENIGN FINDING: RIGHT BREAST: No significant suspicious finding. Punctatebenign-appearing calcifications are present. Benign-appearing lymph nodes are noted alongthe chest wall. LEFT BREAST: No significant suspicious finding. Punctatebenign-appearing calcifications are present. Benign-appearing lymph nodes are noted alongthe chest wall. RECOMMENDATIONS: ROUTINE MAMMOGRAM AND CLINICAL EVALUATION IN 12 MONTHS. PLEASE NOTE: A NORMAL MAMMOGRAM DOES NOT EXCLUDE THE POSSIBILITY OFBREAST CANCER. A CLINICALLY SUSPICIOUS PALPABLE LUMP SHOULD BE BIOPSIED. Dictated by: Erick Alvarenga MD on 02/08/2025 at 09:48 Approved by: Erick Alvarenga MD on 02/08/2025 at 09:52 Dictated By: Erick Alvarenga M.D. Signed By:02/08/2553 DD/ TD/TT: White Shoe Examiner: Generic External Data Provider [facility] Final Result from Last 3 Months Insurance BS Care Teams Endoscopy Technican Relationship Specialty Start Date End Date Seamus Fuentes MD [address] [place] [address] PCP - General Family Medicine 05/18/24 Seamus Fuentes MD [address] [place] [address] PCP - [facility] 01/26/25
--- OUTSIDE RECORDS SUMMARY | 2025-03-23 06:56 | XMS_ITS | CCD ---
Author Organization [facility] Care Team Providers Care Cigarette Roller Name Role Phone ShaiDenice leonardo Ada Primary Care Physician QUANG, DR JUAREZ Admitting Unavailable QUANG, DR JUAREZ Attending Unavailable NADJOSE, DR NYDIA Valentine Primary Care Unavailable QUANG, DR JUAREZ Consulting Unavailable WEST, DR TROY Pineda Consulting Unavailable LAUREL, ANASTACIO Admitting Unavailable LAUREL, ANASTACIO Attending Unavailable LAUREL, ANASTACIO Consulting Unavailable ALEXUS ., DR MALLORY Admitting Unavailable HOY ., DR MALLORY Attending Unavailable HOY ., DR MALLORY Consulting Unavailable NADJOSE, DR NYDIA Valentine Admitting Unavailable NADCHRISTINAR, DR NYDIA Valentine Attending Unavailable JUAN JOSE, DR NYDIA Valentine Primary Care Unavailable JUAN JOSE, DR NYDIA Valentine Consulting Unavailable Laurent Fuentes MD Primary Care Provider [phone] LAURENT FUENTES Attending Unavailable LAURENT FUENTES Attending Unavailable Abby Patterson Attending Unavailable Laurent Fuentes MD Unavailable [phone] Allergies Allergy Classification Reported Allergen(s) Allergy Type Date of Onset Reaction(s) Facility (11 sources) Erythromycin; Translations: [erythromycin] Drug Allergy 05-18-2024 [facility] (1 source) Erythromycin Drug Allergy 07-24-[address] [facility] Repository Medications Current Medications Medication Drug Class(es) Dates Sig (Normalized) Sig (Original) cetirizine hydrochloride 10 mg oral tablet (10 sources) Histamine-1 Receptor Antagonist Start: 11-26-2023 End: 11-08-2024 take 1 tablet by mouth once daily cetirizine (ZyrTEC) 10 MG tablet Indications: Seasonal allergic rhinitis due to pollen TAKE 1 TABLET (10 MG) BY MOUTH DAILY. 90 tablet 3 11/08/2024 Active ethinyl estradiol 0.02 mg / levonorgestrel 0.1 mg oral tablet (8 sources) Progestin, Estrogen, Progestin-containi ng Intrauterine Device levonorgestrel-ethi nyl estradiol (Lessina) 0.1-20 MG-MCG tablet 1 (one) time each day at the same time Active ibuprofen 800 mg oral tablet (9 sources) Nonsteroidal Anti-inflammatory Drug Start: 05-18-2024 End: 02-14-2026 take 1 tablet by mouth every six hours for pain ibuprofen 800 MG tablet Indications: Polyarthralgia Take 1 tablet (800 mg) by mouth every 6 (six) hours if needed for mild pain 90 tablet 3 02/14/2025 02/14/2026 Active levothyroxine sodium 0.05 mg oral tablet (11 sources) l-Thyroxine Start: 06-08-2024 End: 09-23-2024 take 1 tablet by mouth before mealtime levothyroxine (Synthroid, Levoxyl) 50 MCG tablet Indications: Adult hypothyroidism TAKE 1 TABLET BY MOUTH IN THE MORNING BEFORE A MEAL 90 tablet 3 09/23/2024 Active Start: 11-25-2023 take 1 tablet by jewell th once daily levothyroxine (Synthroid, Levoxyl) 25 MCG tablet Indications: Gastro-esophageal reflux disease without esophagitis , Esophageal reflux Take 1 tablet (25 mcg) by mouth Daily 90 tablet 3 11/25/2023 Active meclizine hydrochloride 25 mg oral tablet (9 sources) Antiemetic Start: 05-18-2024 End: 05-18-2025 take [...] omeprazole 20 mg delayed release oral capsule (10 sources) Proton Pump Inhibitor Start: 11-25-2023 End: 09-23-2024 take 1 capsule by mouth once daily omeprazole (PriLOSEC) [address] capsule Indications: Gastro-esophageal reflux disease without esophagitis , Esophageal reflux Take 1 capsule (20 mg) by mouth Daily 90 capsule 3 09/23/2024 Active Problems Active Problems Problem Classification Problem Date Documented Date Episodic/Chronic Esophageal disorders (11 sources) Gastroesophageal reflux disease without esophagitis; Translations: [Gastro-esophageal reflux disease without esophagitis] Onset: 11-26-2023 11-26-2023 Chronic Other non-traumatic joint disorders (1 source) Multiple joint pain; Translations: [Pain in unspecified joint] 02-09-2025 Episodic Other screening for suspected conditions (not mental disorders or infectious disease) (4 sources) Encounter for screening mammogram for malignant neoplasm of breast; Translations: [ENC SCR MAMMO MALIG NEOPLASM BREAST] Onset: 01-12-2023 Episodic Other upper respiratory disease (10 sources) Allergic rhinitis due to pollen; Translations: [Allergic rhinitis due to pollen] Onset: 11-26-2023 11-26-2023 Chronic Residual codes; unclassified (1 source) Family history of malignant neoplasm of breast; Translations: [FAMILY HX MALIG NEOPLASM OF BREAST] Onset: 01-20-2023 Episodic Thyroid disorders (11 sources) Hypothyroidism; Translations: [Hypothyroidism, unspecified] Onset: 11-26-2023 08-09-2024 Chronic Past or Other Problems Problem Classification Problem Date Documented Da te Episodic/Chronic Administrative/social admission (4 sources) Encounter for pre-employment examination; Translations: [ENCOUNTER FOR PRE-EMPLOYMENT EXAM] Onset: 03-26-2022 Episodic Results Test Name Value Interpretation Reference Range Facility MM TOMOSYNTHESIS SCREENING B Ion 02-08-2025 [place] [address] Mammography Report Signed Patient: YEIMY EDWARDS MR#: [id number] : 1985 Acct:[id number] Age/Sex: 40 / F ADM Date: 02/08/25 Loc: MAMMO Attending Dr: Abby Patterson NP Ordering Physician: Abby Patterson NP Results: Date of Service: 02/08/25 Follow Up: Procedure(s): MM tomosynthesis screening BI Accession Number(s): [id number] cc: LAURENT FUENTES ; Abby Patterson NP Patient Name: YEIMY EDWARDS MR#: [id number] : 1985 Exam Date: 02/08/2025 Ordering Doctor: ABBY PATTERSON RADIOLOGY REPORT PROCEDURE: MM TOMOSYNTHESIS SCREENING BI COMPARISON: MM TOMOSYNTHESIS SCREENING BI, 01/22/2024. MG MAMM SCREEN 3D JESS CAD, 01/12/2023. INDICATIONS: SCREENING Calculator Name NCI Breast Cancer Risk Assessment Tool 5 Year Breast Cancer Risk 1.30% Lifetime Breast Cancer Risk 18.50% Personal Breast Cancer No Personal Ovarian Cancer No Treatments None Family Cancers Mother with breast cancer at age 50. LOCATION: [facility] BREAST COMPOSITION: There are scattered areas [...] Alvarenga M.D. Signed By: 02/08/25 0953 DD/ 0952 TD/TT: Painter Apprentice: [facility] Radiology, Radiologist, - 02/08/2025 [place] [address] Mammography Report Signed Patient: YEIMY EDWARDS MR#: [id number] : 1985 Acct:[id number] Age/Sex: 40 / F ADM Date: 02/08/25 Loc: MAMMO Attending Dr: Abby Patterson NP Ordering Physician: Abby Patterson NP Results: Date of Service: 02/08/25 Follow Up: Procedure(s): MM tomosynthesis screening BI Accession Number(s): [id number] cc: LAURENT FUENTES ; Abby Patterson NP Patient Name: YEIMY EDWARDS MR#: [id number] : 1985 Exam Date: 02/08/2025 Ordering Doctor: ABBY PATTERSON RADIOLOGY REPORT PROCEDURE: MM TOMOSYNTHESIS SCREENING BI COMPARISON: MM TOMOSYNTHESIS SCREENING BI, 01/22/2024. MG MAMM SCREEN 3D JESS CAD, 01/12/2023. INDICATIONS: SCREENING Calculator Name NCI Breast Cancer Risk Assessment Tool 5 Year Breast Cancer Risk 1.30% Lifetime Breast Cancer Risk 18.50% Personal Breast Cancer No Personal Ovarian Cancer No Treatments None Family Cancers Mother with breast cancer at age 50. LOCATION: [facility] BREAST COMPOSITION: There are scattered areas [...] Alvarenga M.D. Signed By: 02/08/25 0953 DD/ 0952 TD/TT: Painter Apprentice: [facility] Radiology Study observation (narrative) [facility] MM TOMOSYNTHESIS SCREENING B IOrdered By: Radiologist Radiology on 02-08-2025 [facility] Work Phone: PAP [phone] 01-30-2025 Cytology report Cyto stain Doc (Cvx/Vag) Note Invalid Interpretation Code [facility] Comment on above: Result Comment: TEST S RESULT FLAG UNITS REF RANGE LAB Clinician Provided Cytology Information Source.............[employer] No. of containers..01 ThinPrep Vial DIAGNOSIS: 01 NEGATIVE FOR INTRAEPITHELIAL LESION OR MALIGNANCY. FUNGAL ORGANISMS MORPHOLOGICALLY CONSISTENT WITH ANG SPECIES ARE PRESENT. CELLULAR CHANGES ASSOCIATED WITH INFLAMMATION ARE PRESENT. Specimen adequacy: 01 Satisfactory for evaluation. No endocervical component is identified. Performed by: 01 Humza Valdes, Stock Lifter ([facility]) . 01 Note: Note 01 The Pap [...] <-Panic Low,>-Panic High,A-Abnormal,AA-Critical Abnormal Performed at: [address] [address] Orin Acharya MD, Performed By: #### 3 [id number] #### [facility] [address] [place] [address] HPV 16+18+31+33+35+39+4 5+51+52+56+58+59+66 +68 DNA Probe+sig amp Ql (Cvx) Negative Invalid Interpretation Code Negative [facility] Comment on above: Result Comment: This nucleic acid amplification test detects fourteen high-risk HPV types (16,18,31,33,35,39,45,51,52,56,58,59,66,68) without differentiation. Performed at: [facility] [address], [place] [id number] MD Patrizia Sr Performed at: =G [facility] [address] [facility], [place] [id number] MD Patrizia Sr Performed By: #### 3 [id number] #### [facility] [address] [place] [address] PAP [phone] 01-25-2025 Collection Technique BRUSH-SPATULA Normal [facility] Comment on above: Performed By: #### 3 [id number] #### [facility] [address] [place] [address] Gynecological Body Site ENDOCERVIX Normal [facility] Comment on above: Performed By: #### 3 [id number] #### [facility] [address] [id number] ALL THYROXINE (T4) FREEon Free T4 [Mass/Vol] 0.97 ng/dL 0.76 - 1. 46 ng/dL [facility] ALL CBC WITH AUTO DIFFon BASOPHILS ABSOLUTE AUTO 0.0 [facility] Basophils/100 WBC (Bld) 0.3 % 0.2 - 2.0 % [facility] Eosinophils/100 WBC (Bld) 3.0 % 0.9 - 7.0 % [facility] Erythrocyte distribution width (RBC) [Ratio] 13.2 % 11.0 - 15.0 % [facility] Hematocrit (Bld) [Volume fraction] 37.3 % 36.0 - 48.0 % [facility] Hemoglobin (Bld) [Mass/Vol] 13.1 g/dL 12.0 - 16.0 g/dL [facility] IMMATURE GRANULOCYTES ABS AUTO 0.02 [facility] Immature granulocytes/100 WBC (Bld) 0.3 % 0.0 - 0.5 % [facility] LYMPHOCYTES ABSOLUTE AUTO 1.9 [facility] Lymphocytes/100 WBC (Bld) 28.5 % 20.5 - 60.0 % [facility] MCH (RBC) [Entitic mass] 31.0 pg 26.7 - 34.0 pg [facility] MCHC (RBC) [Mass/Vol] 35.1 g/dL 29.9 - 35.2 g/dL [facility] MCV (RBC) [Entitic vol] 88.4 fL 81.0 - 99.0 fL [facility] MONOCYTES ABSOLUTE AUTO 0.5 [facility] Monocytes/100 WBC (Bld) 7.8 % 1.7 - 12.0 % [facility] NEUTROPHILS ABSOLUTE AUTO 4.1 [facility] Neutrophils/100 WBC (Bld) 60.1 % 43.0 - 75.0 % [facility] Platelet mean volume (Bld) [Entitic vol] 10.2 fL 9.5 - 13.5 fL [facility] TBH EO # 0.2 [facility] TB PLT [address] [facility] RBC 4.[address] [facility] WBC 6.8 [facility] MG MAMM SCREEN 3D JESS CADon 01-12-2023 MG MAMM SCREEN 3D JESS CAD Patient: YEIMY EDWARDS Exam Date: 01/12/2023 : 1985 Gender:F Ordering : DR LARRY DEL RIO M.D. Admission #: [id number] Family : Order #: [id number] CLICK HERE TO VIEW EXAM RADIOLOGY REPORT PROCEDURE: MAMMOGRAM SCREENING 3D BILATERAL CAD COMPARISON: None. INDICATIONS: Family history of malignant neoplasm of breast Calculator Name NCI Breast Cancer Risk Assessment Tool 5 Year Breast Cancer Risk 1.10% Lifetime Breast Cancer Risk 18.80% Personal Breast Cancer No Personal Ovarian Cancer No Treatments None Family Cancers Mother with breast cancer at age 50. LOCATION: [facility] BREAST COMPOSITION: Scattered areas [...] MD on 01/12/2023 at 10:40 Normal [facility] CBC AUTO DIFFon 12-30-2022 BASO # 0.0 103/ul Normal 0.0-0.[address] [facility] Comment on above: Performed By: #### C BC #### [facility] [address] [place] [address] Dr. Josephine Dutta Basophils/100 WBC (Bld) 0.4 % Normal 0.2-2.[address] [facility] Comment on above: Performed By: #### C BC #### [facility] [address] [place] [address] Dr. Josephine Dutta EO # 0.2 103/ul Normal 0.0-0.[address] [facility] Comment on above: Performed By: #### C BC #### [facility] [address] [place] [address] Dr. Josephine Dutta Eosinophils/100 WBC (Bld) 3.2 % Normal 0.9-7.0 [facility] Comment on above: Performed By: #### C BC #### [facility] [address] [place] [address] Dr. Josephine Dutta Erythrocyte distribution width (RBC) [Ratio] 12.9 % Normal 11.0-15.0 [facility] Comment on above: Performed By: #### C BC #### [facility] [address] [place] [address] Dr. Josephine Dutta Hematocrit (Bld) [Volume fraction] 40.9 % Normal 36.0-48.0 [facility] Comment on above: Performed By: #### C BC #### [facility] [address] [place] [address] Dr. Josephine Dutta Hemoglobin (Bld) [Mass/Vol] 14.5 g/dL Normal 12.0-16.[address] [facility] Comment on above: Performed By: #### C BC #### [facility] [address] [place] [address] Dr. Josephine Dutta IG # 0.03 10e3/ul Normal 0.00-0.03 [facility] Comment on above: Performed By: #### C BC #### [facility] [address] [place] [address] Dr. Josephnie Dutta IG % 0.4 % Normal 0.0-0.5 [facility] Comment on above: Performed By: #### C BC #### [facility] [address] [place] [address] Dr. Josephine Dutta LYMPH # 2.1 103/ul Normal 1.2-3.8 [facility] Comment on above: Performed By: #### C BC #### [facility] [address] [place] [address] Dr. Josephine Dutta Lymphocytes/100 WBC (Bld) 29.1 % Normal 20.5-60.0 [facility] Comment on above: Performed By: #### C BC #### [facility] [address] [place] [address] Dr. Josephine Dutta MANUAL DIFF REQ NO Normal [facility] Comment on above: Performed By: #### C BC #### [facility] [address] [place] [address] Dr. Josephine Dutta MCH (RBC) [Entitic mass] 31.0 pg Normal 26.7-34.0 [facility] Comment on above: Performed By: #### C BC #### [facility] [address] [place] [address] Dr. Josephine Dutta MCHC (RBC) [Mass/Vol] 35.5 g/dL Critically high 29.9-35.2 [facility] Comment on above: Performed By: #### C BC #### [facility] [address] [place] [address] Dr. Josephine Dutta MCV (RBC) [Entitic vol] 87.6 fL Normal 81.0-99.0 [facility] Comment on above: Performed By: #### C BC #### [facility] [address] [place] [address] Dr. Josephine Dutta MONO # 0.7 103/ul Normal 0.3-0.8 [facility] Comment on above: Performed By: #### C BC #### [facility] [address] [place] [address] Dr. Josephine Dutta Monocytes/100 WBC (Bld) 9.3 % Normal 1.7-12.0 [facility] Comment on above: Performed By: #### C BC #### [facility] [address] [place] [address] Dr. Josephine Dutta NEUT # 4.1 103/ul Normal 1.4-6.5 [facility] Comment on above: Performed By: #### C BC #### [facility] [address] [place] [address] Dr. Josephine Dutta Neutrophils/100 WBC (Bld) 57.6 % Normal 43.0-75.0 [facility] Comment on above: Performed By: #### C BC #### [facility] [address] [place] [address] Dr. Josephine Dutta Platelet mean volume (Bld) [Entitic vol] 9.6 fL Normal 9.5-13.5 [facility] Comment on above: Performed By: #### C BC #### [facility] [address] [place] [address] Dr. Josephine Dutta PLT 211 103/ul Normal 150-450 [facility] Comment on above: Performed By: #### C BC #### [facility] [address] [place] [address] Dr. Josephine Dutta RBC 4.67 106/ul Normal 4.20-5.40 [facility] Comment on above: Performed By: #### C BC #### [facility] [address] [place] [address] Dr. Josephine Dutta WBC 7.1 103/ul Normal 4.0-11.0 [facility] Comment on above: Performed By: #### C BC #### [facility] [address] [place] [address] Dr. Josephine Dutta GLYCOHEMOGLOBIN A1Con 2022 ADA RECOMMENDATION SEE BELOW Normal [facility] Comment on above: Result Comment: ADA RECOMMENDED LIMIT 4.0 - 6.0 ADA THERAPEUTIC TARGET < 7.0 ACTION SUGGESTED > 7.0 Performed By: #### A 1C #### [facility] [address] [place] [address] Dr. Josephine Dutta Glucose [Mass/Vol] 77 mg/dL Normal [facility] Comment on above: Performed By: #### A 1C #### [facility] [address] [address] [address] Josephine Dutta HbA1c (Bld) [Mass fraction] 4.3 % Critically low 4.5-6.2 [facility] Comment on above: Performed By: #### A 1C #### [facility] [address] [address] [address] Josephine Dutta LIPID PROFILEon 12-30-2022 CHOL-HDL RATIO NORM SEE BELOW Normal [facility] Comment on above: Result Comment: 3.3 - 4.4 LOW RISK 4.4 - 7.1 AVERAGE RISK 7.1 - 11.0 MODERATE RISK >11.0 HIGH RISK Performed By: #### C MP, LIPID, TSH #### [facility] [address] [address] [address] Josephine Dutta Cholesterol [Mass/Vol] 176 mg/dL Normal <=200 [facility] Comment on above: Performed By: #### C MP, LIPID, TSH #### [facility] [address] [address] [address] Josephine Dutta Cholesterol in HDL [Mass/Vol] 50 mg/dL Normal 40-60 [facility] Comment on above: Performed By: #### C MP, LIPID, TSH #### [facility] [address] [address] [address] Josephine Dutta Cholesterol in LDL [Mass/Vol] 99.0 mg/dL Normal [facility] Comment on above: Performed By: #### C MP, LIPID, TSH #### [facility] [address] [address] [address] Josephine Dutta Cholesterol.total/C holesterol in HDL [Mass ratio] 3.5 {ratio} Normal [facility] Comment on above: Performed By: #### C MP, LIPID, TSH #### [facility] [address] [address] [address] Josephine Dutta HDL NORMAL > or = 60 mg/dl - LO W CARDIOVASCULAR RISK <40 mg/dl - HIGH CARDIOVASCULAR RISK Normal [facility] Comment on above: Performed By: #### C MP, LIPID, TSH #### [facility] [address] [address] [address] Josephine Dutta LDL CALC NORMAL SEE BELOW Normal [facility] Comment on above: Result Comment: <100 mg/dl OPTIMAL 100 - 129 mg/dl NEAR OR ABOVE OPTIMAL 130 - 159 mg/dl BORDERLINE HIGH 160 - 189 mg/dl HIGH >190 mg/dl VERY HIGH Performed By: #### C MP, LIPID, TSH #### [facility] [address] [address] [address] Josephine Dutta Triglyceride [Mass/Vol] 135 mg/dL Normal <=[address] [facility] Comment on above: Performed By: #### C MP, LIPID, TSH #### [facility] [address] [address] [address] Josephine Dutta VLDL CALC 27.0 mg/dL Normal [facility] Comment on above: Performed By: #### C MP, LIPID, TSH #### [facility] [address] [address] [address] Josephine Dutta PROF 14(COMP METB)on 023 Albumin [Mass/Vol] 4.1 g/dL Normal 3.4-5.0 [facility] Comment on above: Performed By: #### C MP, LIPID, TSH #### [facility] [address] [address] [address] Josephine Dutta Albumin/Globulin [Mass ratio] 1.2 {ratio} Normal [facility] Comment on above: Performed By: #### C MP, LIPID, TSH #### [facility] [address] [address] [address] Josephine Dutta ALP [Catalytic activity/Vol] 44 U/L Critically low 46-[address] [facility] Comment on above: Performed By: #### C MP, LIPID, TSH #### [facility] [address] [address] [address] Josephine Dutta ALT [Catalytic activity/Vol] 34 U/L Normal 14-59 [facility] Comment on above: Performed By: #### C MP, LIPID, TSH #### [facility] [address] [address] [address] Josephine Dutta Anion gap [Moles/Vol] 13.6 mmol/L Normal [facility] Comment on above: Performed By: #### C MP, LIPID, TSH #### [facility] [address] [address] [address] Josephine Dutta AST [Catalytic activity/Vol] 24 U/L Normal 15-[address] [facility] Comment on above: Performed By: #### C MP, LIPID, TSH #### [facility] [address] [address] [address] Josephine Dutta Bilirubin [Mass/Vol] 1.0 mg/dL Normal 0.2-1.0 [facility] Comment on above: Performed By: #### C MP, LIPID, TSH #### [facility] [address] [address] [address] Josephine Dutta Calcium [Mass/Vol] 9.4 mg/dL Normal 8.5-10.1 [facility] Comment on above: Performed By: #### C MP, LIPID, TSH #### [facility] [address] [address] [address] Josephine Dutta Chloride [Moles/Vol] 99 mmol/L Normal 98-107 [facility] Comment on above: Performed By: #### C MP, LIPID, TSH #### [facility] [address] [address] [address] Josephine Dutta CO2 [Moles/Vol] 27.5 mmol/L Normal 21.0-32.0 [facility] Comment on above: Performed By: #### C MP, LIPID, TSH #### [facility] [address] [address] [address] Josephine Dutta Creatinine [Mass/Vol] 0.66 mg/dL Normal 0.55-1.02 [facility] Comment on above: Performed By: #### C MP, LIPID, TSH #### [facility] [address] [address] [address] Josephine Dutta EGFR-AF ARMENIAN >60 Normal >=60 [facility] Comment on above: Performed By: #### C MP, LIPID, TSH #### [facility] [address] [address] [address] Josephine Dutta EGFR-NON AF ARMENIAN >60 Normal >=60 [facility] Comment on above: Performed By: #### C MP, LIPID, TSH #### [facility] [address] [address] [address] Josephine Dutta Globulin (S) [Mass/Vol] 3.3 g/dL Normal [facility] Comment on above: Performed By: #### C MP, LIPID, TSH #### [facility] [address] [address] [address] Josephine Dutta Glucose [Mass/Vol] 85 mg/dL Normal 74-106 [facility] Comment on above: Performed By: #### C MP, LIPID, TSH #### [facility] [address] [address] [address] Josephine Dutta Potassium [Moles/Vol] 4.1 mmol/L Normal 3.5-5.1 [facility] Comment on above: Performed By: #### C MP, LIPID, TSH #### [facility] [facility] [address] [address] [address] Josephine Dutta Protein [Mass/Vol] 7.4 g/dL Normal 6.4-8.2 [facility] Comment on above: Performed By: #### C MP, LIPID, TSH #### [facility] [address] [address] [address] Josephine Dutta Sodium [Moles/Vol] 136 mmol/L Normal 136-145 [facility] Comment on above: Performed By: #### C MP, LIPID, TSH #### [facility] [address] [address] [address] Josephine Dutta Urea nitrogen [Mass/Vol] 12.0 mg/dL Normal 7.0-18.0 [facility] Comment on above: Performed By: #### C MP, LIPID, TSH #### [facility] [address] [address] [address] Josephine Dutta Urea nitrogen/Creatinine [Mass ratio] 18.2 mg/mg Normal [facility] Comment on above: Performed By: #### C MP, LIPID, TSH #### [facility] [address] [place] [address] Dr. Josephine Dutta TSHon 12-30-2022 TSH 5.052 uIU/mL Critically high 0.358-3.740 [facility] Comment on above: Performed By: #### C MP, LIPID, TSH #### [facility] [address] [place] [address] Dr. Josephine Dutta QUANTIFERON TB GOLD PLUSon 0 03-28-2022 QuantiFERON Criteria Comment [facility] Comment on above: Result Comment: The QuantiFERON-TB Gold Plus result is determined by subtracting the Nil value from either TB antigen (Ag) tube. The mitogen tube serves as a control for the test. Performed By: #### Q NTTB #### [facility] [address] [place] [address] Dr. Josephine Dutta QuantiFERON Incubation Incubation performed. Normal [facility] Comment on above: Performed By: #### Q NTTB #### [facility] [address] [place] [address] Dr. Josephine Dutta QuantiFERON Mitogen Value >10.00 [facility] Comment on above: Performed By: #### Q NTTB #### [facility] [address] [place] [address] Dr. Josephine Dutta QuantiFERON Nil Value 0.00 IU/mL [facility] Comment on above: Performed By: #### Q NTTB #### [facility] [address] [place] [address] Dr. Josephine Dutta QuantiFERON TB1 Ag Value 0.00 IU/mL [facility] Comment on above: Performed By: #### Q NTTB #### [facility] [address] [place] [address] Dr. Josephine Dutta QuantiFERON TB2 Ag Value 0.01 IU/mL [facility] Comment on above: Performed By: #### Q NTTB #### [facility] [address] [place] [address] Dr. Josephine Dutta QuantiFERON-TB Gold Plus Negative Normal Negative [facility] Comment on above: Result Comment: Chem iluminescence immunoassay methodology Performed By: #### Q NTTB #### [facility] [address] [place] [address] Dr. Josephine Dutta HEPATITIS B SURFACE ANTIBODY , QUANTon 03-27-2022 Hepatitis B Surf AB Quant >1000.0 Normal Immunity>9.9 [facility] Comment on above: Result Comment: Stat us of Immunity Anti-HBs Level Inconsistent with Immunity 0.0 - 9.9 Consistent with Immunity >9.9 Performed By: #### H EPBSRF #### [facility] [address] [place] [address] Dr. Josephine Dutta MMR IMMUNITYon 03-27-2022 Mumps Abs, IgG 94.8 AU/mL Normal Immune >10.9 [facility] Comment on above: Result Comment: Nega tive <9.0 Equivocal 9.0 - 10.9 Positive >10.9 A positive result generally indicates past exposure to Mumps virus or previous vaccination. Performed By: #### M MRIMMU #### [facility] [address] [place] [address] Dr. Josephine Dutta Rubella Antibodies, IgG 2.04 index Normal Immune >0.[address] [facility] Comment on above: Result Comment: Non- immune <0.90 Equivocal 0.90 - 0.99 Immune >0.99 Performed By: #### M MRIMMU #### [facility] [address] [place] [address] Dr. Josephine Dutta Rubeola Ab, IgG >300.0 Normal Immune >16.4 [facility] Comment on above: Result Comment: Nega tive <13.5 Equivocal 13.5 - 16.4 Positive >16.4 Presence of antibodies to Rubeola is presumptive evidence of immunity except when acute infection is suspected. Performed By: #### M MRIMMU #### [facility] [address] [place] [address] Dr. Josephine Dutta VARICELLA IGG ABon 2 Varicella Zoster IgG 964 index Normal Immune >[address] [facility] Comment on above: Result Comment: Nega tive <135 Equivocal 135 - 165 Positive >165 A positive result generally indicates exposure to the pathogen or administration of specific immunoglobulins, but it is not indication of active infection or stage of disease. Performed By: #### V CHAUNCEY #### [facility] [address] [place], [place] [address] Dr. Josephine Dutta Encounters Encounter Date Encounter Type Care Provider Facility Start: 03-14-2025 End: 03-14-2025 Telephone encounter Laurent Fuentes MD Work Phone: [facility] Comment on above: Care Coordination Start: 02-09-2025 End: 02-14-2025 Refill Dyan Brown [facility] Comment on above: Polyarthralgia Start: 02-08-2025 End: 02-08-2025 Clinisync Result Encounter Generic External Data Provider [facility] Unsolicited Start: 02-08-2025 End: 02-08-2025 Clinisync Result Encounter Generic External Data Provider [facility] Unsolicited Start: 01-25-2025 End: 01-25-2025 ambulatory Abby Larry Patterson Facility:[facility] Start: 01-25-2025 End: 01-25-2025 Lab Drop off Abbyjuliana Briscoee [facility] Start: 12-06-2024 End: 12-06-2024 ambulatory LAURENT FUENTES Not Available Start: 11-08-2024 End: 11-08-2024 Refill Laurent Fuentes MD Work Phone: [facility] Comment on above: Seasonal allergic rh [...] examination without abnormal findings DR NYDIA INGRAM [facility] Start: 12-30-2022 End: 12-31-[address] NYDIA INGRAM Facility:[facility] Start: 12-30-2022 End: 12-31-2022 Encounter for general adult medical examination without abnormal findings DR NYDIA INGRAM Facility:[facility] Start: 12-24-2022 End: 12-24-2022 Lab Drop off Abby Patterson [facility] Start: 07-24-2022 End: 07-25-[address] MOHAMUD VAUGHAN . Facility: Start: 03-26-2022 End: 03-27-2022 ambulatory ANASTACIO BARRAGAN Facility:[facility] Procedures Date Procedure Procedure Detail Performing Clinician Start: 02-08-2025 MM TOMOSYNTHESIS SCR EENING BI Generic External Data Provider Start: 02-08-2025 Mammography Generic Pr ovider Start: 09-07-2024 ALL THYROXINE (T4) FREE Laurent Fuentes MD Work Phone: Start: 05-23-2024 ALL CBC WITH AUTO DIFF Laurent Fuentes MD Work Phone: Start: 01-22-2024 Mammography Laurent khan MD Work Phone: Plan of Treatment Date Care Activity Detail Author Start: 02-08-2026 Screening for malign ant neoplasm of breast Mammogram [facility] Start: 01-21-2025 Screening for malign ant neoplasm of breast Mammogram [facility] Start: 05-29-2024 Influenza vaccination Influenza Vacc ine (#1) [facility] Start: 05-18-2024 End: 05-18-2024 Patient encounter procedure 05/18/2024 1:45 PM EDT Office Visit [facility] [address] [place] [id number] Laurent Fuentes MD [address] [place] [address] Arrived [facility] Comment on above: Arrived Start: 2013 Screening for malign ant neoplasm of cervix [facility] Start: 01-11-2004 Screening for malign ant neoplasm of cervix Pap Smear [facility] Payers Date Payer Category Payer [employer] [id number] 2022 Unknown [id number] 2022 Unknown [id number] 1983 Unknown [id number] 2.16.84 [id number] 1983 Unknown [id number] 2.16.84 [id number] 1983 Unknown [id number] 2.16.84 [id number] 1983 Unknown [id number] 2.16.84 [id number] 1983 Unknown [id number] 2.16.8 [id number] 1959 Self-pay Unknown [id number] 2.16.84 [id number] Unknown [id number] 2.16.84 [id number] Social History Date Type Detail Facility Tobacco smoking status [facility] Start: 05-18-2024 End: 12-06-2024 Sex Assigned At Female [facility] Start: 05-18-2024 Tobacco smoking stat [facility] Never smoked tobacco [facility] Start: 05-18-2024 Tobacco use and exposure Smokeless tobacco non-user [facility] Start: 05-18-2024 End: 12-06-2024 Alcoholic beverage intake Current drinker of alcohol (finding) [facility] Start: 05-18-2024 End: 12-06-2024 History of Social function [facility] Start: 1985 Sex assigned at Female [facility] Start: 05-17-2024 Gender identity Identifies as female gender (finding) [facility] consumption unknown [facility] Start: 01-09-2010 Sex Female (finding) [facility] Clinical Notes 12-24-2022 to 03-14-2025 Telephone Encounter - [place] [facility] - 03/14/2025 3:57 PM EDTTelephone Encounter - [place] [facility] - 03/14/2025 3:57 PM EDTTelephone Encounter - Dyan Brown - 02/09/2025 1:51 PM EDT Note Date & Type Note Facility 03-14-2025 Telephone encount er Note Pt insurance has changed over with [facility], to meant there standards for the year with the labs that were drawn back in november could she have these labs created A1C, CMP, CBC. Pt also needs a wellness form to be fill out she is going to fax it over. She has it all filled out from her wellness on 12/06/2024 Pt would like for the completed form sent to her by email on form and faxed over [facility] 03-14-2025 Miscellaneous Notes Formattin g of this note might be different from the original. Pt insurance has changed over with [facility], to meant there standards for the year with the labs that were drawn back in november could she have these labs created A1C, CMP, CBC. Pt also needs a wellness form to be fill out she is going to fax it over. She has it all filled out from her wellness on 12/06/2024 Pt would like for the completed form sent to her by email on form and faxed over documented in this encounter [facility] 02-09-2025 Telephone encount er Note Pt needs refill on ibuprofen set to [facility]. [facility] 02-09-2025 Miscellaneous Notes Formattin g of this note might be different from the original. Pt needs refill on ibuprofen set to [facility]. documented in this encounter [facility] 01-25-2025 Evaluation + Plan note Diagnostic Tests PendingPAP [id number]/25/25 [facility] 12-24-2022 Evaluation + Plan note Diagnostic Tests PendingPAP [id number]/24/22 [facility] Evaluation note Diagnosis Adult hypothyroidism (CMS/HCC) Unspecified hypothyroidism [facility] Adult hypothyroidism (CMS/HCC) Unspecified hypothyroidism Gastro-esophageal reflux disease without esophagitis Esophageal reflux [facility] Diagnosis Seasonal allergic rhinitis due to pollen [facility] Diagnosis Polyarthralgia Pain in joint, multiple sites documented in this encounter [facility] Narrative No data available for this section [facility] No data available for this section [facility] No data available for this section [facility] Summary Purpose Family History No Family History Records FoundNo Family History Records Found No data available for this section No Family History Records FoundNo Family History Records Found Advance Directives No Advanced Directives Records FoundNo Advanced Directives Records FoundNo Advanced Directives Records FoundNo Advanced Directives Records Found Additional Source Comments Patient Care team informatio n (unrecognized section and content) Cigarette [employer]ler Relationship Specialty Start Date End Date Laurent Fuentes MD [address] [place] [address] PCP - General Family Medicine 05/18/24 Cigarette Roller Relationship Specialty Start Date End Date Laurent Fuentes MD [address] [place] [address] PCP - General Family Medicine 05/18/24 Cigarette Roller Relationship Specialty Start Date End Date Laurent Fuentes MD [address] [place] [address] PCP - General Family Medicine 05/18/24 Cigarette Roller Relationship Specialty Start Date End Date Laurent Fuentes MD [address] [place] [address] PCP - General Family Medicine 05/18/24 Cigarette Roller Relationship Specialty Start Date End Date Laurent Fuentes MD [address] [place] [address] PCP - General Family Medicine 05/18/24 Cigarette Roller Relationship Specialty Start Date End Date Laurent Fuentes MD [address] [place] [address] PCP - General Family Medicine 05/18/24 Cigarette Roller Relationship Specialty Start Date End Date Laurent Fuentes MD [address] [place] [address] PCP - General Family Medicine 05/18/24 Laurent Fuentes MD [address] [place] [address] PCP - [place] [employer] 01/26/25 INFORMATION SOURCE (unrecogn ized section and content) DATE CREATED AUTHOR 01/21/2023 [facility] DATE CREATED AUTHOR AUTHOR'S ORGANIZ ATION 12/08/2024 [facility] DATE CREATED AUTHOR AUTHOR'S ORGANIZ ATION 01/26/2025 [facility] DATE CREATED AUTHOR AUTHOR'S ORGANIZ ATION 02/02/2025 [facility] Reason for Visit (unrecogniz ed section and content) Reason Comments Med Refill Reason Onset Date Comments Med Refill 02/09/2025 Reason Onset Date Comments Care Coordination 03/14/2025 FOR RECORDS PERTAINING TO PATIENTS WHO ARE [...] BE BASED ON THE PRIMARY CLINICAL RECORDS. [employer] provides no warranty or guarantee of the accuracy or completeness of information in this document.
[2025-03-23 07:36] LABS: Alanine Aminotransferase 29 U/L (14-59); Albumin Globulin Ratio 1.2; Albumin Level 3.8 g/dL (3.4-5.0); Alkaline Phosphatase 48 U/L (46-116); Anion Gap 10.5; Aspartate Amino Transferase 18 U/L (15-37); BUN Creatinine Ratio 24.2; Bilirubin Total 0.9 mg/dL (0.2-1.0); Calcium 9.2 mg/dL (8.5-10.1); Carbon Dioxide 27.9 mmol/L (21.0-32.0); Chloride 106 mmol/L (98-107); Estimated GFR (African America >60 (>=60 mL/min/1.73m^2); Estimated GFR (Non-African Ame >60 (>=60 mL/min/1.73m^2); Globulin 3.1 g/dL; Glucose 94 mg/dL (74-106); Potassium 4.4 mmol/L (3.5-5.1); Sodium 140 mmol/L (136-145); Total Protein 6.9 g/dL (6.4-8.2)
[2025-03-23 08:00] LABS: Basophils Percent Auto 0.3 % (0.2-2.0); Eosinophils Absolute Auto 0.1 10^3/uL (0.0-0.7); Eosinophils Percent Auto 1.7 % (0.9-7.0); Hematocrit 39.4 % (36.0-48.0); Hemoglobin 14.2 g/dL (12.0-16.0); Immature Granulocytes Abs Auto 0.03 10^3/uL (0.00-0.03); Immature Granulocytes Pct Auto 0.5 % (0.0-0.5); Lymphocytes Absolute Auto 1.8 10^3/uL (1.2-3.8); Lymphocytes Percent Auto 27.1 % (20.5-60.0); Mean Corpuscular Hemoglobin 31.8 pg (26.7-34.0); Mean Corpuscular Volume 88.1 fL (81.0-99.0); Mean Platelet Volume 10.1 fL (9.5-13.5); Monocytes Absolute Auto 0.5 10^3/uL (0.3-0.8); Monocytes Percent Auto 7.2 % (1.7-12.0); Neutrophils Absolute Auto 4.1 10^3/uL (1.4-6.5); Neutrophils Percent Auto 63.2 % (43.0-75.0); Platelet Count 221 10^3/uL (150-450); Red Blood Count 4.47 10^6/uL (4.20-5.40); Red Cell Distribution Width 13.1 % (11.0-15.0); White Blood Count 6.5 10^3/uL (4.0-11.0)
[2025-03-23 10:58] LABS: Estimated Average Glucose 80 mg/dL; Glycohemoglobin A1C 4.4 % (4.5-6.2)
== END 2025-03-23 06:54 | disposition home or self-care (01) ==
LOC: LAB 06:53
PROVIDERS: PCP Family Medicine; Visit Provider Family Medicine
DX: Z00.00 Encounter for general adult medical examination without abnormal findings (principal)
CPT/HCPCS: 36415; 80053; 83036; 85025